=== PATIENT | male | born 1970 | race Caucasian/White ===

== ENCOUNTER 2019-12-30 09:29 | Emergency (ER) | payer BC, SELFPAY ==
[2019-12-30 09:30] VITALS: BP 184/97; PULSE 89; RESP 16; TEMP 36.3; O2SAT 96; BMI 47.3
--- NOTE | 2019-12-30 09:43 | EKG12_ITS ---
Test Reason : NIKOLAY Blood Pressure : / mmHG Vent. Rate : 076 BPM Atrial Rate : 076 BPM P-R Int : 160 ms QRS Dur : 098 ms QT Int : 388 ms P-R-T Axes : 022 031 034 degrees QTc Int : 436 ms Normal sinus rhythm Normal ECG Confirmed by DEBBIE MEDEROS, MANOJ ([id number]), development editor LUIS FERRARI ([id number]) on 01/03/2020 9:32:37 AM Referred By: DIZZY/WEAK Confirmed By:MATTHEW LEWIS MD
--- NOTE | 2019-12-30 09:43 | CT_ITS ---
STUDY: CT BRAIN WITHOUT CONTRAST REASON FOR EXAM: Male, 49 years old. DIZZINESS, DRIVING AND GOT LIGHT-HEADED, PT STATES THAT HE FEELS LIKE HE IS ON A ROLLER COASTER, WORSE WHEN MOVING HIS HEAD, HX-SLEEP APNEA RADIATION DOSAGE (If Supplied By Facility): CTDIvol = ( 44.99 ) mGy, DLP = ( 779.24 ) mGycm TECHNIQUE: Transaxial CT imaging of the brain was performed without administration of intravenous contrast material. Individualized dose optimization techniques were used for this CT. COMPARISON: No relevant priors. FINDINGS: Normal soft tissue structures. Normal calvarium. Normal size ventricles and extra-axial spaces for the patient''s age. Normal white matter tracts of the cerebral hemispheres. Normal basal ganglia and thalami. Normal brainstem. Normal cerebellum. There is no intracranial hemorrhage. There are no findings of an acute ischemic infarction. Normal visualized paranasal sinuses. CT/Brain/Head without Contrast IMPRESSION: Normal unenhanced CT scan of the brain. Electronically Signed: Misael Juan, at 10:52 EDT , Service support ,
--- NOTE | 2019-12-30 09:44 | ED.DCSUM_ITS ---
History of Present Illness Chief Complaint: Dizziness Informant: Patient Onset: Today Context: Sudden Onset Timing: Intermittent Current Severity: Mild Maximum Severity: Severe Narrative: The patient is a 49-year-old male who is otherwise healthy on no daily medications that presents to the emergency department after near syncopal episode. Patient states he was driving. He states he began to get lightheaded. He describes tunnel vision. He states he felt like he was going to pass out. He states with turning his head, it seemed to make the symptoms worse, but he does not describe a sensation of motion. He states that the sensation has passed and he still feels just mildly lightheaded. He states he is never had anything like this before. He denies any fevers or chills. He denies any vision change or trouble speaking. He has had no chest pain, weight loss, or night sweats. Prior similar symptoms: No Recent Illness/Hospitalization: No Past Medical History - Allergies and Home Meds Allergies/Adverse Reactions: Allergies No Known Allergies Allergy (Verified 12/30/19 09:32) Primary Care Physician: Wendie Dawn DO [Primary Care Provider] - Prior records reviewed: Yes Past Medical History: None Surgical History: no surgical history Smoking Status: Current some day smoker Review of Systems General: Denies: Chills, Fever, Sweats Eyes: Denies: Visual changes - bilaterally, Diplopia ENT: Denies: Rhinorrhea, Sore throat Cardiovascular: Denies: Chest pain, Palpitations Respiratory: Denies: Dyspnea, Cough, Dyspnea on exertion Gastrointestinal: Denies: Abdominal pain, Nausea, Vomiting, Diarrhea, Melena, Hematochezia Genitourinary: Denies: Dysuria, Hematuria, Frequency Musculoskeletal: Denies: Back pain, Extremity Pain Skin: Denies: Rash, Wounds Neurological: Denies: Headache, Weakness, Numbness Physical Exam Vital Signs/Narrative: Vital Signs Temp Pulse Resp BP Pulse Ox 12/30/19 09:30 97.4 F L 89 16 184/97 H 96 Inital Vital Signs reviewed: Yes General: Well nourished, Well developed, No Acute Distress Head: Normocephalic, Atraumatic Eyes: Perrl, EOMI ENT: Moist mucous membranes, No rhinorrhea Neck: Supple, Nontender Cardiovascular: Regular rate, Regular rhythm, No murmurs Respiratory: No distress, CTA bilaterally, Chest nontender Abdomen: Soft, Nontender, Nondistended, Normal bowel sounds Back: Nontender, Normal Inspection Extremities: Nontender, No edema Skin: Normal color, No rash Neurological: Alert, Oriented x3, Cranial nerves II-XII grossly intact, Normal Strength, Normal Sensation Psychological: Normal affect, Normal Mood Diagnostic/Tx/Re-eval Clinical Impression(s) from Imaging Studies Brain CT 12/30/19 09:43 IMPRESSION: Normal unenhanced CT scan of the brain. Electronically Signed: Misael Juan, at 10:52 EDT , Service support , Laboratory Last Values WBC 8.2 K/mm3 (4.4-11.0) 12/30/19 10:15 RBC 5.72 M/mm3 (4.6-6.2) 12/30/19 10:15 Hgb 16.1 g/dL (13.0-16.5) 12/30/19 10:15 Hct 51.3 % (40-54) 12/30/19 10:15 MCV 89.7 fL (80-94) 12/30/19 10:15 MCH 28.1 pg (27.0-32.0) 12/30/19 10:15 MCHC 31.4 g/dL (32-36) L 12/30/19 10:15 RDW Std Deviation 43.5 fl (35.1-43.9) 12/30/19 10:15 RDW Coeff of Meena 13.3 % (11.6-14.6) 12/30/19 10:15 Plt Count 235 K/mm3 (150-450) 12/30/19 10:15 MPV 10.9 fl (6.2-12.0) 12/30/19 10:15 Immature Gran % (Auto) 1.000 % (0.0-0.9) H 12/30/19 10:15 Neut % (Auto) 61.6 % (47-70) 12/30/19 10:15 Lymph % (Auto) 25.3 % (19-41) 12/30/19 10:15 [place] % (Auto) 8.4 % (0-10) 12/30/19 10:15 Eos % (Auto) 2.8 % (0-5) 12/30/19 10:15 Baso % (Auto) 0.9 % (0-1) 12/30/19 10:15 Absolute Neuts (auto) 5.1 X10^3/uL (2.0-7.7) 12/30/19 10:15 Absolute Lymphs (auto) 2.08 X10^3/uL (0.83-4.51) 12/30/19 10:15 Nucleated RBC % 0 % (0-5) 12/30/19 10:15 Sodium 138 mmol/L (136-145) 12/30/19 10:15 Potassium 4.6 mmol/L (3.5-5.1) 12/30/19 10:15 Chloride 105 mmol/L (98-107) 12/30/19 10:15 Carbon Dioxide 28.0 mmol/L (21.0-32.0) 12/30/19 10:15 Anion Gap 5 (5-15) 12/30/19 10:15 BUN 14 mg/dL (7-18) 12/30/19 10:15 Creatinine 1.17 mg/dL (0.70-1.30) 12/30/19 10:15 Estim Creat Clear Calc 77.12 ml/min 12/30/19 10:15 Est GFR (MDRD) Af Amer 84 mL/min (>60) 12/30/19 10:15 Est GFR (MDRD) Non-Af 70 mL/min (>60) 12/30/19 10:15 BUN/Creatinine Ratio 12.0 RATIO (10-20) 12/30/19 10:15 Glucose 88 mg/dL (74-106) 12/30/19 10:15 Calcium 9.3 mg/dL (8.5-10.1) 12/30/19 10:15 Total Bilirubin 0.70 mg/dL (0.20-1.00) 12/30/19 10:15 AST 40 U/L (15-37) H 12/30/19 10:15 ALT 58 U/L (16-61) 12/30/19 10:15 Alkaline Phosphatase 119 U/L (45-117) H 12/30/19 10:15 Total Protein 8.8 g/dL (6.4-8.2) H 12/30/19 10:15 Albumin 4.1 g/dL (3.2-5.0) 12/30/19 10:15 Globulin 4.7 g/dL (2.2-4.2) H 12/30/19 10:15 Albumin/Globulin Ratio 0.9 RATIO (0.9-2.4) 12/30/19 10:15 - Rhythm Strip Rhythm Strip: Sinus Rhythm Rate: 80 Ectopy: None - EKG Initial EKG Interpretation: Sinus Rhythm, No Acute Injury Pattern Prior: No Prior - Medical Decision Making The patient presents after near syncopal episode. He states he was driving, moved his head, and began to have tunnel vision. He states that it was fleeting. He states now, he feels back to himself. He has a nonfocal neurologic examination. There are some components that seem more like a vertiginous issue but some that seem more vagal. I cannot re-create his symptoms with rapid alternating head movements. I did obtain metabolic work-up, EKG, and head CT. These are unremarkable. Without intervention, the patient's repeat blood pressure was 135/86. At this point, I do feel that he safe outpa tient follow-up. I am going to have him follow-up with his primary care to for blood pressure recheck. He was counseled on concerning symptoms and reasons to return. He will be discharged home. Impression 1. Near syncope ED Disposition - Plan for ED Patient: Instructions: ED Near Syncope Vasovagal Referrals: Wendie Dawn DO [Primary Care Provider] -
[2019-12-30] MEDS: 0.9% Normal Saline 1,000 ML 1000 ML IV (10:17)
[2019-12-30 10:56] LABS: Absolute Lymphocyte Count 2.08 X10^3/uL (0.83-4.51); Absolute Neutrophil Count 5.1 X10^3/uL (2.0-7.7); Basophil# 0.07 X10^3/uL; Basophil% 0.9 % (0-1); Eosinophil# 0.23 X10^3/uL; Eosinophils% 2.8 % (0-5); Hematocrit 51.3 % (40-54); Hemoglobin 16.1 g/dL (13.0-16.5); Lymphocyte # 2.08 X10^3/ul (4.0); Lymphocyte % 25.3 % (19-41); Mean Corp Hgb Conc 31.4 g/dL (32-36); Mean Corpuscular Hgb 28.1 pg (27.0-32.0); Mean Corpuscular Volume 89.7 fL (80-94); Mean Platelet Vol. 10.9 fl (6.2-12.0); Monocyte# 0.69 X10^3/uL; Monocyte% 8.4 % (0-10); NRBC Flagged by Analyzer 0 % (0-5); Neutrophil # 5.08 X10^3/uL (2.7-7.7); Neutrophil % 61.6 % (47-70); Platelet Count 235 K/mm3 (150-450); RBC Distribution Width CV 13.3 % (11.6-14.6); RBC Distribution Width SD 43.5 fl (35.1-43.9); Red Blood Count 5.72 M/mm3 (4.6-6.2); White Blood Count 8.2 K/mm3 (4.4-11.0)
[2019-12-30 11:00] LABS: ALB/GLOB Ratio 0.9 RATIO (0.9-2.4); AST(SGOT) 40 U/L (15-37); Alanine Aminotransfer ALT/SGPT 58 U/L (16-61); Albumin, Serum 4.1 g/dL (3.2-5.0); Alkaline Phosphatase 119 U/L (45-117); Anion Gap 5 (5-15); BUN 14 mg/dL (7-18); Calcium,Total 9.3 mg/dL (8.5-10.1); Chloride 105 mmol/L (98-107); Creatinine, Serum 1.17 mg/dL (0.70-1.30); EST Glomerular Filtration Rate 70 mL/min (>60); Est Glom Filt Rate - Afr Amer 84 mL/min (>60); Estimated Creatinine Clearance 77.12 ml/min; Globulin 4.7 g/dL (2.2-4.2); Glucose 88 mg/dL (74-106); Potassium 4.6 mmol/L (3.5-5.1); Protein, Total 8.8 g/dL (6.4-8.2); Sodium Level 138 mmol/L (136-145)
[2019-12-30 11:07] VITALS: BP 147/85; BP 148/88; BP 169/89; PULSE 79; PULSE 80; PULSE 87
== END 2019-12-30 12:08 | disposition home or self-care (01) ==
LOC: ED 10:57
PROVIDERS: Emergency Provider Emergency Medicine; PCP Internal Medicine
DX: R55 Syncope and collapse (principal)
CPT/HCPCS: 70450; 80053; 85025; 93005; 96360; 96361; 99285; J7030

== ENCOUNTER → 2022-12-27 | Outpatient (CLI) | payer OTHER, SELFPAY ==
--- NOTE | 2022-12-27 14:43 | CT_ITS ---
HISTORY: Lower abdominal pain, distension, diarrhea, change in bowel habits. TECHNIQUE: Helically acquired images were obtained of the abdomen and pelvis after the intravenous administration of 100 mL Isovue-370. Oral contrast also administered. A radiation dose optimization technique was used for this scan. 512 images. COMPARISON: None. FINDINGS: LOWER CHEST: Lung bases clear. BOWEL: Bowel including appendix nondilated. Colonic diverticulosis without focal inflammatory change observed. PERITONEUM: No significant ascites. LIVER: Fatty infiltration. GALLBLADDER/BILIARY TREE: Gallbladder present. SPLEEN/PANCREAS/ADRENAL GLANDS: Homogeneous and nonenlarged. KIDNEYS: Renal sinus cysts bilaterally. VESSELS: No abdominal aortic aneurysm. PELVIC ORGANS: Unremarkable. ABDOMINAL WALL: Small fat-containing left periumbilical and inguinal hernias. BONES: Mild degenerative change CT/Abdomen/Pelvis WITH Contrast IMPRESSION: Colonic diverticulosis without acute diverticulitis. Hepatic steatosis. Bilateral renal sinus cysts. Electronically Signed: Samantha Rojas MD at 14:35 EDT ,
== END | disposition home or self-care (01) ==
LOC: CT 14:42
PROVIDERS: PCP Internal Medicine; Referring Provider Internal Medicine; Visit Provider Internal Medicine
DX: R10.84 Generalized abdominal pain (principal)
CPT/HCPCS: 74177; Q9967

== ENCOUNTER → 2025-03-17 | Outpatient (CLI) | payer BC, SELFPAY ==
[2025-03-17 13:38] LABS: Cholesterol 206 mg/dL (<=200); Glucose 92 mg/dL (70-99); Low Density Lipoprotein Calc. 128 mg/dL; Triglycerides 173 mg/dL; Very Low Density Lipoprotein 35 mg/dL (5-40); cholesterol:hdl ratio screen 4.34
--- OUTSIDE RECORDS SUMMARY | 2025-03-17 14:18 | XMS RPT_ITS | CCD ---
Author Organization [facility] Care Team Providers Care Iron Caster Name Role Phone López, Wendie Unavailable Jay Adams Unavailable Unavailable Laxmi Craig E Unavailable Unavailable Unavailable Herb, Edie Unavailable Unavailable Mancatherine, Sandy Unavailable Unavailable Heather Mock Unavailable Unavailable López DO, Wendie Unavailable [place] FLASH WELDING MACHINE OPERATOR, Radha Unavailable Unavailable Unavailable Unavailable Sabra Norman MD Unavailable [phone] López DO, Wendie Unavailable [phone] [place] CENTRIFUGE OPERATOR, Jamila Unavailable Unavailable Sabra Norman MD Unavailable Alyce Garcias CNP Unavailable [phone] [place] FLASH WELDING MACHINE OPERATOR, Kayela Unavailable Unavailable Herb CENTRIFUGE OPERATOR, Edie Unavailable Unavailable López DO, Wendie Attending Unavailable López DO, Wendie Referring Unavailable López DO, Wendie Consulting Unavailable Alice Pitts MA Unavailable Unavailable Robotham, Mallory Unavailable [place] CENTRIFUGE OPERATOR, Jorge L Unavailable Unavailable López, Wendie Primary Care Unavailable López, Wendie Referring Unavailable Leonardo Braswell Attending Unavailable Jayro Harrison Attending Unavailable López, Wendie Primary Care Unavailable Alice Hester Attending Unavailable López, Wendie Primary Care Unavailable López, Wendie Referring Unavailable Medications Completed/Discontinued Medications Medication Drug Class(es) Dates Sig (Normalized) Sig (Original) amoxicillin 875 mg / clavulanate 125 mg oral tablet (20 sources) Penicillin-class Antibacterial Start: 09-13-2019 End: 09-23-2019 take 1 tablet by mouth twice daily Amoxicillin-Pot Clavulanate 875-125 MG Oral Tablet 1 (one) Tablet bid for 10 days Quantity: 20 {Tablet} Refills: 0 Ordered: 13-Sep-2019 López KOROMA Wendie López KOROMA Wendie Start : 13-Sep-2019 End : 23-Sep-2019 Inactive Start: 07-25-2016 End: 08-04-2016 take 1 tablet by mouth twice daily Augmentin 875-125 MG Oral Tablet 1 (one) Tablet BID for 10 days Quantity: 20 {Tablet} Refills: 0 Ordered: 25-Jul-2016 Paula Diaz Start : 25-Jul-2016 End : 04-Aug-2016 Inactive Comments: Take with foodMay substitue generic Comment on above: Take with foodMay jackson bstitue generic aspirin 325 mg oral tablet (11 sources) Platelet Aggregation Inhibitor, Nonsteroidal Anti-inflammatory Drug Start: 06-19-19 End: 01-01-20 take 1 tablet by mouth in the morning Aspirin 325 MG Oral Tablet 1 (one) Tablet in am for 0 days Quantity: 30 {Tablet} Refills: 0 Ordered: 31-Dec-2021 Jamila Costa LPN Start : 19-Jun-2021 End : 31-Dec-2021 Inactive [facility] Blood Pressure Monitor Miscellaneous (5 sources) Start: 01-01-20 [facility] Blood Pressure Monitor Miscellaneous as directed for 0 days Quantity: 1 Kit Refills: 0 Ordered: 31-Dec-2021 Sarah Mays CMA Start : 31-Dec-2021 Active Comments: check BP at home twice per day and f/u in a week Start: 12-31-2021 [facility] Blood Pres sure Monitor Miscellaneous as directed for 0 days Quantity: 1 Kit Refills: 0 Ordered: 31-Dec-2021 Alyce Garcias CNP Start : 31-Dec-2021 Active Comments: check BP at home twice per day and f/u in a week Comment on above: check BP at home twi ce per day and f/u in a week 24 hr etodolac 400 mg extended release oral tablet (20 sources) Nonsteroidal Anti-inflammatory Drug Start: 5 End: 5 take 2 tablets by mouth once daily at mealtime ETODOLAC ER, 400MG (Oral Tablet Extended Release 24 Hour) 2 (two) Tablet ER 24HR qd with food for 0 days Quantity: 20 {Tablet} Refills: 0 Ordered: 16-Mar-2015 Paula Hernandez RN Start : 23-Feb-2015 End : 16-Mar-2015 Inactive Comments: start after the prednisone is completed adn take with food Comment on above: start after the pred nisone is completed adn take with food famotidine 40 mg oral tablet (11 sources) Histamine-2 Receptor Antagonist Start: 2 End: 2 take 1 tablet by mouth twice daily Pepcid 40 MG Oral Tablet 1 (one) Tablet bid for 0 days Quantity: 20 {Tablet} Refills: 0 Ordered: 31-Dec-2021 Jamila Costa LPN Start : 19-Jun-2021 End : 31-Dec-2021 Inactive predniSONE 20 mg oral tablet (20 sources) Start: 5 End: 5 PREDNISONE, 20MG (Oral Tablet) 1 (one) Tablet bid for one day then qd for 2 days for 0 days Quantity: 4 {Tablet} Refills: 0 Ordered: 16-Mar-2015 Paula Hernandez RN Start : 23-Feb-2015 End : 16-Mar-2015 Inactive Comments: take with food Comment on above: take with food NEGATED: Highlighted row has not occurred!drug or medication (13 sources) No Known Histori marcellus Medications NEGATED: Highlighted row has not occurred!No Known Historical Medications (6 sources) No Known Histori marcellus Medications Problems Active Problems Problem Classification Problem Date Documented Date Episodic/Chronic Abdominal pain (5 sources) Generalized abdominal pain; Translations: [Abdominal pain, generalized] 12-16-2022 Episodic Administrative/social admission (1 source) Administrative reason for encounter; Translations: [Encounter for other administrative examinations] 09-02-2022 Episodic Anxiety disorders (20 sources) Acute stress disorder; Translations: [Stress response] 12-31-2021 Chronic Comment on above: declines prn or sche duled meds. we are working on getting in better health in general, declines counseling but is aware to call if changes mindbetter since last visit a few weeks ago. Trying to take better care of self, dealing with nephew suicide. Cardiac dysrhythmias (20 sources) Tachycardia; Translations: [Tachycardia] 04-06-2019 Episodic Comment on above: this resolved to rat e of 80 andon ekg 91 Disorders of lipid metabolism (12 sources) Hyperlipidemia; Translations: [Hyperlipidemia] 01-08-2022 Chronic Comment on above: -he would really lik e to work hard on diet and exercise, wt loss. He lost about 100# about 6 yrs ago but when moved back to this area gained it all back. Advised should do 30min x5 days per week minimum. Cut back on breads as eats a lot of that. Also watch sugar intake, he does feel very poorly for 1-3 days after high sugar diet and has been working on cutting back.repeat lipids in 3 months and if he is still not well controlled, I strongly recommend atorvastatin 40mghe is appropriate for pharmacological managment but declines for now Fever of unknown origin (20 sources) Fever with chills; Translations: [Fever and chills] Resolved : 01-06-20 21 05-25-2020 Episodic Fluid and electrolyte disorders (20 sources) Hyperosmolality and hypernatremia; Translations: [Hypernatremia] Resolved : 01-01-2004-07-2019 Episodic Headache; including migraine (6 sources) Headache; Translations: [Headache] 07-12-2022 Episodic Comment on above: likely 2/2 allergy/s inus symptoms. ibuprofen and tylenol together if no contraindications. Immunizations and screening for infectious disease (20 sources) Contact with and (suspected) exposure to other viral communicable diseases; Translations: [Contact with or exposure to other viral diseases] 05-25-2020 Episodic Nausea and vomiting (20 sources) Nausea; Translations: [Nausea and vomiting] Resolved : 01-01-20 22 04-06-2019 Episodic Other circulatory disease (20 sources) Elevated blood-pressure reading without diagnosis of hypertension; Translations: [Elevated blood-pressure reading without diagnosis of hypertension] Resolved : 03-16-20 15 04-06-2019 Episodic Comment on above: -start checking BP a t home and record, f/u in a week and bring BP machine and list of readings.-If remains elevated, would start antihypertensivehigh stress with of nephew. Risk factors include stress and obesity. home readings are go od so will have him keep a log of one a.m. and one p.m. reading and go from there because he is really not wanting to start meds. I did extensively explain the risks of untreated hypertension and complications potentially, he does have multiple risk factors and a 10yr cardiovascular risk of 10.8%. We reviewed this and I gave him a handout as well. 131/78, 136/79, 147/89, 129/76, 128/73, 132/75 123/72, 129/76possible white coat syndrome.high stress with of nephew. Risk factors include stress and obesity.-start checking BP at home and record, f/u in a week and bring BP machine and list of readings.-If remains elevated, would start antihypertensive-took various bp's while here and all remain significantly elevated Other disorders of stomach and duodenum (6 sources) Upset stomach; Translations: [Stomach upset] 07-12-2022 Episodic Comment on above: on occasion Other gastrointestinal disorders (20 sources) Diarrhea; Translations: [Diarrhea] Resolved : 01-01-20 22 03-13-2020 Episodic Other gastrointestinal disorders (4 sources) Abdominal bloating; Translations: [Bloated abdomen] 12-16-2022 Episodic Other gastrointestinal disorders (4 sources) Change in stool caliber; Translations: [Change in stool caliber] 12-16-2022 Episodic Other lower respiratory disease (20 sources) Cough; Translations: [Cough] Resolved : 01-06-20 21 04-06-2019 Episodic Other nutritional; endocrine; and metabolic disorders (20 sources) Body mass index 40+ - severely obese; Translations: [BMI 50.0-59.9, adult] 04-06-2019 Chronic Other screening for suspected conditions (not mental disorders or infectious disease) (14 sources) Patient encounter status; Translations: [Encounter for lipid screening for cardiovascular disease] 01-02-2022 Episodic Other upper respiratory disease (16 sources) Seasonal allergy; Translations: [Seasonal allergies] 12-31-2021 Chronic Comment on above: start coricidin hbp for decongestant and cetirizine daily for the next week. push fluids (water). Other upper respiratory disease (6 sources) Allergic rhinitis; Translations: [Allergic rhinitis] 07-12-2022 Chronic Comment on above: mild, use PRN saline nasal spray or Flonase-take 10mg cetirizine daily-coricidin HBP, discussed how decongestants can raise BP-supportive care Other upper respiratory infections (20 sources) Bacterial sinusitis; Translations: [Sinusitis, bacterial] Resolved : 01-06-2004-06-2019 Chronic Residual codes; unclassified (20 sources) Chill; Translations: [Chills (without fever)] 04-06-2019 Episodic Residual codes; unclassified (20 sources) Non-smoker; Translations: [Non-smoker] 01-05-2021 Episodic Residual codes; unclassified (20 sources) At increased risk of cardiovascular disease; Translations: [At increased risk for cardiovascular disease] 01-02-2022 Episodic Comment on above: CV risk score 10.8% Spondylosis; intervertebral disc disorders; other back problems (20 sources) Low back pain; Translations: [Low back pain] Resolved : 03-16-2004-06-2019 Episodic Viral infection (17 sources) Disease caused by 2018-nCoV; Translations: [COVID] 06-19-2021 Episodic Past or Other Problems Problem Classification Problem Date Documented Da te Episodic/Chronic Headache; including migraine (20 sources) Headache; including migraine Unclassified (20 sources) Unspecified Diagnosis 04-06-2019 Unclassified (19 sources) Elevated Blood Pressure without diagnosis of Hypertension (796.2) Unclassified (20 sources) Unclassified (20 sources) Non-smoker; Translations: [Non-smoker] 04-06-2019 Unclassified (20 sources) Sinusitis, bacterial Unclassified (20 sources) BMI 50.0-59.9, adult Unclassified (13 sources) Serum sodium elevated Unclassified (15 sources) Exposure to COVID-19 virus Unclassified (3 sources) Elevated BP without diagnosis of hypertension Unclassified (2 sources) Stress response Unclassified (2 sources) Encounter for lipid screening for cardiovascular disease Unclassified (2 sources) At increased risk for cardiovascular disease Viral infection (5 sources) Disease caused by 2019-nCoV Results Test Name Value Interpretation Reference Range Facility Urgent Care Visit Reporton 0 08-24-2024 Urgent Care Visit Report [facility] [address], [address] [place] [address] OFFICE VISIT Date of Service: 08/24/24 MR#: [id number] Acct: [id number] Name: LB CUEVA Rep #: [id number] : 1970 Provider: INDERJIT Alexandra Age/Sex: 54/M Location: [facility] Status: Signed Intake Vital Signs 01/07/23 13:44 Height 5 ft 10 in Intake Visit 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 Mallory Capps MD) Abdominal pain History of change in bowel patterns Surgical History (Updated 01/07/23 @ 13:41 by Korin Tamayo) History of open reduction and internal fixation (ORIF) procedure Family History (Updated 01/07/23 @ 13:43 by Korin Tamayo) Grandmother Breast cancer Mother Cancer Lung Cancer CVA (cerebral vascular accident) Father Cancer Hypertension Brother Cancer Hypertension Social History (Updated 01/07/23 @ 13:44 by Korin Tamayo) Smoking Status: Never smoker alcohol intake: current alcohol intake frequency: a few times a week Alcohol type: hard liquor substance use type: does not use HPI HPI Details: LB CUEVA, is a 54 M who presents to the office today for Office Procedures Physical Exam Coding PE Coding DOT PE: Yes Coding Level of Care Code No Charge Diagnoses Encounter for examination required by Department of Transportation (DOT) Z02.89 Assessment and Plan Assessment and Plan (1) Encounter for examination required by Department of Transportation (DOT): Status: Acute 08/24/24 1314 Date Leonardo Samueligngil Signature: Date (if applicable) CC: Normal [facility] Knee 4 or More Viewson 04-06 Knee 4 or More Views [facility] [address] [place] [address] Knee 4 or More Views MR#: [id number] Acct: [id number] Name: LB CUEVA Rep #: [id number] : 1970 M 54 From: Dulce Maria Benitez MD PCP: Dr. Wendie Dawn, Status: DEP AMB Study: Knee 4 or More Views Date of Exam: 04/06/24 Exam# [id number] Ordering Dr: Alyce Garcias [id number] INDICATION: INCREASED PAIN -- KNEE PAIN RIGHT ANTERIOR EXAMINATION/TECHNIQUE: X-RAY - RIGHT XR Knee Complete 4 Views or More 4 VIEWS COMPARISON: Left knee dated September 19, 2005 FINDINGS: SOFT TISSUES: No soft tissue swelling or gas. No radiopaque foreign body. BONES/JOINTS: No acute fracture or subluxation.. There is lateral patellar tilt. There are mild degenerative changes of the medial compartment and the patellofemoral articulation. No sclerotic or destructive changes observed. RAD/Knee 4 or More Views IMPRESSION: Degenerative changes. Lateral patellar tilt. Electronically Signed: Dulce Maria Benitez MD at 8:58 EST , CC: TATYANA Garcias; Dr. Wendie Dawn DO Design Studio Consultant: Signed Normal [facility] C-REACTIVE PROTEIN ([id number])Or dered By: Director Medical Science on 12-17-2022 CRP [Mass/Vol] 12 mg/L Abnormal 0-10 Comprehens nini [facility]; [facility] Work Phone: Comment on above: PATIENT NOT FASTINGP ERFORMED BY: LabcoCarrier ClinicGyornd9396 [facility] [id number] CBC W/AUTO DIFF WBC ([id number])O rdered By: Director Medical Science on 12-17-2022 Basophils (Bld) [#/Vol] 0.1 10*3/uL Normal 0.0-0.2 [facility]; [facility] Work Phone: Comment on above: PATIENT NOT FASTINGP ERFORMED BY: BILLIE [facility] [id number] [facility] [id number] Basophils/100 WBC (Bld) 1 % Normal [facility]; [facility] Work Phone: Comment on above: PATIENT NOT FASTINGP ERFORMED BY: [facility] Offxwj3921 [facility] [id number] Eosinophils (Bld) [#/Vol] 0.3 10*3/uL Normal 0.0-0.4 [facility]; [facility] Work Phone: Comment on above: PATIENT NOT FASTINGP ERFORMED BY: [facility] Gxzydo7127 [facility] [id number] Eosinophils/100 WBC (Bld) 3 % Normal [facility]; [facility] Work Phone: Comment on above: PATIENT NOT FASTINGP ERFORMED BY: Gonzaloco Qaqdyo2560 [facility] [id number] Erythrocyte distribution width (RBC) [Ratio] 13.1 % Normal 11.6-15.4 [facility]; [facility] Work Phone: Comment on above: PATIENT NOT FASTINGP ERFORMED BY: [facility] Tiygph5594 [facility] [id number] Hematocrit (Bld) [Volume fraction] 45.8 % Normal 37.5-51.0 [facility]; [facility] Work Phone: Comment on above: PATIENT NOT FASTINGP ERFORMED BY: BILLIE [facility] Rphlju8693 [facility] [id number] Hemoglobin (Bld) [Mass/Vol] 15.2 g/dL Normal 13.0-17.7 [facility]; [facility] Work Phone: Comment on above: PATIENT NOT FASTINGP ERFORMED BY: BILLIE [facility] SchafferQwtxkm2318 [address]Dublin [place] [id number] Immature granulocytes (Bld) [#/Vol] 0.1 10*3/uL Normal 0.0-0.1 [facility]; [facility] Work Phone: Comment on above: PATIENT NOT FASTINGP ERFORMED BY: CB [facility] Ncxvsp8255 [address]Dublin [place] [id number] Immature granulocytes/100 WBC (Bld) 1 % Normal [facility]; [facility] Work Phone: Comment on above: PATIENT NOT FASTINGP ERFORMED BY: BILLIE [facility] Brgaht2265 [address]blin [place] [id number] Lymphocytes (Bld) [#/Vol] 2.3 10*3/uL Normal 0.7-3.1 [facility]; [facility] Work Phone: Comment on above: PATIENT NOT FASTINGP ERFORMED BY: [facility] Nvnrvb9435 [address]Dublin [place] [id number] Lymphocytes/100 WBC (Bld) 25 % Normal [facility]; [facility] Work Phone: Comment on above: PATIENT NOT FASTINGP ERFORMED BY: BILLIE Labarn[facility]fo Duaifl[address] [facility] [place] [id number] MCH (RBC) [Entitic mass] 28.9 pg Normal 26.6-33.0 [facility]; [facility] Work Phone: Comment on above: PATIENT NOT FASTINGP ERFORMED BY: CB [facility] Kljddj1915 [address]Dublin [place] [id number] MCHC (RBC) [Mass/Vol] 33.2 g/dL Normal 31.5-35.7 [facility]; [facility] Work Phone: Comment on above: PATIENT NOT FASTINGP ERFORMED BY: CB [facility] Mhsbgb5544 [address]Dublin [place] [id number] MCV (RBC) [Entitic vol] 87 fL Normal 79-97 [facility]; [facility] Work Phone: Comment on above: PATIENT NOT FASTINGP ERFORMED BY: CB [facility] Xwgkaw2126 [address]Dublin [place] [id number] Monocytes (Bld) [#/Vol] 0.9 10*3/uL Normal 0.1-0.9 [facility]; [facility] Work Phone: Comment on above: PATIENT NOT FASTINGP ERFORMED BY: CB [facility] Znlzod3920 [address]Dublin [place] [id number] Monocytes/100 WBC (Bld) 10 % Normal [facility]; [facility] Work Phone: Comment on above: PATIENT NOT FASTINGP ERFORMED BY: CB [facility] Hdeeez6296 [address]Dublin [place] [id number] Neutrophils (Bld) [#/Vol] 5.6 10*3/uL Normal 1.4-7.0 [facility]; [facility] Work Phone: Comment on above: PATIENT NOT FASTINGP ERFORMED BY: CB [facility] Jncrli2790 [address]Dublin [place] [id number] Neutrophils/100 WBC (Bld) 60 % Normal [facility]; [facility] Work Phone: Comment on above: PATIENT NOT FASTINGP ERFORMED BY: CB [facility] Wyqxjw9438 [address]Dublin [place] [id number] Platelets (Bld) [#/Vol] 239 10*3/uL Normal 150-450 [facility]; [facility] Work Phone: Comment on above: PATIENT NOT FASTINGP ERFORMED BY: CB [facility] Vvgonk8286 [address]Dublin [place] [id number] RBC (Bld) [#/Vol] 5.26 10*6/uL Normal 4.14-5.80 [facility]; [facility] Work Phone: Comment on above: PATIENT NOT FASTINGP ERFORMED BY: CB [facility] Icxidg0484 [address] [place] [id number] WBC (Bld) [#/Vol] 9.3 10*3/uL Normal 3.4-10.8 [facility]; [facility] Work Phone: Comment on above: PATIENT NOT FASTINGP ERFORMED BY: BILLIE [facility] Wyoxux6095 [address]Dublin [place] [id number] METABOLIC PANEL, COMPREHENSI VE ([id number])Ordered By: Director Medical Science on 12-17-2022 Albumin [Mass/Vol] 4.3 g/dL Normal 3.8-4.9 [facility]; [facility] Work Phone: Comment on above: PATIENT NOT FASTINGP ERFORMED BY: BILLIE [facility] Wxjiyv4998 [address]Dublin [place] [id number] Albumin/Globulin [Mass ratio] 1.4 {ratio} Normal 1.2-2.2 [facility]; [facility] Work Phone: Comment on above: PATIENT NOT FASTINGP ERFORMED BY: BILLIE [facility] Unxeuj9665 [address] RoadAtrium Health Unionin [place] [id number] ALP [Catalytic activity/Vol] 120 U/L Normal 44-121 [facility]; [facility] Work Phone: Comment on above: PATIENT NOT FASTINGP ERFORMED BY: BILLIE [facility] Myhhcb8587 [address]Dublin [place] [id number] ALT [Catalytic activity/Vol] 31 U/L Normal 0-44 [facility]; [facility] Work Phone: Comment on above: PATIENT NOT FASTINGP ERFORMED BY: BILLIE [facility] Tmsdmb5600 [address]Dublin [place] [id number] AST [Catalytic activity/Vol] 30 U/L Normal 0-40 [facility]; [facility] Work Phone: Comment on above: PATIENT NOT FASTINGP ERFORMED BY: BILLIE [facility] Ansspp3014 [address]Dublin [place] [id number] Bilirubin [Mass/Vol] 0.7 mg/dL Normal 0.0-1.2 Comp [facility] Internal [facility]; [facility] Work Phone: Comment on above: PATIENT NOT FASTINGP ERFORMED BY: CB [facility] Uksvmd5675 [address]Dublin [place] [id number] Calcium [Mass/Vol] 9.5 mg/dL Normal 8.7-10.2 [facility]; [facility] Work Phone: Comment on above: PATIENT NOT FASTINGP ERFORMED BY: CB [facility] Xvktrx6639 [address]Dublin [place] [id number] Chloride [Moles/Vol] 102 mmol/L Normal 96-106 Comp rehensive [facility]; [facility] Work Phone: Comment on above: PATIENT NOT FASTINGP ERFORMED BY: CB [facility] Uyyrid5951 [address]Dublin [place] [id number] CO2 [Moles/Vol] 23 mmol/L Normal 20-29 Com[facility]hen [facility]; [facility] Work Phone: Comment on above: PATIENT NOT FASTINGP ERFORMED BY: CB [facility] [id number] [address]Dublin [place] [id number] Creatinine [Mass/Vol] 1.03 mg/dL Normal 0.76-1.27 [facility]; [facility] Work Phone: Comment on above: PATIENT NOT FASTINGP ERFORMED BY: CB [facility] Tatbcy3496 [address]Dublin [place] [id number] GFR/1.73 sq M.predicted among non-blacks MDRD (S/P/Bld) [Vol rate/Area] 86 mL/min/{1.73_m2} Normal Comprehensiv e Internal Medicine; [facility] Work Phone: Comment on above: PATIENT NOT FASTINGP ERFORMED BY: CB [facility] Lzocfc6652 [address]Dublin [place] [id number] Globulin (S) [Mass/Vol] 3.0 g/dL Normal 1.5-4.5 [facility]; [facility] Work Phone: Comment on above: PATIENT NOT FASTINGP ERFORMED BY: CB [facility] Pqrgui9117 [address]Dublin [place] [id number] Glucose [Mass/Vol] 90 mg/dL Normal 70-99 [facility]; [facility] Work Phone: Comment on above: PATIENT NOT FASTINGP ERFORMED BY: BILLIE [facility] Mwrzzr3838 [address]Dublin [place] [id number] Potassium [Moles/Vol] 4.8 mmol/L Normal 3.5-5.2 [facility]; [facility] Work Phone: Comment on above: PATIENT NOT FASTINGP ERFORMED BY: CB [facility] Zeshic2899 [address]Dublin [place] [id number] Protein [Mass/Vol] 7.3 g/dL Normal 6.0-8.5 [facility] Internal Medicine; [facility] Work Phone: Comment on above: PATIENT NOT FASTINGP ERFORMED BY: CB [facility] Iibqdh05[address]Dublin [place] [id number] Sodium [Moles/Vol] 141 mmol/L Normal 134-144 [facility] Internal [facility]; [facility] Work Phone: Comment on above: PATIENT NOT FASTINGP ERFORMED BY: CB [facility] Femwgc8014 [address] RoadDublin [place] [id number] Urea nitrogen [Mass/Vol] 15 mg/dL Normal 6-24 [facility]; [facility] Work Phone: Comment on above: PATIENT NOT FASTINGP ERFORMED BY: CB [facility] Werwuv1947 [address]Dublin [place] [id number] Urea nitrogen/Creatinine [Mass ratio] 15 mg/mg Normal 9-20 [facility]; [facility] Work Phone: Comment on above: PATIENT NOT FASTINGP ERFORMED BY: CB [facility] Yypxen0059 [address] RoadDublin [place] [id number] MICROALBUMINOrdered By: Syst em Overhead Distribution Engineer on 12-17-2022 Albumin DL <= 20 mg/L (U) [Mass/Vol] 7.6 ug/mL Normal Comprehensiv e Internal Medicine; [facility] Work Phone: Comment on above: PATIENT NOT FASTINGP ERFORMED BY: CB [facility] Kljapc5710 [address]Dublin [place] [id number] Albumin/Creatinine (U) [Mass ratio] 5 {mg/g_creat} Normal 0-29 [facility]; [facility] Work Phone: Comment on above: Normal: 0 - 29 Moder ately increased: 30 - 300 Severely increased: >300 PATIENT NOT FASTINGP ERFORMED BY: BILLIE [facility] Vpkwse0259 [address] RoadDublin [place] [id number] Creatinine (U) [Mass/Vol] 156.3 mg/dL Normal [facility]; [facility] Work Phone: Comment on above: PATIENT NOT FASTINGP ERFORMED BY: BILLIE [facility] Tbtczn5409 [address]Dublin [place] [id number] Sed Rate Erythrocyte (87108) Ordered By: Director Medical Science on 12-17-2022 ESR (Bld) [Velocity] 27 mm/h Normal 0-30 Comp rehensive Internal Medicine; [facility] Work Phone: Comment on above: PATIENT NOT FASTINGP ERFORMED BY: BILLIE [facility] Esqjch9085 [address]Dublin [place] [id number] TSH ([id number])Ordered By: Flasma m Overhead Distribution Engineer on 12-17-2022 TSH Qn 1.580 {uIU/mL} Normal 0.450-4.50 0 [facility]; [facility] Work Phone: Comment on above: PATIENT NOT FASTINGP ERFORMED BY: BILLIE [facility] Qjkuzu[address] [facility] [place] [id number] URINALYSIS, W/ MICRO ([id number]) Ordered By: Director Medical Science on 12-17-2022 Appearance (U) Clear Normal Comprehens nini Internal Medicine; [facility] Work Phone: Comment on above: PATIENT NOT FASTINGP ERFORMED BY: CB [facility] Crthrx1063 [address]Dublin [place] [id number] Bilirubin Ql (U) Negative Normal Comprehe nsive Internal Medicine; [facility] Work Phone: Comment on above: PATIENT NOT FASTINGP ERFORMED BY: CB [facility] Xlzfjz3006 [address]Dublin [place] [id number] Color (U) Yellow Normal [facility]; [facility] Work Phone: Comment on above: PATIENT NOT FASTINGP ERFORMED BY: BILLIE [facility]Mad[facility] [id number] Glucose Ql (U) Negative Normal Comprehens nini Internal Medicine; [facility] Work Phone: Comment on above: PATIENT NOT FASTINGP ERFORMED BY: BILLIE Jacobo Lidusp5720 [facility] [id number] Hemoglobin Ql (U) Negative Normal Compreh ensive Internal Medicine; [facility] Work Phone: Comment on above: PATIENT NOT FASTINGP ERFORMED BY: BILLIE Sashaines SchafferQsdcqn4047 [facility] [id number] Ketones Ql (U) Negative Normal Comprehens nini Internal Medicine; [facility] Work Phone: Comment on above: PATIENT NOT FASTINGP ERFORMED BY: BILLIE Gonzalotheresa SchafferVpmisc4986 [facility] [id number] Leukocyte esterase Test strip Ql (U) Negative Normal [facility]; [facility] Work Phone: Comment on above: PATIENT NOT FASTINGP ERFORMED BY: BILLIE Gonzalotheresa SchafferVpebdz4540 [facility] [id number] Microscopic observation LM Nom (Urine sed) MICRON Normal [facility]; [facility] Work Phone: Comment on above: Microscopic follows if indicated. PATIENT NOT FASTINGP ERFORMED BY: BILLIE Jacobo Schafferlin6370 [facility] [id number] Microscopic observation LM Nom (Urine sed) See below: Normal [facility]; [facility] Work Phone: Comment on above: Microscopic was delores cated and was performed. PATIENT NOT FASTINGP ERFORMED BY: BILLIE Jacobo Yqsheh6637 [facility] [id number] Nitrite Ql (U) Negative Normal Comprehens nini Internal Medicine; [facility] Work Phone: Comment on above: PATIENT NOT FASTINGP ERFORMED BY: CB [facility] Eejiod[address] [facility] [place] [id number] pH (U) 7.5 [pH] Normal 5.0-7.5 [facility]; [facility] Work Phone: Comment on above: PATIENT NOT FASTINGP ERFORMED BY: [facility] Cpkpsa[address] [facility] [id number] Protein Ql (U) Negative Normal Comprehens nini Internal Medicine; [facility] Work Phone: Comment on above: PATIENT NOT FASTINGP ERFORMED BY: [facility] Ujztpg6914 [facility] [id number] Specific gravity (U) [Rel density] 1.022 1 Normal 1.005-1.03 0 [facility]; [facility] Work Phone: Comment on above: PATIENT NOT FASTINGP ERFORMED BY: [facility] Kjhmsv4[address] [facility] [id number] Urobilinogen (U) [Mass/Vol] 0.2 mg/dL Normal 0.2-1.0 [facility]; [facility] Work Phone: Comment on above: PATIENT NOT FASTINGP ERFORMED BY: [facility] Lpsbuf7135 [facility] [id number] INHOUSE COVID 19 (ONLY) RAPI D ([id number])Ordered By: Alice Pitts on 07-12-2022 SARS-CoV-2 (COVID-19) RNA KRISTY+probe Ql (Unsp spec) Negative Normal [facility]; [facility] Work Phone: Inhouse FLU A+B DIRECT AG, ( RAPID) ([id number])Ordered By: Alice Pitts on 07-12-2022 FLUAV+FLUBV Ag Ql (Unsp spec) Negative Normal [facility]; [facility] Work Phone: CBC, PLATELETS & MANUAL DIFF ([id number])Ordered By: Director Medical Science on 01-01-2022 Basophils (Bld) [#/Vol] 0.1 10*3/uL Normal 0.0-0.2 [facility]; [facility] Work Phone: Comment on above: PATIENT NOT FASTINGP ERFORMED BY: CB [facility] Isuubw2741 [address]Dublin [place] [id number] Basophils/100 WBC (Bld) 1 % Normal [facility]; [facility] Work Phone: Comment on above: PATIENT NOT FASTINGP ERFORMED BY: CB [facility] Tvgoqp3592 [address]Dublin [place] [id number] Eosinophils (Bld) [#/Vol] 0.2 10*3/uL Normal 0.0-0.4 [facility]; [facility] Work Phone: Comment on above: PATIENT NOT FASTINGP ERFORMED BY: CB [facility] Pqqoxg3755 [address] RoadDublin [place] [id number] Eosinophils/100 WBC (Bld) 3 % Normal [facility]; [facility] Work Phone: Comment on above: PATIENT NOT FASTINGP ERFORMED BY: CB [facility] Qmjcdi1733 [address] RoadAtrium Health Unionin [place] [id number] Erythrocyte distribution width (RBC) [Ratio] 13.1 % Normal 11.6-15.4 [facility]; [facility] Work Phone: Comment on above: PATIENT NOT FASTINGP ERFORMED BY: CB [facility] Pgyqdi1298 [address] RoadDublin [place] [id number] Hematocrit (Bld) [Volume fraction] 47.8 % Normal 37.5-51.0 [facility]; [facility] Work Phone: Comment on above: PATIENT NOT FASTINGP ERFORMED BY: CB [facility] Uoecbm9128 [address]Dublin [place] [id number] Hemoglobin (Bld) [Mass/Vol] 15.8 g/dL Normal 13.0-17.7 [facility]; [facility] Work Phone: Comment on above: PATIENT NOT FASTINGP ERFORMED BY: CB [facility] Tgabxm4195 [address] RoadDublin [place] [id number] Immature granulocytes (Bld) [#/Vol] 0.1 10*3/uL Normal 0.0-0.1 [facility]; [facility] Work Phone: Comment on above: PATIENT NOT FASTINGP ERFORMED BY: BILLIE Labtheresa White6370 [address]Dublin [place] [id number] Immature granulocytes/100 WBC (Bld) 1 % Normal [facility]; [facility] Work Phone: Comment on above: PATIENT NOT FASTINGP ERFORMED BY: CB [facility] Qdgbud3436 [address] RoadDublin [place] [id number] Lymphocytes (Bld) [#/Vol] 2.7 10*3/uL Normal 0.7-3.1 [facility]; [facility] Work Phone: Comment on above: PATIENT NOT FASTINGP ERFORMED BY: BILLIE Labtheresa White6370 [address]Dublin [place] [id number] Lymphocytes/100 WBC (Bld) 29 % Normal [facility]; [facility] Work Phone: Comment on above: PATIENT NOT FASTINGP ERFORMED BY: BILLIE [facility] Udgckn3560 [address] RoadAtrium Health Unionin [place] [id number] MCH (RBC) [Entitic mass] 28.8 pg Normal 26.6-33.0 [facility]; [facility] Work Phone: Comment on above: PATIENT NOT FASTINGP ERFORMED BY: BILLIE [facility] Jtcqpv[address] [facility] CenterD[facility] [place] [id number] MCHC (RBC) [Mass/Vol] 33.1 g/dL Normal 31.5-35.7 [facility]; [facility] Work Phone: Comment on above: PATIENT NOT FASTINGP ERFORMED BY: CB [facility] Arklwq6942 [address] RoadDublin [place] [id number] MCV (RBC) [Entitic vol] 87 fL Normal 79-97 [facility]; [facility] Work Phone: Comment on above: PATIENT NOT FASTINGP ERFORMED BY: CB [facility] Fohiei0902 [address]Dublin [place] [id number] Monocytes (Bld) [#/Vol] 1.0 10*3/uL Abnormal 0.1-0.9 [facility]; [facility] Work Phone: Comment on above: PATIENT NOT FASTINGP ERFORMED BY: CB [facility] Jysjhe7750 [address] RoadDublin [place] [id number] Monocytes/100 WBC (Bld) 10 % Normal [facility]; [facility] Work Phone: Comment on above: PATIENT NOT FASTINGP ERFORMED BY: CB [facility] Tqcruf1961 [address]Dublin [place] [id number] Neutrophils (Bld) [#/Vol] 5.2 10*3/uL Normal 1.4-7.0 [facility]; [facility] Work Phone: Comment on above: PATIENT NOT FASTINGP ERFORMED BY: CB [facility] Wvefhc2626 [address]Dublin [place] [id number] Neutrophils/100 WBC (Bld) 56 % Normal [facility]; [facility] Work Phone: Comment on above: PATIENT NOT FASTINGP ERFORMED BY: CB [facility] Xbzfyu9489 [address] RoadDublin [place] [id number] Platelets (Bld) [#/Vol] 220 10*3/uL Normal 150-450 [facility]; [facility] Work Phone: Comment on above: PATIENT NOT FASTINGP ERFORMED BY: CB [facility] Onyybc4866 [address] RoadDublin [place] [id number] RBC (Bld) [#/Vol] 5.49 10*6/uL Normal 4.14-5.80 Compr ehensive Internal Medicine; [facility] Work Phone: Comment on above: PATIENT NOT FASTINGP ERFORMED BY: CB [facility] Davfts8109 [address]Dublin [place] [id number] WBC (Bld) [#/Vol] 9.2 10*3/uL Normal 3.4-10.8 Compre hensive Internal Medicine; [facility] Work Phone: Comment on above: PATIENT NOT FASTINGP ERFORMED BY: CB [facility] Zjhszq5520 [address] RoadDublin [place] [id number] LIPID PANEL ([id number])Ordered B y: Director Medical Science on 01-01-2022 Cholesterol [Mass/Vol] 230 mg/dL Abnormal 100-199 [facility]; [facility] Work Phone: Comment on above: PATIENT NOT FASTINGP ERFORMED BY: BILLIE Labtheresa SchafferPqbkjy7214 [address] RoadDublin [place] [id number] Cholesterol in HDL [Mass/Vol] 45 mg/dL Normal [facility]; [facility] Work Phone: Comment on above: PATIENT NOT FASTINGP ERFORMED BY: BILLEI [facility] Ahbhxw2069 [address] RoadDublin [place] [id number] Triglyceride [Mass/Vol] 182 mg/dL Abnormal 0-149 [facility]; [facility] Work Phone: Comment on above: PATIENT NOT FASTINGP ERFORMED BY: BILLIE Schafferlin6370 [address] RoadDublin [place] [id number] LIPID PANEL (58605) 33 mg/dL Normal 5-40 Compr ensive Internal Medicine; [facility] Work Phone: Comment on above: PATIENT NOT FASTINGP ERFORMED BY: BILLIE Labtheresa SchafferItryqu3087 [address] RoadDublin [place] [id number] LIPID PANEL (27943) 152 mg/dL Abnormal 0-99 Compr ensive Internal Medicine; [facility] Work Phone: Comment on above: PATIENT NOT FASTINGP ERFORMED BY: BILILE [facility] Beylgw7997 [address]Dublin [place] [id number] LIPID PANEL (71259) 3.4 {ratio} Normal 0.0-3.6 Comp [facility]; [facility] Work Phone: Comment on above: LDL/HDL Ratio Men Wo men 1/2 Avg.Risk 1.0 1.5 Avg.Risk 3.6 3.2 2X Avg.Risk 6.2 5.0 3X Avg.Risk 8.0 6.1 PATIENT NOT FASTINGP ERFORMED BY: BILLIE [facility] Aqjytu5774 [address] RoadDublin [place] [id number] METABOLIC PANEL, COMPREHENSI VE ([id number])Ordered By: Director Medical Science on 01-01-2022 Albumin [Mass/Vol] 4.6 g/dL Normal 3.8-4.9 [facility] Internal Medicine; [facility] Work Phone: Comment on above: PATIENT NOT FASTINGP ERFORMED BY: CB [facility] Roqiir9846 [address] RoadDublin [place] [id number] Albumin/Globulin [Mass ratio] 1.6 {ratio} Normal 1.2-2.2 [facility]; [facility] Work Phone: Comment on above: PATIENT NOT FASTINGP ERFORMED BY: CB [facility] Iilurc2403 [address]Dublin [place] [id number] ALP [Catalytic activity/Vol] 114 U/L Normal 44-121 [facility]; [facility] Work Phone: Comment on above: PATIENT NOT FASTINGP ERFORMED BY: CB [facility] Fcyvpy8300 [address] RoadDublin [place] [id number] ALT [Catalytic activity/Vol] 37 U/L Normal 0-44 [facility]; [facility] Work Phone: Comment on above: PATIENT NOT FASTINGP ERFORMED BY: CB [facility] Iwbllm1920 [address]Dublin [place] [id number] AST [Catalytic activity/Vol] 36 U/L Normal 0-40 [facility]; [facility] Work Phone: Comment on above: PATIENT NOT FASTINGP ERFORMED BY: CB [facility] Vjewot5523 [address] RoadDublin [place] [id number] Bilirubin [Mass/Vol] 0.9 mg/dL Normal 0.0-1.2 [facility]; [facility] Work Phone: Comment on above: PATIENT NOT FASTINGP ERFORMED BY: CB [facility] Ilkxzq0417 [address] RoadDublin [place] [id number] Calcium [Mass/Vol] 10.0 mg/dL Normal 8.7-10.2 [facility]; [facility] Work Phone: Comment on above: PATIENT NOT FASTINGP ERFORMED BY: CB [facility] Ctrcji3003 [address] RoadDublin [place] [id number] Chloride [Moles/Vol] 99 mmol/L Normal 96-106 Comp rehensive Internal Medicine; [facility] Work Phone: Comment on above: PATIENT NOT FASTINGP ERFORMED BY: CB [facility] Rniawt4556 [address] RoadDublin [place] [id number] CO2 [Moles/Vol] 23 mmol/L Normal 20-29 Comprehen sive Internal Medicine; [facility] Work Phone: Comment on above: PATIENT NOT FASTINGP ERFORMED BY: CB [facility] Tmolit3968 [address] RoadDublin [place] [id number] Creatinine [Mass/Vol] 1.07 mg/dL Normal 0.76-1.27 [facility]; [facility] Work Phone: Comment on above: PATIENT NOT FASTINGP ERFORMED BY: [facility] Lqkvyn7613 [address] RoadDublin [place] [id number] GFR/1.73 sq M.predicted among non-blacks MDRD (S/P/Bld) [Vol rate/Area] 83 mL/min/{1.73_m2} Normal Comprehensiv e Internal Medicine; [facility] Work Phone: Comment on above: PATIENT NOT FASTINGP ERFORMED BY: [facility] Bksskp6657 [address] RoadDublin [place] [id number] Globulin (S) [Mass/Vol] 2.9 g/dL Normal 1.5-4.5 [facility]; [facility] Work Phone: Comment on above: PATIENT NOT FASTINGP ERFORMED BY: CB [facility] Zvktwi3299 [address] RoadDublin [place] [id number] Glucose [Mass/Vol] 86 mg/dL Normal 65-99 Compre [facility] Internal Medicine; [facility] Work Phone: Comment on above: PATIENT NOT FASTINGP ERFORMED BY: CB [facility] Dtuvns7599 [address]Dublin [place] [id number] Potassium [Moles/Vol] 5.1 mmol/L Normal 3.5-5.2 [facility]; [facility] Work Phone: Comment on above: PATIENT NOT FASTINGP ERFORMED BY: BILLIE White[address] [facility] [place] [id number] Protein [Mass/Vol] 7.5 g/dL Normal 6.0-8.5 [facility]; [facility] Work Phone: Comment on above: PATIENT NOT FASTINGP ERFORMED BY: BILLIE Labtheresa White[address] [facility] [place] [id number] Sodium [Moles/Vol] 138 mmol/L Normal 134-144 [facility]; [facility] Work Phone: Comment on above: PATIENT NOT FASTINGP ERFORMED BY: BILLIE White[address] [facility] [place] [id number] Urea nitrogen [Mass/Vol] 13 mg/dL Normal 6-24 [facility]; [facility] Work Phone: Comment on above: PATIENT NOT FASTINGP ERFORMED BY: BILLIE Labarnulfo Bhuxvc[address] [facility] [place] [id number] Urea nitrogen/Creatinine [Mass ratio] 12 mg/mg Normal 9-20 [facility]; [facility] Work Phone: Comment on above: PATIENT NOT FASTINGP ERFORMED BY: BILLIE Labarnulfo Mpprpv[address] [facility] [place] [id number] TSH (THYROID STIMULATING HOR REGLA) ([id number])Ordered By: Director Medical Science on 01-01-2022 TSH Qn 2.230 {uIU/mL} Normal 0.450-4.50 0 [facility]; [facility] Work Phone: Comment on above: PATIENT NOT FASTINGP ERFORMED BY: BILLIE [facility] Spqfkb[address] [facility] [place] [id number] INHOUSE COVID 19 (ONLY) RAPI D ([id number])on 06-19-2021 SARS-CoV-2 (COVID-19) RNA KRISTY+probe Ql (Unsp spec) Positive Normal [facility]; [facility] Work Phone: 2018 Novel Coronavirus (COVI D-19), KRISTY ([id number])Ordered By: Director Medical Science on 05-25-20202018 Novel Coronavirus (COVID-19), KRISTY ([id number]) Not Detected Normal [facility]; [facility] Work Phone: Comment on above: This nucleic acid am plification test was developed and its performancecharacteristics determined by [facility]. Nucleic acidamplification tests include PCR and TMA. This test has not been FDAcleared or approved. This test has been authorized by FDA under anEmergency Use Authorization (EUA). This test is only authorized forthe duration of time the declaration that circumstances existjustifying the authorization of the emergency use of in vitrodiagnostic tests for detection of SARS-CoV-2 virus and/or diagnosisof COVID-19 infection under section 564(b)(1) of the Act, 21 U.S.C.360bbb-3(b) (1), unless the authorization is terminated or revokedsooner.When diagnostic testing is negative, the possibility of a falsenegative result should be considered in the context of a patient'srecent exposures and the presence of clinical signs and symptomsconsistent with COVID-19. An individual without symptoms of COVID-19and who is not shedding SARS-CoV-2 virus would expect to have anegative (not detected) result in this assay. PATIENT NOT FASTINGP ERFORMED BY: BILLIE [facility]6370 [facility] [id number] 2018 Novel Coronavirus (COVID-19), KRISTY ([id number]) Not detected Normal [facility]; [facility] Work Phone: Comment on above: This nucleic acid am plification test was developed and its performancecharacteristics determined by [facility]. Nucleic acidamplification tests include PCR and TMA. This test has not been FDAcleared or approved. This test has been authorized by FDA under anEmergency Use Authorization (EUA). This test is only authorized forthe duration of time the declaration that circumstances existjustifying the authorization of the emergency use of in vitrodiagnostic tests for detection of SARS-CoV-2 virus and/or diagnosisof COVID-19 infection under section 564(b)(1) of the Act, 21 U.S.C.360bbb-3(b) (1), unless the authorization is terminated or revokedsooner.When diagnostic testing is negative, the possibility of a falsenegative result should be considered in the context of a patient'srecent exposures and the presence of clinical signs and symptomsconsistent with COVID-19. An individual without symptoms of COVID-19and who is not shedding SARS-CoV-2 virus would expect to have anegative (not detected) result in this assay. PATIENT NOT FASTINGP ERFORMED BY: CB [facility] Coixmw0692 [address]Dublin [place] [id number] CBC, Platelets & Auto Diff ( [id number])Ordered By: Director Medical Science on 04-06-2019 Basophils (Bld) [#/Vol] 0.1 {x10E3/uL} Normal 0.0-0.2 [facility] Work Phone: Comment on above: PATIENT NOT FASTINGP ERFORMED BY: CB [facility] Tqtgiy3523 [address]Dublin [place] [id number] Basophils (Bld) [#/Vol] 0.1 10*3/uL Normal 0.0-0.2 [facility]; [facility] Work Phone: Comment on above: PATIENT NOT FASTINGP ERFORMED BY: CB [facility] Dgratv0383 [address]Dublin [place] [id number] Basophils/100 WBC (Bld) 1 % Normal [facility] Work Phone: Comment on above: PATIENT NOT FASTINGP ERFORMED BY: CB [facility] Dtrnxw5373 [address]Dublin [place] [id number] Eosinophils (Bld) [#/Vol] 0.3 {x10E3/uL} Normal 0.0-0.4 [facility] Work Phone: Comment on above: PATIENT NOT FASTINGP ERFORMED BY: CB [facility] Cxvosl5073 [address] RoadDublin [place] [id number] Eosinophils (Bld) [#/Vol] 0.3 10*3/uL Normal 0.0-0.4 [facility]; [facility] Work Phone: Comment on above: PATIENT NOT FASTINGP ERFORMED BY: BILLIE White6370 [address]bl[address] [place] [id number] Eosinophils/100 WBC (Bld) 4 % Normal [facility] Work Phone: Comment on above: PATIENT NOT FASTINGP ERFORMED BY: BILLIE SánchezCoines WhiteOrickg7484 [address] [facility] [place] [id number] Erythrocyte distribution width (RBC) [Ratio] 14.8 % Normal 12.3-15.4 [facility] Work Phone: Comment on above: PATIENT NOT FASTINGP ERFORMED BY: BILLIE [facility] WhiteHeoexs8724 [address] [facility] [id number] Hematocrit (Bld) [Volume fraction] 48.7 % Normal 37.5-51.0 [facility] Work Phone: Comment on above: PATIENT NOT FASTINGP ERFORMED BY: BILLIE White[address] [facility] [place] [id number] Hemoglobin (Bld) [Mass/Vol] 16.1 g/dL Normal 13.0-17.7 [facility] Work Phone: Comment on above: PATIENT NOT FASTINGP ERFORMED BY: BILLIE SánchezCo Kinyqu3321 [address] RoadAtrium Health Unionin [place] [id number] Immature granulocytes (Bld) [#/Vol] 0.1 {x10E3/uL} Normal 0.0-0.1 [facility] Work Phone: Comment on above: PATIENT NOT FASTINGP ERFORMED BY: BILLIE [facility] Bhuiiz1347 [address]Dublin [place] [id number] Immature granulocytes (Bld) [#/Vol] 0.1 10*3/uL Normal 0.0-0.1 [facility]; [facility] Work Phone: Comment on above: PATIENT NOT FASTINGP ERFORMED BY: BILLIE [facility] Iwvrrj3576 [address]Dublin [place] [id number] Immature granulocytes/100 WBC (Bld) 1 % Normal [facility] Work Phone: Comment on above: PATIENT NOT FASTINGP ERFORMED BY: CB [facility] [id number] [address]Dublin [place] [id number] Lymphocytes (Bld) [#/Vol] 2.3 {x10E3/uL} Normal 0.7-3.1 [facility] Work Phone: Comment on above: PATIENT NOT FASTINGP ERFORMED BY: CB [facility] [id number] [address]Dublin [place] [id number] Lymphocytes (Bld) [#/Vol] 2.3 10*3/uL Normal 0.7-3.1 [facility]; [facility] Work Phone: Comment on above: PATIENT NOT FASTINGP ERFORMED BY: [facility] [id number] [address]Dublin [place] [id number] Lymphocytes/100 WBC (Bld) 30 % Normal [facility] Work Phone: Comment on above: PATIENT NOT FASTINGP ERFORMED BY: [facility] [id number] [address]Dublin [place] [id number] MCH (RBC) [Entitic mass] 28.4 pg Normal 26.6-33.0 [facility] Work Phone: Comment on above: PATIENT NOT FASTINGP ERFORMED BY: [facility] Ucytgt1343 [address]Dublin [place] [id number] MCHC (RBC) [Mass/Vol] 33.1 g/dL Normal 31.5-35.7 [facility] Work Phone: Comment on above: PATIENT NOT FASTINGP ERFORMED BY: CB [facility] [id number] [address]Dublin [place] [id number] MCV (RBC) [Entitic vol] 86 fL Normal 79-97 [facility] Work Phone: Comment on above: PATIENT NOT FASTINGP ERFORMED BY: CB [facility] [id number] [address]Dublin [place] [id number] Monocytes (Bld) [#/Vol] 0.5 {x10E3/uL} Normal 0.1-0.9 [facility] Work Phone: Comment on above: PATIENT NOT FASTINGP ERFORMED BY: CB [facility] [id number] [address]Dublin [place] [id number] Monocytes (Bld) [#/Vol] 0.5 10*3/uL Normal 0.1-0.9 [facility]; [facility] Work Phone: Comment on above: PATIENT NOT FASTINGP ERFORMED BY: CB [facility] Siufms2046 [address]Dublin [place] [id number] Monocytes/100 WBC (Bld) 7 % Normal [facility] Work Phone: Comment on above: PATIENT NOT FASTINGP ERFORMED BY: CB [facility] Mypgqc0838 [address]Dublin [place] [id number] Neutrophils (Bld) [#/Vol] 4.4 {x10E3/uL} Normal 1.4-7.0 [facility] Work Phone: Comment on above: PATIENT NOT FASTINGP ERFORMED BY: CB [facility] [id number] [address]Dublin [place] [id number] Neutrophils (Bld) [#/Vol] 4.4 10*3/uL Normal 1.4-7.0 [facility]; [facility] Work Phone: Comment on above: PATIENT NOT FASTINGP ERFORMED BY: CB [facility] Yrwrts1138 [address]Dublin [place] [id number] Neutrophils/100 WBC (Bld) 57 % Normal [facility] Work Phone: Comment on above: PATIENT NOT FASTINGP ERFORMED BY: CB [facility] Pwrcoj9603 [address]Dublin [place] [id number] Platelets (Bld) [#/Vol] 252 {x10E3/uL} Normal 150-450 [facility] Work Phone: Comment on above: PATIENT NOT FASTINGP ERFORMED BY: CB [facility] Jujkeh6124 [address]Dublin [place] [id number] Platelets (Bld) [#/Vol] 252 10*3/uL Normal 150-450 [facility]; [facility] Work Phone: Comment on above: PATIENT NOT FASTINGP ERFORMED BY: BILLIE [facility] [id number] [facility] [id number] RBC (Bld) [#/Vol] 5.67 {x10E6/uL} Normal 4.14-5.80 [facility] Work Phone: Comment on above: PATIENT NOT FASTINGP ERFORMED BY: CB [facility] Gqxhak[address] [facility] [id number] RBC (Bld) [#/Vol] 5.67 10*6/uL Normal 4.14-5.80 [facility] Medicine; [facility] Work Phone: Comment on above: PATIENT NOT FASTINGP ERFORMED BY: [facility] [id number] [facility] [id number] WBC (Bld) [#/Vol] 7.5 {x10E3/uL} Normal 3.4-10.8 [facility] Internal Medicine Work Phone: Comment on above: PATIENT NOT FASTINGP ERFORMED BY: [facility] [id number] [facility] [id number] WBC (Bld) [#/Vol] 7.5 10*3/uL Normal 3.4-10.8 [facility]; [facility] Work Phone: Comment on above: PATIENT NOT FASTINGP ERFORMED BY: [facility] Helahe0960 [facility] [id number] Influenza A&B Viral Culture ([id number])Ordered By: Director Medical Science on 04-06-2019 FLUV identified Org specific cx Nom (Unsp spec) FLUABN Normal [facility] Work Phone: Comment on above: Negative:No Influenz a A or B detected. PATIENT NOT FASTINGP ERFORMED BY: BILLIE [facility] [id number] [facility] [id number] Information: SRC:NL Metabolic Panel, Comprehensi ve ([id number])Ordered By: Director Medical Science on 04-06-2019 Albumin [Mass/Vol] 4.3 g/dL Normal 3.5-5.5 [facility] Work Phone: Comment on above: PATIENT NOT FASTINGP ERFORMED BY: CB [facility] Pqnddq6027 [address]Dublin [place] [id number] Albumin/Globulin [Mass ratio] 1.2 {ratio} Normal 1.2-2.2 [facility] Work Phone: Comment on above: PATIENT NOT FASTINGP ERFORMED BY: CB [facility] [id number] [address]Dublin [place] [id number] ALP [Catalytic activity/Vol] 118 [iU]/L Abnormal 39-117 [facility] Work Phone: Comment on above: PATIENT NOT FASTINGP ERFORMED BY: CB [facility] [id number] [address]Dublin [place] [id number] ALP [Catalytic activity/Vol] 118 U/L Abnormal 39-117 [facility]; [facility] Work Phone: Comment on above: PATIENT NOT FASTINGP ERFORMED BY: CB [facility] Kfbkpf2803 [address]Dublin [place] [id number] ALT [Catalytic activity/Vol] 48 [iU]/L Abnormal 0-44 [facility] Work Phone: Comment on above: PATIENT NOT FASTINGP ERFORMED BY: CB [facility] [id number] [address]Dublin [place] [id number] ALT [Catalytic activity/Vol] 48 U/L Abnormal 0-44 [facility]; [facility] Work Phone: Comment on above: PATIENT NOT FASTINGP ERFORMED BY: CB [facility] Blrlrm9770 [address]Dublin [place] [id number] AST [Catalytic activity/Vol] 34 [iU]/L Normal 0-40 [facility] Work Phone: Comment on above: PATIENT NOT FASTINGP ERFORMED BY: CB [facility] Iqbdvi1878 [address]Dublin [place] [id number] AST [Catalytic activity/Vol] 34 U/L Normal 0-40 [facility]; [facility] Work Phone: Comment on above: PATIENT NOT FASTINGP ERFORMED BY: CB [facility] Miupqc8077 [address]Dublin [place] [id number] Bilirubin [Mass/Vol] 0.3 mg/dL Normal 0.0-1.2 Comp rehensive [facility] Work Phone: Comment on above: PATIENT NOT FASTINGP ERFORMED BY: CB [facility] Svjcds8530 [address]Dublin [place] [id number] Calcium [Mass/Vol] 9.4 mg/dL Normal 8.7-10.2 [facility] Medicine Work Phone: Comment on above: PATIENT NOT FASTINGP ERFORMED BY: CB [facility] Gyazuy7177 [address]Dublin [place] [id number] Chloride [Moles/Vol] 107 mmol/L Abnormal 96-106 [facility] Work Phone: Comment on above: PATIENT NOT FASTINGP ERFORMED BY: CB [facility] Yzumvx5671 [address]Dublin [place] [id number] CO2 [Moles/Vol] 22 mmol/L Normal 20-29 Comprehen [facility] Work Phone: Comment on above: PATIENT NOT FASTINGP ERFORMED BY: CB [facility] Fhyezg1845 [address]Dublin [place] [id number] Creatinine [Mass/Vol] 1.10 mg/dL Normal 0.76-1.27 [facility] Work Phone: Comment on above: PATIENT NOT FASTINGP ERFORMED BY: CB [facility] Dwwxrk9427 [address]Dublin [place] [id number] GFR/1.73 sq M predicted among blacks CKD-EPI (S/P/Bld) [Vol rate/Area] 89 mL/min/1.73 Normal [facility] Work Phone: Comment on above: PATIENT NOT FASTINGP ERFORMED BY: CB [facility] Jlpuxp0654 [address] [place] [id number] GFR/1.73 sq M predicted among non-blacks CKD-EPI (S/P/Bld) [Vol rate/Area] 77 mL/min/1.73 Normal [facility] Work Phone: Comment on above: PATIENT NOT FASTINGP ERFORMED BY: BILLIE [facility] [id number] [address]Dublin [place] [id number] Globulin (S) [Mass/Vol] 3.5 g/dL Normal 1.5-4.5 [facility] Work Phone: Comment on above: PATIENT NOT FASTINGP ERFORMED BY: CB [facility] Hdhgba5542 [address]Dublin [place] [id number] Glucose [Mass/Vol] 90 mg/dL Normal 65-99 [facility] Internal Medicine Work Phone: Comment on above: PATIENT NOT FASTINGP ERFORMED BY: CB [facility] Mznrne2923 [address]Dublin [place] [id number] Potassium [Moles/Vol] 5.1 mmol/L Normal 3.5-5.2 [facility] Work Phone: Comment on above: PATIENT NOT FASTINGP ERFORMED BY: CB [facility] Lmpjof7372 [address]Dublin [place] [id number] Protein [Mass/Vol] 7.8 g/dL Normal 6.0-8.5 [facility] Work Phone: Comment on above: PATIENT NOT FASTINGP ERFORMED BY: CB [facility] Ybowpj4567 [address]Dublin [place] [id number] Sodium [Moles/Vol] 146 mmol/L Abnormal 134-144 [facility] Work Phone: Comment on above: PATIENT NOT FASTINGP ERFORMED BY: CB [facility] Yhmhwe9593 [address]Dublin [place] [id number] Urea nitrogen [Mass/Vol] 11 mg/dL Normal 6-24 [facility] Work Phone: Comment on above: PATIENT NOT FASTINGP ERFORMED BY: CB [facility] Jlsyvn8744 [address] [place] [id number] Urea nitrogen/Creatinine [Mass ratio] 10 mg/mg Normal 9-20 [facility] Work Phone: Comment on above: PATIENT NOT FASTINGP ERFORMED BY: [facility] [id number] [facility] [id number] Rapid Flu (87021 x 2)on 03-26 FLUAV Ag IA Ql (Throat) Negative Normal [facility] Work Phone: FLUAV Ag IA Ql (Throat) Negative Normal [facility]; [facility] Work Phone: Urinalysis, Office ([id number])on 02-23-2015 Bilirubin Ql (U) Negative Normal Comprehe nsive [facility] Medicine Work Phone: Bilirubin Ql (U) Negative Normal Comprehe nsive [facility]; [facility] Work Phone: Glucose Test strip (U) [Mass/Vol] Negative Normal [facility] Work Phone: Glucose Test strip (U) [Mass/Vol] Negative Normal [facility]; [facility] Work Phone: Hemoglobin Ql (U) Negative Normal Compreh ensive [facility] Work Phone: Hemoglobin Ql (U) Negative Normal Compreh ensive [facility]; [facility] Work Phone: Ketones Ql (U) Negative Normal Comprehens nini [facility] Work Phone: Ketones Ql (U) Negative Normal Comprehens nini [facility]; [facility] Work Phone: Leukocyte esterase Test strip Ql (U) Negative Normal [facility] Work Phone: Leukocyte esterase Test strip Ql (U) Negative Normal [facility]; [facility] Work Phone: Nitrite Ql (U) Negative Normal Comprehens nini [facility] Work Phone: Nitrite Ql (U) Negative Normal Comprehens n[facility]; [facility] Work Phone: pH (U) 6 [pH] Abnormal [facility] Work Phone: Protein Ql (U) Negative Normal Comprehens nini [facility] Work Phone: Protein Ql (U) Negative Normal Comprehens n[facility]; [facility] Work Phone: Specific gravity (U) [Rel density] 1.020 1 Normal [facility] Work Phone: Urobilinogen (24H U) [Mass/Time] Normal Normal [facility] Work Phone: Vital Signs Date Time Vital Sign Value Performing Clinician Facility 12-16-2022 15:42-0400 Body height 177.8 cm Jamila Costa CENTRIFUGE OPERATOR [facility]; [facility] Work Phone: 12-16-2022 15:42-0400 Body mass index (BMI) [Ratio] 49.81 kg/m2 Jamila Slarb CENTRIFUGE OPERATOR [facility]; [facility] Work Phone: 12-16-2022 15:42-0400 Body surface area Derived from formula 2.64 m2 Jamila Slarb CENTRIFUGE OPERATOR [facility]; [facility] Work Phone: 12-16-2022 15:42-0400 Body temperature 97.9 [degF] Jamila Slarb CENTRIFUGE OPERATOR [facility]; [facility] Work Phone: Comment on above: Method: Temporal 12-16-2022 15:42-0400 Body weight 157.46 kg Jamila Slarb CENTRIFUGE OPERATOR [facility]; [facility] Work Phone: 12-16-2022 15:42-0400 Diastolic blood pressure 82 mm[Hg] Jamila Slarb CENTRIFUGE OPERATOR [facility]; [facility] Work Phone: Comment on above: Patient Position: Sitting; Cuff Location : Left Arm; Cuff Size: Standard 12-16-2022 15:42-0400 Heart rate 118 /min Jamila Slarb CENTRIFUGE OPERATOR [facility]; [facility] Work Phone: Comment on above: Pattern: Regular 12-16-2022 15:42-0400 Respiratory rate 16 /min Jamila Slarb CENTRIFUGE OPERATOR [facility]; [facility] Work Phone: Comment on above: Pattern: Unlabored 12-16-2022 15:42-0400 SaO2% (BldA) [Mass fraction] 99 % Jamila Costa SORAIDA [facility]; [facility] Work Phone: Comment on above: Room air 12-16-2022 15:42-0400 Systolic blood pressure 142 mm[Hg] Jamila Costa SORAIDA [facility]; [facility] Work Phone: Comment on above: Patient Position: Sitting; Cuff Location : Left Arm; Cuff Size: Standard 07-12-2022 07:16-0500 Body height 177.8 cm Alice Pitts MA [facility]; [facility] Work Phone: 07-12-2022 07:16-0500 Body mass index (BMI) [Ratio] 49.81 kg/m2 Alice Pitts MA [facility]; [facility] Work Phone: 07-12-2022 07:16-0500 Body surface area Derived from formula 2.64 m2 Alice Pitts MA [facility]; [facility] Work Phone: 07-12-2022 07:16-0500 Body weight 157.46 kg Alice Pitts MA [facility]; [facility] Work Phone: 03-14-2022 10:46-0400 Body height 177.8 cm Edie Herb QUIGLEY [facility]; [facility] Work Phone: Comment on above: virtual, none reported 03-14-2022 10:46-0400 Body mass index (BMI) [Ratio] 49.81 kg/m2 Edie Herb QUIGLEY [facility]; [facility] Work Phone: Comment on above: virtual, none reported 03-14-2022 10:46-0400 Body surface area Derived from formula 2.64 m2 Ediethomas Estevez SORAIDA [facility]; [facility] Work Phone: Comment on above: virtual, none reported 03-14-2022 10:46-0400 Body weight 157.46 kg Ediethomas Estevez SORAIDA [facility]; [facility] Work Phone: Comment on above: virtual, none reported 01-08-2022 15:23-0400 Diastolic blood pressure 100 mm[Hg] Alyce Garcias MANAGER CRITICAL CARE Work Phone: [facility]; [facility] Work Phone: Comment on above: Patient Position: Sitting; Cuff Location : Left Arm; Cuff Size: Large manually taken, then took w/ patient's machine (arm cuff L) and was 166/110 so seems to be accurate 01-08-2022 15:23-0400 Systolic blood pressure 166 mm[Hg] Alyce Garcias MANAGER CRITICAL CARE Work Phone: [facility]; [facility] Work Phone: Comment on above: Patient Position: Sitting; Cuff Location : Left Arm; Cuff Size: Large manually taken, then took w/ patient's machine (arm cuff L) and was 166/110 so seems to be accurate 01-08-2022 14:34-0400 Body height 177.8 cm [facility]; [facility] Work Phone: 01-08-2022 14:34-0400 Body mass index (BMI) [Ratio] 49.81 kg/m2 [facility]; [facility] Work Phone: 01-08-2022 14:34-0400 Body surface area Derived from formula 2.64 m2 [facility]; [facility] Work Phone: 01-08-2022 14:34-0400 Body temperature 96.9 [degF] [facility] Comprehensiv e Internal Medicine; [facility] Work Phone: 01-08-2022 14:34-0400 Body weight 157.46 kg [facility]; [facility] Work Phone: 01-08-2022 14:34-0400 Heart rate 75 /min [facility]; [facility] Work Phone: Comment on above: Pattern: Regular 01-08-2022 14:34-0400 Respiratory rate 18 /min [facility] Comprehensiv e [facility]; [facility] Work Phone: Comment on above: Pattern: Unlabored 01-08-2022 14:34-0400 SaO2% (BldA) [Mass fraction] 97 % Sarah Mays CMA [facility]; [facility] Work Phone: Comment on above: Room air 12-31-2021 14:33-0400 Body height 177.8 cm Jamila Slarb CENTRIFUGE OPERATOR [facility]; [facility] Work Phone: 12-31-2021 14:33-0400 Body mass index (BMI) [Ratio] 50.08 kg/m2 Jamila Slarb CENTRIFUGE OPERATOR [facility]; [facility] Work Phone: 12-31-2021 14:33-0400 Body surface area Derived from formula 2.64 m2 Jamila Slarb CENTRIFUGE OPERATOR [facility]; [facility] Work Phone: 12-31-2021 14:33-0400 Body temperature 97.2 [degF] Jamila Slarb CENTRIFUGE OPERATOR [facility]; [facility] Work Phone: 12-31-2021 14:33-0400 Body weight 158.31 kg Jamila Slarb CENTRIFUGE OPERATOR [facility]; [facility] Work Phone: 12-31-2021 14:33-0400 Diastolic blood pressure 98 mm[Hg] Jamila Slarb CENTRIFUGE OPERATOR [facility]; [facility] Work Phone: Comment on above: Patient Position: Sitting; Cuff Location : Left Arm; Cuff Size: Standard 12-31-2021 14:33-0400 Heart rate 98 /min Jamila Slarb CENTRIFUGE OPERATOR [facility]; [facility] Work Phone: Comment on above: Pattern: Regular 12-31-2021 14:33-0400 Respiratory rate 17 /min Jamila Slarb CENTRIFUGE OPERATOR [facility]; [facility] Work Phone: Comment on above: Pattern: Unlabored 12-31-2021 14:33-0400 SaO2% (BldA) [Mass fraction] 99 % Jamila Slarb CENTRIFUGE OPERATOR [facility]; [facility] Work Phone: Comment on above: Room air 12-31-2021 14:33-0400 Systolic blood pressure 178 mm[Hg] Jamila Costa LPN [facility]; [facility] Work Phone: Comment on above: Patient Position: Sitting; Cuff Location : Left Arm; Cuff Size: Standard 06-19-2021 09:31-0500 Body height 177.8 cm Sabra Norman MD Work Phone: [facility]; [facility] Work Phone: 06-19-2021 09:31-0500 Body mass index (BMI) [Ratio] 46.63 kg/m2 Sabra Norman MD Work Phone: [facility]; [facility] Work Phone: 06-19-2021 09:31-0500 Body surface area Derived from formula 2.57 m2 Sabra Norman MD Work Phone: [facility]; [facility] Work Phone: 06-19-2021 09:31-0500 Body weight 147.42 kg Sabra Norman MD Work Phone: [facility]; [facility] Work Phone: 01-05-2021 08:32-0400 Body height 177.8 cm Radha Gravius [facility]; [facility] Work Phone: Comment on above: no vs taken as this is phone encounter d ue to covid 01-05-2021 08:32-0400 Body mass index (BMI) [Ratio] 50.94 kg/m2 Radha Gravius [facility]; [facility] Work Phone: Comment on above: no vs taken as this is phone encounter d ue to covid 01-05-2021 08:32-0400 Body surface area Derived from formula 2.66 m2 Radha Gravius [facility]; [facility] Work Phone: Comment on above: no vs taken as this is phone encounter d ue to covid 01-05-2021 08:32-0400 Body weight 161.05 kg Radha Mejia [facility]; [facility] Work Phone: Comment on above: no vs taken as this is phone encounter d ue to covid 05-25-2020 09:31-0500 BMI (Body Mass Index) 50.94 kg/m2 [facility]; [facility] Work Phone: 05-25-2020 09:31-0500 Body Temperature 98.1 [degF] [facility]; [facility] Work Phone: Comment on above: Method: Thermal Scan 05-25-2020 09:31-0500 Body weight 161.05 kg [facility]; [facility] Work Phone: 05-25-2020 09:31-0500 BSA (Body Surface Area) 2.66 m2 [facility]; [facility] Work Phone: 05-25-2020 09:31-0500 Height 177.8 cm [facility]; [facility] Work Phone: 03-13-2020 10:35-0400 BMI (Body Mass Index) 50.94 kg/m2 [facility] Work Phone: 03-13-2020 10:35-0400 Body weight 161.05 kg Sandy [facility] Work Phone: 03-13-2020 10:35-0400 BSA (Body Surface Area) 2.66 m2 Sandy [facility] Work Phone: 03-13-2020 10:35-0400 Height 177.8 cm Sandy [facility] Work Phone: 09-13-2019 13:09-0400 BMI (Body Mass Index) 50.94 kg/m2 Paula Hernandez RN [facility] Work Phone: Comment on above: Vital signs not obtained d/t call or vir tual visit 09-13-2019 13:09-0400 Body weight 161.05 kg Paula Hernandez RN [facility] Work Phone: Comment on above: Vital signs not obtained d/t call or vir tual visit 09-13-2019 13:09-0400 BSA (Body Surface Area) 2.66 m2 Paula Hernandez RN [facility] Work Phone: Comment on above: Vital signs not obtained d/t call or vir tual visit 09-13-2019 13:09-0400 Height 177.8 cm Paula Hernandez RN [facility] Work Phone: Comment on above: Vital signs not obtained d/t call or vir tual visit 04-06-2019 08:56-0500 BMI (Body Mass Index) 50.94 kg/m2 Jay Reed LPN [facility] Work Phone: Comment on above: standing 144/84 04-06-2019 08:56-0500 Body Temperature 97.8 [degF] Jay Reed CENTRIFUGE OPERATOR [facility] Internal Medicine Work Phone: Comment on above: Method: Temporal standing 144/84 04-06-2019 08:56-0500 Body weight 161.05 kg Jay Reed LPN [facility] Internal Medicine Work Phone: Comment on above: standing 144/84 04-06-2019 08:56-0500 BP Diastolic 82 mm[Hg] Jay Reed LPN [facility] Internal Medicine Work Phone: Comment on above: Patient Position: Sitting; Cuff Location : Left Arm; Cuff Size: Standard standing 144/84 04-06-2019 08:56-0500 BP Systolic 142 mm[Hg] Jay Reed LPN [facility] Internal Medicine Work Phone: Comment on above: Patient Position: Sitting; Cuff Location : Left Arm; Cuff Size: Standard standing 144/84 04-06-2019 08:56-0500 BSA (Body Surface Area) 2.66 m2 Jay Reed LPN [facility] Internal Medicine Work Phone: Comment on above: standing 144/84 04-06-2019 08:56-0500 Height 177.8 cm Jay Reed [facility] Internal Medicine Work Phone: Comment on above: standing 144/84 04-06-2019 08:56-0500 Pulse (Heart Rate) 122 /min Jay Reed LPN Comprehensiv e Internal Medicine Work Phone: Comment on above: Pattern: Regular standing 144/84 04-06-2019 08:56-0500 Pulse Oximetry 97 % Wendie Dawn [facility] Work Phone: Comment on above: Room air standing 144/84 04-06-2019 08:56-0500 Respiratory Rate 16 /min Jay Reed LPN [facility] Work Phone: Comment on above: Pattern: Unlabored standing 144/84 04-06-2019 08:56-0500 SaO2% (BldA) [Mass fraction] 97 % Jay Reed LPN [facility]; [facility] Work Phone: Comment on above: Room air standing 144/84 07-25-2016 07:25-0500 BMI (Body Mass Index) 50.51 kg/m2 Paula Hernandez RN [facility] Work Phone: 07-25-2016 07:25-0500 Body weight 159.67 kg Paula Hernandez RN [facility] Work Phone: 07-25-2016 07:25-0500 BP Diastolic 82 mm[Hg] Paula Hernandez RN [facility] Work Phone: Comment on above: Patient Position: Sitting; Cuff Location : Left Arm; Cuff Size: Large 07-25-2016 07:25-0500 BP Systolic 138 mm[Hg] Paula Hernandez RN [facility] Work Phone: Comment on above: Patient Position: Sitting; Cuff Location : Left Arm; Cuff Size: Large 07-25-2016 07:25-0500 BSA (Body Surface Area) 2.65 m2 Paula Hernandez RN [facility] Work Phone: 07-25-2016 07:25-0500 Height 177.8 cm Paula Hernandez RN [facility] Work Phone: 07-25-2016 07:25-0500 Pulse (Heart Rate) 83 /min Paula Hernandez RN [facility] Work Phone: Comment on above: Pattern: Regular 07-25-2016 07:25-0500 Pulse Oximetry 96 % Wendie Dawn [facility] Work Phone: Comment on above: Room air 07-25-2016 07:25-0500 Respiratory Rate 18 /min Paula Hernandez RN [facility] Work Phone: Comment on above: Pattern: Unlabored 07-25-2016 07:25-0500 SaO2% (BldA) [Mass fraction] 96 % Paula Hernandez RN [facility]; [facility] Work Phone: Comment on above: Room air 03-16-2015 09:43-0400 BMI (Body Mass Index) 46.13 kg/m2 Paula Hernandez RN [facility] Work Phone: 03-16-2015 09:43-0400 Body weight 145.83 kg Paula Hernandez RN [facility] Work Phone: 03-16-2015 09:43-0400 BP Diastolic 82 mm[Hg] Paula Hernandez RN [facility] Work Phone: Comment on above: Patient Position: Sitting; Cuff Location : Left Arm; Cuff Size: Large 03-16-2015 09:43-0400 BP Systolic 122 mm[Hg] Paula Hernandez RN [facility] Work Phone: Comment on above: Patient Position: Sitting; Cuff Location : Left Arm; Cuff Size: Large 03-16-2015 09:43-0400 BSA (Body Surface Area) 2.55 m2 Paula Hernandez RN [facility] Work Phone: 03-16-2015 09:43-0400 Height 177.8 cm Paula Hernandez RN [facility] Work Phone: 03-16-2015 09:43-0400 Pulse (Heart Rate) 79 /min Paula Hernandez RN [facility] Work Phone: Comment on above: Pattern: Regular 03-16-2015 09:43-0400 Pulse Oximetry 98 % Wendie Dawn [facility] Work Phone: Comment on above: Room air 03-16-2015 09:43-0400 Respiratory Rate 18 /min Paula Hernandez RN [facility] Work Phone: Comment on above: Pattern: Unlabored 03-16-2015 09:43-0400 SaO2% (BldA) [Mass fraction] 98 % Paula Hernandez RN [facility]; [facility] Work Phone: Comment on above: Room air 02-23-2015 07:35-0400 Body Temperature 97.6 [degF] Wendie Dawn [facility] Work Phone: Comment on above: Method: Temporal 02-23-2015 07:35-0400 Body weight 144.7 kg Wendie Dawn [facility] Work Phone: 02-23-2015 07:35-0400 BP Diastolic 78 mm[Hg] Wendie Dawn [facility] Work Phone: Comment on above: Patient Position: Sitting; Cuff Location : Left Arm; Cuff Size: Standard 02-23-2015 07:35-0400 BP Systolic 142 mm[Hg] Wendie Dawn [facility] Work Phone: Comment on above: Patient Position: Sitting; Cuff Location : Left Arm; Cuff Size: Standard 02-23-2015 07:35-0400 Pulse (Heart Rate) 80 /min Wendie Dawn [facility] Work Phone: Comment on above: Pattern: Regular 02-23-2015 07:35-0400 Pulse Oximetry 98 % Wendie Dawn [facility] Work Phone: Comment on above: Room air 02-23-2015 07:35-0400 Respiratory Rate 16 /min Wendie Dawn [facility] Work Phone: Comment on above: Pattern: Unlabored 02-23-2015 07:35-0400 SaO2% (BldA) [Mass fraction] 98 % Wendie Dawn DO Work Phone: [facility]; [facility] Work Phone: Comment on above: Room air Encounters Encounter Date Encounter Type Care Provider Facility Start: 04-06-2025 ambulatory [place]: 08-24-2024 End: 08-24-2024 ambulatory Wendie López Facility:[facility] Start: 04-06-2024 End: 04-06-2024 ambulatory Jayro Harrison Facility:[facility] Start: 12-27-2022 End: 12-27-2022 ambulatory [facility] Work Phone: Start: 12-27-2022 End: 12-27-2022 Patient encounter procedure [facility]-Cat Scan, [facility] Work Phone: Start: 12-17-2022 End: 12-17-2022 Phone Encounter Wendie López DO Work Phone: [facility] Start: 12-16-2022 End: 12-16-2022 Office outpatient visit 15 minutes Wendie López DO Work Phone: [facility] Start: 07-12-2022 End: 07-12-2022 Office outpatient visit 15 minutes Wendie López DO Work Phone: [facility] Start: 07-11-2022 ambulatory Wendie López DO [facility] Start: 03-14-2022 End: 03-14-2022 Office outpatient visit 10 minutes Wendie López DO Work Phone: [facility] Start: 01-08-2022 End: 01-08-2022 Office outpatient visit 15 minutes Wendie López DO Work Phone: [facility] Start: 12-31-2021 End: 01-02-2022 Office outpatient visit 25 minutes Wendie López DO Work Phone: [facility] Start: 12-31-2021 Review Wendie Fearo n DO Work Phone: [facility] Start: 06-19-2021 End: 06-19-2021 Office outpatient visit 40 minutes Wendie López DO Work Phone: [facility] Start: 01-05-2021 End: 01-05-2021 Office outpatient visit 15 minutes Wendie López DO Work Phone: [facility] Start: 05-29-2020 End: 05-29-2020 Annotation/Addendum Wendie López [facility] Start: 05-25-2020 End: 05-25-2020 Office outpatient visit 15 minutes Wendie Dawn [facility] Start: 03-13-2020 End: 03-13-2020 Office outpatient visit 15 minutes Wendie Dawn [facility] Start: 09-13-2019 End: 09-13-2019 Office outpatient visit 15 minutes Wendie Dawn [facility] Start: 04-07-2019 End: 04-07-2019 Lab Order Wendie Dawn [facility] Start: 04-07-2019 Review Wendie Dawn [facility] Start: 04-06-2019 End: 04-06-2019 Office outpatient visit 15 minutes Wendiekarla Dawn [facility] Start: 07-25-2016 End: 07-25-2016 Office outpatient visit 15 minutes Wendie Dawn [facility] Start: 03-16-2015 End: 03-16-2015 Office outpatient visit 15 minutes Wendiekarla Dawn [facility] Start: 02-23-2015 End: 02-23-2015 Office outpatient new 30 minutes Wendiekarla Dawn [facility] Internal Medicine Procedures Date Procedure Procedure Detail Performing Clinician Start: 12-27-2022 Computed tomography of abdomen and pelvis with contrast Start: 09-02-2022 End: 09-02-2022 Urgent Care Visit Report Procedure Note: See Note; NOTES: [facility] [address] [place] [address] OFFICE VISIT Date of Service: 09/02/22 MR#: [id number] Acct: [id number] Name: LB CUEVA Rep #: [id number] : 1970 Provider: INDERJIT Leroy Age/Sex: 52/M Location[place] [facility] Status: Signed Intake Vital Signs 12/30/19 09:30 Height 5 ft 10 in Intake Visit Reasons: PE DOT 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 Please see corresponding scanned documents with today's date. Office Procedures [facility] Billing Sheet Testing DOT Physical Exam: Yes Drug Screen Collection Only: Yes Coding Level of Care Code No Charge Diagnoses Encounter for examination required by Department of Transportation (DOT) Z02.89 CPT Codes Testing - DOT Physical Exam: Yes (DOTPE) Testing - Drug Screen Collection Only: Yes (DSCOL) Assessment and Plan Assessment and Plan (1) Encounter for examination required by Department of Transportation (DOT): Status: Acute 09/02/22 1415 <Electronically signed by Sidney JANSEN> Date Sidney JANSEN Cosigner Signature: Date (if applicable) CC: Wendie Dawn DO Work Phone: Start: 12-30-2019 End: 12-30-2019 Emergency Department Summary Comments: See Note; NOTES: [facility] Medical Records Department [address] [place] [id number] Emergency Department Summary 12/30/19 MR#: [id number] Acct: [id number] Name: LB CUEVA Rep #: [id number] : 1970 49 From: López Thomas MD PCP: Dr. Wendie Dawn DO Status:REG ER History of Present Illness Chief Complaint: Dizziness Informant: Patient Onset: Today Context: Sudden Onset Timing: Intermittent Current Severity: Mild Maximum Severity: Severe Narrative: The patient is a 49-year-old male who is otherwise healthy on no daily medications that presents to the emergency department after near syncopal episode. Patient states he was driving. He states he began to get lightheaded. He describes tunnel vision. He states he felt like he was going to pass out. He states with turning his head, it seemed to make the symptoms worse, but he does not describe a sensation of motion. He states that the sensation has passed and he still feels just mildly lightheaded. He states he is never had anything like this before. He denies any fevers or chills. He denies any vision change or trouble speaking. He has had no chest pain, weight loss, or night sweats. Prior similar symptoms: No Recent Illness/Hospitalization: No Past Medical History - Allergies and Home Meds Allergies/Adverse Reactions: Allergies No Known Allergies Allergy (Verified 12/30/19 09:32) Primary Care Physician: Wendie Dawn DO [Primary Care Provider] - Prior records reviewed: Yes Past Medical History: None Surgical History: no surgical history Smoking Status: Current some day smoker Review of Systems General: Denies: Chills, Fever, Sweats Eyes: Denies: Visual changes - bilaterally, Diplopia ENT: Denies: Rhinorrhea, Sore throat Cardiovascular: Denies: Chest pain, Palpitations Respiratory: Denies: Dyspnea, Cough, Dyspnea on exertion Gastrointestinal: Denies: Abdominal pain, Nausea, Vomiting, Diarrhea, Melena, Hematochezia Genitourinary: Denies: Dysuria, Hematuria, Frequency Musculoskeletal: Denies: Back pain, Extremity Pain Skin: Denies: Rash, Wounds Neurological: Denies: Headache, Weakness, Numbness Physical Exam Vital Signs/Narrative: Vital Signs Temp Pulse Resp BP Pulse Ox 12/30/19 09:30 97.4 F L 89 16 184/97 H 96 Inital Vital Signs reviewed: Yes General: Well nourished, Well developed, No Acute Distress Head: Normocephalic, Atraumatic Eyes: Perrl, EOMI ENT: Moist mucous membranes, No rhinorrhea Neck: Supple, Nontender Cardiovascular: Regular rate, Regular rhythm, No murmurs Respiratory: No distress, CTA bilaterally, Chest nontender Abdomen: Soft, Nontender, Nondistended, Normal bowel sounds Back: Nontender, Normal Inspection Extremities: Nontender, No edema Skin: Normal color, No rash Neurological: Alert, Oriented x3, Cranial nerves II-XII grossly intact, Normal Strength, Normal Sensation Psychological: Normal affect, Normal Mood Diagnostic/Tx/Re-eval Clinical Impression(s) from Imaging Studies Brain CT 12/30/19 09:43 IMPRESSION: Normal unenhanced CT scan of the brain. Electronically Signed: Misael Juan, at 10:52 EDT , Service support , Laboratory Last Values WBC 8.2 K/mm3 (4.4-11.0) 12/30/19 10:15 RBC 5.72 M/mm3 (4.6-6.2) 12/30/19 10:15 Hgb 16.1 g/dL (13.0-16.5) 12/30/19 10:15 Hct 51.3 % (40-54) 12/30/19 10:15 MCV 89.7 fL (80-94) 12/30/19 10:15 MCH 28.1 pg (27.0-32.0) 12/30/19 10:15 MCHC 31.4 g/dL (32-36) L 12/30/19 10:15 RDW Std Deviation 43.5 fl (35.1-43.9) 12/30/19 10:15 RDW Coeff of Meena 13.3 % (11.6-14.6) 12/30/19 10:15 Plt Count 235 K/mm3 (150-450) 12/30/19 10:15 MPV 10.9 fl (6.2-12.0) 12/30/19 10:15 Immature Gran % (Auto) 1.000 % (0.0-0.9) H 12/30/19 10:15 Neut % (Auto) 61.6 % (47-70) 12/30/19 10:15 Lymph % (Auto) 25.3 % (19-41) 12/30/19 10:15 Owsley % (Auto) 8.4 % (0-10) 12/30/19 10:15 Eos % (Auto) 2.8 % (0-5) 12/30/19 10:15 Baso % (Auto) 0.9 % (0-1) 12/30/19 10:15 Absolute Neuts (auto) 5.1 X10 3/uL (2.0-7.7) 12/30/19 10:15 Absolute Lymphs (auto) 2.08 X10 3/uL (0.83-4.51) 12/30/19 10:15 Nucleated RBC % 0 % (0-5) 12/30/19 10:15 Sodium 138 mmol/L (136-145) 12/30/19 10:15 Potassium 4.6 mmol/L (3.5-5.1) 12/30/19 10:15 Chloride 105 mmol/L (98-107) 12/30/19 10:15 Carbon Dioxide 28.0 mmol/L (21.0-32.0) 12/30/19 10:15 Anion Gap 5 (5-15) 12/30/19 10:15 BUN 14 mg/dL (7-18) 12/30/19 10:15 Creatinine 1.17 mg/dL (0.70-1.30) 12/30/19 10:15 Estim Creat Clear Calc 77.12 ml/min 12/30/19 10:15 Est GFR (MDRD) Af Amer 84 mL/min (>60) 12/30/19 10:15 Est GFR (MDRD) Non-Af 70 mL/min (>60) 12/30/19 10:15 BUN/Creatinine Ratio 12.0 RATIO (10-20) 12/30/19 10:15 Glucose 88 mg/dL (74-106) 12/30/19 10:15 Calcium 9.3 mg/dL (8.5-10.1) 12/30/19 10:15 Total Bilirubin 0.70 mg/dL (0.20-1.00) 12/30/19 10:15 AST 40 U/L (15-37) H 12/30/19 10:15 ALT 58 U/L (16-61) 12/30/19 10:15 Alkaline Phosphatase 119 U/L (45-117) H 12/30/19 10:15 Total Protein 8.8 g/dL (6.4-8.2) H 12/30/19 10:15 Albumin 4.1 g/dL (3.2-5.0) 12/30/19 10:15 Globulin 4.7 g/dL (2.2-4.2) H 12/30/19 10:15 Albumin/Globulin Ratio 0.9 RATIO (0.9-2.4) 12/30/19 10:15 - Rhythm Strip Rhythm Strip: Sinus Rhythm Rate: 80 Ectopy: None - EKG Initial EKG Interpretation: Sinus Rhythm, No Acute Injury Pattern Prior: No Prior - Medical Decision Making The patient presents after near syncopal episode. He states he was driving, moved his head, and began to have tunnel vision. He states that it was fleeting. He states now, he feels back to himself. He has a nonfocal neurologic examination. There are some components that seem more like a vertiginous issue but some that seem more vagal. I cannot re-create his symptoms with rapid alternating head movements. I did obtain metabolic work-up, EKG, and head CT. These are unremarkable. Without intervention, the patient's repeat blood pressure was 135/86. At this point, I do feel that he safe outpatient follow-up. I am going to have him follow-up with his primary care to for blood pressure recheck. He was counseled on concerning symptoms and reasons to return. He will be discharged home. Impression 1. Near syncope ED Disposition - Plan for ED Patient: Instructions: ED Near Syncope Vasovagal Referrals: Wendie Dawn DO [Primary Care Provider] - What to do if you have Problems For any increased pain, shortness of breath, bleeding, nausea or vomiting, chest pain, or any unexpected problems, contact your Primary Care Provider. Call [facility] ([phone]) or report to the closest Emergency Room. Call 911 if necessary. 12/30/19 1141 <Electronically signed by López Thomas MD> Date López Thomas MD Cosigner Signature (If Indicated): Date CC: DO Wendie Brewer Start: 12-30-2019 End: 01-03-2020 12 Lead EKG Comments: See Note; NOTES: [facility] Cardiovascular Services [address] [place] [address] 12 Lead EKG 12/30/19 0957 MR#: [id number] Acct: [id number] Name: LB CUEVA Rep #: [id number] : 1970 49 From: Polina Alva MD Attending Dr: Status: DEP ER Ordering Dr: López Thomas MD Date: 12/30/19 Location: ED Sex: M C Admitted: Test Reason : NIKOLAY Blood Pressure : / mmHG Vent. Rate : 076 BPM Atrial Rate : 076 BPM P-R Int : 160 ms QRS Dur : 098 ms QT Int : 388 ms P-R-T Axes : 022 031 034 degrees QTc Int : 436 ms Normal sinus rhythm Normal ECG Confirmed by DEBBIE MEDEROS, MANOJ ([id number]), web editor LUIS FERRARI ([id number]) on 01/03/2020 9:32:37 AM Referred By: DIZZY/WEAK Confirmed By:MATTHEW ALVA MD 01/03/20 0932 Date Polina Alva MD CC: Dr. Wendie Dawn DO; Dr. López Thomas MD Signed Wendie Dawn Start: 12-30-2019 End: 12-30-2019 Brain/Head without Contrast Comments: See Note; NOTES: [facility] Imaging Services [address] [place] [address] Brain/Head without Contrast MR#: [id number] Acct: [id number] Name: LB CUEVA Rep #: [id number] : 1970 M 49 From: Misael ham MD PCP: Dr. Wendie Dawn DO Status: PRE ER Study: Brain/Head without Contrast Date of Exam: 11/12 Exam# [id number] Ordering Dr: López Thomas MD STUDY: CT BRAIN WITHOUT CONTRAST REASON FOR EXAM: Male, 49 years old. DIZZINESS, DRIVING AND GOT LIGHT-HEADED, PT STATES THAT HE FEELS LIKE HE IS ON A ROLLER COASTER, WORSE WHEN MOVING HIS HEAD, HX-SLEEP APNEA RADIATION DOSAGE (If Supplied By Facility): CTDIvol = ( 44.99 ) mGy, DLP = ( 779.24 ) mGycm TECHNIQUE: Transaxial CT imaging of the brain was performed without administration of intravenous contrast material. Individualized dose optimization techniques were used for this CT. COMPARISON: No relevant priors. FINDINGS: Normal soft tissue structures. Normal calvarium. Normal size ventricles and extra-axial spaces for the patient''s age. Normal white matter tracts of the cerebral hemispheres. Normal basal ganglia and thalami. Normal brainstem. Normal cerebellum. There is no intracranial hemorrhage. There are no findings of an acute ischemic infarction. Normal visualized paranasal sinuses. CT/Brain/Head without Contrast IMPRESSION: Normal unenhanced CT scan of the brain. Electronically Signed: Misael Drake, at 10:52 EDT , Service support , CC: Dr. Wendie Dawn DO; Dr. López Thomas MD Design Studio Consultant: Signed Wendie Dawn Start: 04-19-2015 End: 04-19-2015 PT D/C of Non Returning Pt. Comments: See Note; NOTES: [facility] [address] [place] [address]. [address] [place] [address] Fax REHABILITATION SERVICES DISCHARGE SUMMARY MR#: [id number] Acct: [id number] Name: LB CUEVA Rep #: [id number] : 1970 45 From: Noe Garcias Referring : Wendie Dawn DO Status: PRE RCR Eval Date: Discharge Date: HP - Discharge Summary - Patient Information LB CUEVA was seen in my office for initial evaluation on 02/28/15. The following Plan of Care was established for this patient: Initial Duration: 4 Weeks - Anticipated Interventions Patient/Client Instruction: Educate patient on: Condition, Plan of Care Comments: posture and back care For the Purpose of:: To increase tolerance to activity/condition/positio n Therapeutic Exercise to Include: Strength training, Active ROM, Dynamic Lumbar Stabilization For the Purpose of:: To increase tolerance to activity/condition/positio n IF ES: Yes Cryotherapy (ice pack, ice massage): Yes For the Purpose of:: To decrease pain This patient was last seen in our office 02/28/15. Pertinent comments regarding their Physical therapy will appear below: Pt seen for eval on 02/28 and POC was established. Pt no showed for every subsequent visit and therefore, I will discontinue him from PT. At this point I will be discontinuing this patient from physical therapy. I would be happy to see this patient again in the future if found appropriate by the physician. Thank you! Noe Garcias <Electronically signed by Noe Garcias > 04/19/15 0744 CC: Wendie Dawn DO EBG Signed Wendie Dawn Start: 03-01-2015 End: 03-01-2015 Inital Evaluation - PT Comments: See Note; NOTES: [facility] [facility] [place] [address] Fax REHABILITATION SERVICES INITIAL EVALUATION MR#: [id number] Acct: [id number] Name: LB CUEVA Rep #: [id number] : 1970 44 From: Noe Garcias Referring Dr.: Wendie Dawn DO Status: REG RCR Insurance: [facility] Date: Patient's Visit Information LB CUEVA is a 44 year old M, referred to Physical Therapy by Wendie Dawn,, with a diagnosis of LBP. Date of Evaluation: 02/28/15 Physical Therapist: Noe Garcias - Visit Plan Frequency: 2-3x /Week Duration: 4 Weeks - Subjective LBP intermittently but today is best day in a month, goes down into buttocks. Present about 4 weeks insidiously. Denies numbness and tingly. Sitting makes him worse. Sleeping feels fine. Walking initially feels better than sitting. Sleeps well on his back without pain. 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 Enjoys poker on weekends but is very sedentary. Push mowing yard can be painful or delayed due to LBP. Stairs are OK. Reaching for pedal in car can be problematic lately. Denies problems with urination or bowel/bladder. - Objective Sits with huinched posture, walks well without antalgia, transfers I on/off table. Reflexes patella 1/3, achilles 0/3. Sensation LE to gross light touch WNL. L/S AROM: ext min limited and pressure but feels OK. Double knee to chest is painless and causes no problems. Prone lie is painfree, eil painfree. PA pressure is tolerated well with just pressure. A little pain in lower L/S. L4. SLR is + L>R. Repeated motion is inconclusive with L SB, R SB, EXT, Unweighted flexion. flexion is slow and painful. left sidebend is limited Min as is right sidebend Mod. - Goals Goal 1:: I HEP to minimize future problems Goal Time Frame: 2-4 Weeks Goal 2:: Maintain LBP at 0-1/10 at all times Goal Time Frame: 2-4 Weeks - Rehabilitation Potential Physical Therapy Diagnosis: LBP Rehabilitation Potential: Fair - Anticipated Interventions Patient/Client Instruction: Educate patient on: Condition, Plan of Care Comments: posture and back care For the Purpose of:: To increase tolerance to activity/condition/positio n Therapeutic Exercise to Include: Strength training, Active ROM, Dynamic Lumbar Stabilization Comment: ext exercises and DLS, get pt back to H AND W workout. For the Purpose of:: To increase tolerance to activity/condition/positio n IF ES: Yes Cryotherapy (ice pack, ice massage): Yes For the Purpose of:: To decrease pain Thank you for the opportunity to evaluate your patient. For Medicare and Medicare HMO plans, please review the plan of care and approve it. It will need to be FAXED BACK to us at [phone] for Medicare purposes. Please let me know if there are questions or concerns regarding this plan of care. Physician Signature: Date: <Electronically signed by Noe Garcias > 03/01/15 0754 CC: Wendie Dawn DO NIECY Signed For Medicare only, by signing this I certify the plan of care. __ Physicians Signature Date Wendie Dawn Start: 02-23-2015 End: 02-24-2015 L/S Spine Min 4 Views Comments: See Note; NOTES: [facility] Imaging Services [address] [place] [address] Radiology Report MR#: [id number] Acct: [id number] Name: LB CUEVA Rep #: [id number] : 1970 M 44 From: Kiarra Boyce MD PCP: Wendie Dawn DO Status: REG CLI Study: L/S Spine Min 4 Views Date of Exam: 02/23/15 Exam# [id number] Ordering Dr: Wendie Dawn DO STUDY: X-RAY - LUMBAR SPINE REASON FOR EXAM: Male, 44 years old. Low back pain x3 weeks, no injury. No numbness. TECHNIQUE: 5 view(s) of the lumbar spine were obtained. COMPARISON: None FINDINGS: Normal lumbar lordosis. There is no substantial scoliosis. There is a normal alignment of the vertebrae. There is mild L3-L5 endplate spondylosis of the lumbar vertebrae. Mild disc space narrowing L5-S1. Neural foramina narrowing L4-5, L5-S1 with facet sclerosis. The soft tissue structures are unremarkable. IMPRESSION: Mild degenerative changes as above. Neuro foramina L5-S1, L4-5. Electronically Signed: Kiarra Boyce MD at 7:22 EDT , Service support [phone], RAD/L/S Spine Min 4 Views IMPRESSION: Mild degenerative changes as above. Neuro foramina L5-S1, L4-5. Electronically Signed: Kiarra Boyce MD at 7:22 EDT , Service support [phone], CC: Wendie Dawn DO Design Studio Consultant: Signed Wendie Dawn Work Phone: Plan of Treatment Date Care Activity Detail Author Start: 12-16-2022 C-reactive protein C-REACTIVE PROTEIN (12893) [facility]; [facility] Work Phone: Start: 12-16-2022 Sedimentation rate r bc non-automated Sed Rate Erythrocyte (23025) [facility]; [facility] Work Phone: Start: 12-16-2022 Assay of thyroid stimulating hormone tsh TSH (06608) [facility]; [facility] Work Phone: Start: 12-16-2022 Urnls dip stick/tabl et reagent auto microscopy URINALYSIS, W/ MICRO ([id number]) [facility]; [facility] Work Phone: Start: 12-16-2022 Urine albumin quantitative MICROALBUMIN: CREATININE RATIO (36905) AND (62237) [facility]; [facility] Work Phone: Start: 12-16-2022 Comprehensive metabo lic panel METABOLIC PANEL, COMPREHENSIVE (96683) [facility]; [facility] Work Phone: Start: 12-16-2022 Blood count complete auto&auto difrntl wbc CBC W/AUTO DIFF WBC (20684) [facility]; [facility] Work Phone: Start: 12-16-2022 Procedure Education Eprescribe d prescriptions (G8553) [facility]; [facility] Work Phone: Start: 12-16-2022 Provider Instruction s for Treatment *Abd Pain Red Flags [facility]; [facility] Work Phone: Start: 07-12-2022 Procedure Education Eprescribe d prescriptions (G8553) [facility]; [facility] Work Phone: Start: 03-14-2022 Procedure Education Eprescribe d prescriptions (G8553) [facility]; [facility] Work Phone: Start: 01-08-2022 Lipid panel LIPID PANEL (54281) [facility]; [facility] Work Phone: Comment on above: in 3 months Start: 01-08-2022 Patient Education Compr [facility]; [facility] Work Phone: Start: 01-08-2022 Procedure Education Eprescribe d prescriptions (G8553) [facility]; [facility] Work Phone: Start: 01-08-2022 Provider Instruction s for Treatment [facility]; [facility] Work Phone: Start: 12-31-2021 Procedure Education Eprescribe d prescriptions (G8553) [facility]; [facility] Work Phone: Start: 12-31-2021 Provider Instruction s for Treatment Follow up in 1 week [facility]; [facility] Work Phone: Start: 06-19-2021 [place] influenza 2019 Novel Coronavirus (COVID-19), KRISTY ([id number]) [facility]; [facility] Work Phone: Start: 01-05-2021 Procedure Education Eprescribe d prescriptions (G8553) [facility]; [facility] Work Phone: Start: 05-25-2020 Procedure Education Eprescribe d prescriptions (G8553) [facility]; [facility] Work Phone: Start: 05-25-2020 [place] influenza 2019 Novel Coronavirus (COVID-19), KRISTY ([id number]) [facility]; [facility] Work Phone: Start: 03-13-2020 Procedure Education Eprescribe d prescriptions (G8553) [facility] Work Phone: Start: 09-13-2019 Procedure Education Eprescribe d prescriptions (G8553) [facility] Work Phone: Start: 04-07-2019 Comprehensive metabo lic panel METABOLIC PANEL, COMPREHENSIVE ([id number]) [facility] Work Phone: Start: 04-06-2019 Procedure Education Eprescribe d prescriptions (G8553) [facility] Work Phone: Start: 04-06-2019 Provider Instruction s for Treatment Follow up if no improvement or if symptoms worsen [facility] Work Phone: Start: 04-06-2019 Blood count complete auto&auto difrntl wbc CBC, Platelets & Auto Diff (64112) [facility] Work Phone: Start: 04-06-2019 Comprehensive metabo lic panel Metabolic Panel, Comprehensive (16884) [facility] Work Phone: Start: 04-06-2019 Virus centrifuge enh ncd id imfluor stain ea Influenza A&B Viral Culture (37654) [facility] Work Phone: Start: 07-25-2016 Provider Instruction s for Treatment Follow up if no improvement or if symptoms worsen [facility] Work Phone: Start: 03-16-2015 Patient Education Exercises fo r the Workplace: back exercises [facility] Work Phone: Start: 03-16-2015 Procedure Education Eprescribe d prescriptions (G8553) [facility] Work Phone: Start: 02-23-2015 Procedure Education Eprescribe d prescriptions (G8553) [facility] Work Phone: Start: 02-23-2015 Provider Instruction s for Treatment [facility] Work Phone: [facility] Work Phone: [facility] Work Phone: [facility] Work Phone: [facility] Work Phone: [facility] Work Phone: [facility]; [facility] Work Phone: Payers Date Payer Category Payer Self-pay [id number] 2024 Unknown [id number] 2020 Private Health Insurance [id number] 2014 Unknown [id number] 1970 Unknown [id number] Unknown Unknown [id number] Unknown [id number] Unknown [id number] Unknown [id number] Social History Date Type Detail Facility [facility]: [facility] Start: 12-30-2019 Cigars [facility] Start: 1970 Sex Assigned At Male [facility] Clinical Notes Note Date & Type Note Facility Evaluation note No assessment information availa ble [facility] Work Phone: Instructions Name Patient Instructions Indication:Non-smoker Start: 1 Instruction Type:Provider Instructions for Treatment How to Access Health Information Online using Patient Portal and [employer] Apps Indication:Non-smoker Start: Instruction Type:Patient Education How to Access Health Information Online using Patient Portal and [employer] Apps Indication:Non-smoker Start: 0 Instruction Type:Patient Education Patient Instructions Indication:Non-smoker Start: 0 Instruction Type:Provider Instructions for Treatment How to access health information online Indication:Nausea Start: 0 Instruction Type:Patient Education How to access health information online - Detail Indication:Nausea Start: 0 Instruction Type:Patient Education Patient Instructions Indication:Nausea Start: 0 Instruction Type:Provider Instructions for Treatment Patient Instructions Indication:Sinusitis, bacterial Start: 0 Instruction Type:Provider Instructions for Treatment How to access health information online Indication:BMI 50.0-59.9, adult Start: 9 Instruction Type:Patient Education How to access health information online - Detail Indication:BMI 50.0-59.9, adult Start: 9 Instruction Type:Patient Education Patient Instructions Indication:BMI 50.0-59.9, adult Start: 9 Instruction Type:Provider Instructions for Treatment How to access health information online Indication:Non-smoker Start:25-Jul-2016 Instruction Type:Patient Education How to access health information online - Detail Indication:Non-smoker Start:25-Jul-2016 Instruction Type:Patient Education Patient Instructions Indication:Non-smoker Start:25-Jul-2016 Instruction Type:Provider Instructions for Treatment Patient Instructions Indication:Low back pain Start: 5 Instruction Type:Provider Instructions for Treatment How to access health information online Indication:Low back pain Start:23-Feb-2015 Instruction Type:Patient Education How to access health information online - Detail Indication:Low back pain Start:23-Feb-2015 Instruction Type:Patient Education Patient Instructions Indication:Low back pain Start:23-Feb-2015 Instruction Type:Provider Instructions for Treatment [facility]; [facility] Work Phone: Instructions* Name Dates Details Patient Instructions Indication:COVID Start:19-Jun-2021 Instruction Type:Provider Instructions for Treatment Patient Instructions Indication:Non-smoker Start:05-Jan-2021 Instruction Type:Provider Instructions for Treatment How to Access Health Informa tion Online using Patient Portal and [employer] Apps Indication:Non-smoker Start:05-Jan-2021 Instruction Type:Patient Education How to Access Health Informa tion Online using Patient Portal and [employer] Apps Indication:Non-smoker Start:25-May-2020 Instruction Type:Patient Education Patient Instructions Indication:Non-smoker Start:25-May-2020 Instruction Type:Provider Instructions for Treatment How to access health informa tion online Indication:Nausea Start:13-Mar-2020 Instruction Type:Patient Education How to access health informa tion online - Detail Indication:Nausea Start:13-Mar-2020 Instruction Type:Patient Education Patient Instructions Indication:Nausea Start:13-Mar-2020 Instruction Type:Provider Instructions for Treatment Patient Instructions Indication:Sinusitis, bacterial Start:13-Sep-2019 Instruction Type:Provider Instructions for Treatment How to access health informa tion online Indication:BMI 50.0-59.9, adult Start:06-Apr-2019 Instruction Type:Patient Education How to access health informa tion online - Detail Indication:BMI 50.0-59.9, adult Start:06-Apr-2019 Instruction Type:Patient Education Patient Instructions Indication:BMI 50.0-59.9, adult Start:06-Apr-2019 Instruction Type:Provider Instructions for Treatment How to access health informa tion online Indication:Non-smoker Start:25-Jul-2016 Instruction Type:Patient Education How to access health informa tion online - Detail Indication:Non-smoker Start:25-Jul-2016 Instruction Type:Patient Education Patient Instructions Indication:Non-smoker Start:25-Jul-2016 Instruction Type:Provider Instructions for Treatment Patient Instructions Indication:Low back pain Start:16-Mar-2015 Instruction Type:Provider Instructions for Treatment How to access health informa tion online Indication:Low back pain Start:23-Feb-2015 Instruction Type:Patient Education How to access health informa tion online - Detail Indication:Low back pain Start:23-Feb-2015 Instruction Type:Patient Education Patient Instructions Indication:Low back pain Start:23-Feb-2015 Instruction Type:Provider Instructions for Treatment [facility]; [facility] Work Phone: Instructions* Name Dates Details Patient Instructions Indication:COVID Start:19-Jun-2021 Instruction Type:Provider Instructions for Treatment Patient Instructions Indication:Non-smoker Start:05-Jan-2021 Instruction Type:Provider Instructions for Treatment How to Access Health Informa tion Online using Patient Portal and [employer] Apps Indication:Non-smoker Start:05-Jan-2021 Instruction Type:Patient Education How to Access Health Informa tion Online using Patient Portal and [employer] Apps Indication:Non-smoker Start:25-May-2020 Instruction Type:Patient Education Patient Instructions Indication:Non-smoker Start:25-May-2020 Instruction Type:Provider Instructions for Treatment How to access health informa tion online Indication:Nausea Start:13-Mar-2020 Instruction Type:Patient Education How to access health informa tion online - Detail Indication:Nausea Start:13-Mar-2020 Instruction Type:Patient Education Patient Instructions Indication:Nausea Start:13-Mar-2020 Instruction Type:Provider Instructions for Treatment Patient Instructions Indication:Sinusitis, bacterial Start:13-Sep-2019 Instruction Type:Provider Instructions for Treatment How to access health informa tion online Indication:BMI 50.0-59.9, adult Start:06-Apr-2019 Instruction Type:Patient Education How to access health informa tion online - Detail Indication:BMI 50.0-59.9, adult Start:06-Apr-2019 Instruction Type:Patient Education Patient Instructions Indication:BMI 50.0-59.9, adult Start:06-Apr-2019 Instruction Type:Provider Instructions for Treatment How to access health informa tion online Indication:Non-smoker Start:25-Jul-2016 Instruction Type:Patient Education How to access health informa tion online - Detail Indication:Non-smoker Start:25-Jul-2016 Instruction Type:Patient Education Patient Instructions Indication:Non-smoker Start:25-Jul-2016 Instruction Type:Provider Instructions for Treatment Patient Instructions Indication:Low back pain Start:16-Mar-2015 Instruction Type:Provider Instructions for Treatment How to access health informa tion online Indication:Low back pain Start:23-Feb-2015 Instruction Type:Patient Education How to access health informa tion online - Detail Indication:Low back pain Start:23-Feb-2015 Instruction Type:Patient Education Patient Instructions Indication:Low back pain Start:23-Feb-2015 Instruction Type:Provider Instructions for Treatment [facility]; [facility] Work Phone: Instructions* Name Dates Details Patient Instructions Indication:Non-smoker Start:31-Dec-2021 Instruction Type:Provider Instructions for Treatment How to Access Health Informa tion Online using Patient Portal and [employer] Apps Indication:Non-smoker Start:31-Dec-2021 Instruction Type:Patient Education Patient Instructions Indication:COVID Start:19-Jun-2021 Instruction Type:Provider Instructions for Treatment Patient Instructions Indication:Non-smoker Start:05-Jan-2021 Instruction Type:Provider Instructions for Treatment How to Access Health Informa tion Online using Patient Portal and [employer] Apps Indication:Non-smoker Start:05-Jan-2021 Instruction Type:Patient Education How to Access Health Informa tion Online using Patient Portal and [employer] Apps Indication:Non-smoker Start:25-May-2020 Instruction Type:Patient Education Patient Instructions Indication:Non-smoker Start:25-May-2020 Instruction Type:Provider Instructions for Treatment How to access health informa tion online Indication:Nausea Start:13-Mar-2020 Instruction Type:Patient Education How to access health informa tion online - Detail Indication:Nausea Start:13-Mar-2020 Instruction Type:Patient Education Patient Instructions Indication:Nausea Start:13-Mar-2020 Instruction Type:Provider Instructions for Treatment Patient Instructions Indication:Sinusitis, bacterial Start:13-Sep-2019 Instruction Type:Provider Instructions for Treatment How to access health informa tion online Indication:BMI 50.0-59.9, adult Start:06-Apr-2019 Instruction Type:Patient Education How to access health informa tion online - Detail Indication:BMI 50.0-59.9, adult Start:06-Apr-2019 Instruction Type:Patient Education Patient Instructions Indication:BMI 50.0-59.9, adult Start:06-Apr-2019 Instruction Type:Provider Instructions for Treatment How to access health informa tion online Indication:Non-smoker Start:25-Jul-2016 Instruction Type:Patient Education How to access health informa tion online - Detail Indication:Non-smoker Start:25-Jul-2016 Instruction Type:Patient Education Patient Instructions Indication:Non-smoker Start:25-Jul-2016 Instruction Type:Provider Instructions for Treatment Patient Instructions Indication:Low back pain Start:16-Mar-2015 Instruction Type:Provider Instructions for Treatment How to access health informa tion online Indication:Low back pain Start:23-Feb-2015 Instruction Type:Patient Education How to access health informa tion online - Detail Indication:Low back pain Start:23-Feb-2015 Instruction Type:Patient Education Patient Instructions Indication:Low back pain Start:23-Feb-2015 Instruction Type:Provider Instructions for Treatment [facility]; [facility] Work Phone: Instructions* Name Dates Details Patient Instructions Indication:Non-smoker Start:31-Dec-2021 Instruction Type:Provider Instructions for Treatment How to Access Health Informa tion Online using Patient Portal and [employer] Apps Indication:Non-smoker Start:31-Dec-2021 Instruction Type:Patient Education Patient Instructions Indication:COVID Start:19-Jun-2021 Instruction Type:Provider Instructions for Treatment Patient Instructions Indication:Non-smoker Start:05-Jan-2021 Instruction Type:Provider Instructions for Treatment How to Access Health Informa tion Online using Patient Portal and [employer] Apps Indication:Non-smoker Start:05-Jan-2021 Instruction Type:Patient Education How to Access Health Informa tion Online using Patient Portal and [employer] Apps Indication:Non-smoker Start:25-May-2020 Instruction Type:Patient Education Patient Instructions Indication:Non-smoker Start:25-May-2020 Instruction Type:Provider Instructions for Treatment How to access health informa tion online Indication:Nausea Start:13-Mar-2020 Instruction Type:Patient Education How to access health informa tion online - Detail Indication:Nausea Start:13-Mar-2020 Instruction Type:Patient Education Patient Instructions Indication:Nausea Start:13-Mar-2020 Instruction Type:Provider Instructions for Treatment Patient Instructions Indication:Sinusitis, bacterial Start:13-Sep-2019 Instruction Type:Provider Instructions for Treatment How to access health informa tion online Indication:BMI 50.0-59.9, adult Start:06-Apr-2019 Instruction Type:Patient Education How to access health informa tion online - Detail Indication:BMI 50.0-59.9, adult Start:06-Apr-2019 Instruction Type:Patient Education Patient Instructions Indication:BMI 50.0-59.9, adult Start:06-Apr-2019 Instruction Type:Provider Instructions for Treatment How to access health informa tion online Indication:Non-smoker Start:25-Jul-2016 Instruction Type:Patient Education How to access health informa tion online - Detail Indication:Non-smoker Start:25-Jul-2016 Instruction Type:Patient Education Patient Instructions Indication:Non-smoker Start:25-Jul-2016 Instruction Type:Provider Instructions for Treatment Patient Instructions Indication:Low back pain Start:16-Mar-2015 Instruction Type:Provider Instructions for Treatment How to access health informa tion online Indication:Low back pain Start:23-Feb-2015 Instruction Type:Patient Education How to access health informa tion online - Detail Indication:Low back pain Start:23-Feb-2015 Instruction Type:Patient Education Patient Instructions Indication:Low back pain Start:23-Feb-2015 Instruction Type:Provider Instructions for Treatment [facility]; [facility] Work Phone: Instructions* Name Dates Details Patient Instructions Indication:Non-smoker Start:08-Jan-2022 Instruction Type:Provider Instructions for Treatment How to Access Health Informa tion Online using Patient Portal and [employer] Apps Indication:Non-smoker Start:08-Jan-2022 Instruction Type:Patient Education Patient Instructions Indication:Non-smoker Start:31-Dec-2021 Instruction Type:Provider Instructions for Treatment How to Access Health Informa tion Online using Patient Portal and [employer] Apps Indication:Non-smoker Start:31-Dec-2021 Instruction Type:Patient Education Patient Instructions Indication:COVID Start:19-Jun-2021 Instruction Type:Provider Instructions for Treatment Patient Instructions Indication:Non-smoker Start:05-Jan-2021 Instruction Type:Provider Instructions for Treatment How to Access Health Informa tion Online using Patient Portal and [employer] Apps Indication:Non-smoker Start:05-Jan-2021 Instruction Type:Patient Education How to Access Health Informa tion Online using Patient Portal and [employer] Apps Indication:Non-smoker Start:25-May-2020 Instruction Type:Patient Education Patient Instructions Indication:Non-smoker Start:25-May-2020 Instruction Type:Provider Instructions for Treatment How to access health informa tion online Indication:Nausea Start:13-Mar-2020 Instruction Type:Patient Education How to access health informa tion online - Detail Indication:Nausea Start:13-Mar-2020 Instruction Type:Patient Education Patient Instructions Indication:Nausea Start:13-Mar-2020 Instruction Type:Provider Instructions for Treatment Patient Instructions Indication:Sinusitis, bacterial Start:13-Sep-2019 Instruction Type:Provider Instructions for Treatment How to access health informa tion online Indication:BMI 50.0-59.9, adult Start:06-Apr-2019 Instruction Type:Patient Education How to access health informa tion online - Detail Indication:BMI 50.0-59.9, adult Start:06-Apr-2019 Instruction Type:Patient Education Patient Instructions Indication:BMI 50.0-59.9, adult Start:06-Apr-2019 Instruction Type:Provider Instructions for Treatment How to access health informa tion online Indication:Non-smoker Start:25-Jul-2016 Instruction Type:Patient Education How to access health informa tion online - Detail Indication:Non-smoker Start:25-Jul-2016 Instruction Type:Patient Education Patient Instructions Indication:Non-smoker Start:25-Jul-2016 Instruction Type:Provider Instructions for Treatment Patient Instructions Indication:Low back pain Start:16-Mar-2015 Instruction Type:Provider Instructions for Treatment How to access health informa tion online Indication:Low back pain Start:23-Feb-2015 Instruction Type:Patient Education How to access health informa tion online - Detail Indication:Low back pain Start:23-Feb-2015 Instruction Type:Patient Education Patient Instructions Indication:Low back pain Start:23-Feb-2015 Instruction Type:Provider Instructions for Treatment [facility]; [facility] Work Phone: Instructions* Name Dates Details Patient Instructions Indication:BMI 50.0-59.9, adult Start:14-Mar-2022 Instruction Type:Provider Instructions for Treatment How to Access Health Informa tion Online using Patient Portal and [employer] Apps Indication:BMI 50.0-59.9, adult Start:14-Mar-2022 Instruction Type:Patient Education Patient Instructions Indication:Non-smoker Start:08-Jan-2022 Instruction Type:Provider Instructions for Treatment How to Access Health Informa tion Online using Patient Portal and [employer] Apps Indication:Non-smoker Start:08-Jan-2022 Instruction Type:Patient Education Patient Instructions Indication:Non-smoker Start:31-Dec-2021 Instruction Type:Provider Instructions for Treatment How to Access Health Informa tion Online using Patient Portal and [employer] Apps Indication:Non-smoker Start:31-Dec-2021 Instruction Type:Patient Education Patient Instructions Indication:COVID Start:19-Jun-2021 Instruction Type:Provider Instructions for Treatment Patient Instructions Indication:Non-smoker Start:05-Jan-2021 Instruction Type:Provider Instructions for Treatment How to Access Health Informa tion Online using Patient Portal and [employer] Apps Indication:Non-smoker Start:05-Jan-2021 Instruction Type:Patient Education How to Access Health Informa tion Online using Patient Portal and [employer] Apps Indication:Non-smoker Start:25-May-2020 Instruction Type:Patient Education Patient Instructions Indication:Non-smoker Start:25-May-2020 Instruction Type:Provider Instructions for Treatment How to access health informa tion online Indication:Nausea Start:13-Mar-2020 Instruction Type:Patient Education How to access health informa tion online - Detail Indication:Nausea Start:13-Mar-2020 Instruction Type:Patient Education Patient Instructions Indication:Nausea Start:13-Mar-2020 Instruction Type:Provider Instructions for Treatment Patient Instructions Indication:Sinusitis, bacterial Start:13-Sep-2019 Instruction Type:Provider Instructions for Treatment How to access health informa tion online Indication:BMI 50.0-59.9, adult Start:06-Apr-2019 Instruction Type:Patient Education How to access health informa tion online - Detail Indication:BMI 50.0-59.9, adult Start:06-Apr-2019 Instruction Type:Patient Education Patient Instructions Indication:BMI 50.0-59.9, adult Start:06-Apr-2019 Instruction Type:Provider Instructions for Treatment How to access health informa tion online Indication:Non-smoker Start:25-Jul-2016 Instruction Type:Patient Education How to access health informa tion online - Detail Indication:Non-smoker Start:25-Jul-2016 Instruction Type:Patient Education Patient Instructions Indication:Non-smoker Start:25-Jul-2016 Instruction Type:Provider Instructions for Treatment Patient Instructions Indication:Low back pain Start:16-Mar-2015 Instruction Type:Provider Instructions for Treatment How to access health informa tion online Indication:Low back pain Start:23-Feb-2015 Instruction Type:Patient Education How to access health informa tion online - Detail Indication:Low back pain Start:23-Feb-2015 Instruction Type:Patient Education Patient Instructions Indication:Low back pain Start:23-Feb-2015 Instruction Type:Provider Instructions for Treatment [facility]; [facility] Work Phone: Instructions* Name Dates Details Patient Instructions Indication:Non-smoker Start:12-Jul-2022 Instruction Type:Provider Instructions for Treatment How to Access Health Informa tion Online using Patient Portal and [employer] Apps Indication:Non-smoker Start:12-Jul-2022 Instruction Type:Patient Education Patient Instructions Indication:BMI 50.0-59.9, adult Start:14-Mar-2022 Instruction Type:Provider Instructions for Treatment How to Access Health Informa tion Online using Patient Portal and [employer] Apps Indication:BMI 50.0-59.9, adult Start:14-Mar-2022 Instruction Type:Patient Education Patient Instructions Indication:Non-smoker Start:08-Jan-2022 Instruction Type:Provider Instructions for Treatment How to Access Health Informa tion Online using Patient Portal and [employer] Apps Indication:Non-smoker Start:08-Jan-2022 Instruction Type:Patient Education Patient Instructions Indication:Non-smoker Start:31-Dec-2021 Instruction Type:Provider Instructions for Treatment How to Access Health Informa tion Online using Patient Portal and [employer] Apps Indication:Non-smoker Start:31-Dec-2021 Instruction Type:Patient Education Patient Instructions Indication:COVID Start:19-Jun-2021 Instruction Type:Provider Instructions for Treatment Patient Instructions Indication:Non-smoker Start:05-Jan-2021 Instruction Type:Provider Instructions for Treatment How to Access Health Informa tion Online using Patient Portal and [employer] Apps Indication:Non-smoker Start:05-Jan-2021 Instruction Type:Patient Education How to Access Health Informa tion Online using Patient Portal and [employer] Apps Indication:Non-smoker Start:25-May-2020 Instruction Type:Patient Education Patient Instructions Indication:Non-smoker Start:25-May-2020 Instruction Type:Provider Instructions for Treatment How to access health informa tion online Indication:Nausea Start:13-Mar-2020 Instruction Type:Patient Education How to access health informa tion online - Detail Indication:Nausea Start:13-Mar-2020 Instruction Type:Patient Education Patient Instructions Indication:Nausea Start:13-Mar-2020 Instruction Type:Provider Instructions for Treatment Patient Instructions Indication:Sinusitis, bacterial Start:13-Sep-2019 Instruction Type:Provider Instructions for Treatment How to access health informa tion online Indication:BMI 50.0-59.9, adult Start:06-Apr-2019 Instruction Type:Patient Education How to access health informa tion online - Detail Indication:BMI 50.0-59.9, adult Start:06-Apr-2019 Instruction Type:Patient Education Patient Instructions Indication:BMI 50.0-59.9, adult Start:06-Apr-2019 Instruction Type:Provider Instructions for Treatment How to access health informa tion online Indication:Non-smoker Start:25-Jul-2016 Instruction Type:Patient Education How to access health informa tion online - Detail Indication:Non-smoker Start:25-Jul-2016 Instruction Type:Patient Education Patient Instructions Indication:Non-smoker Start:25-Jul-2016 Instruction Type:Provider Instructions for Treatment Patient Instructions Indication:Low back pain Start:16-Mar-2015 Instruction Type:Provider Instructions for Treatment How to access health informa tion online Indication:Low back pain Start:23-Feb-2015 Instruction Type:Patient Education How to access health informa tion online - Detail Indication:Low back pain Start:23-Feb-2015 Instruction Type:Patient Education Patient Instructions Indication:Low back pain Start:23-Feb-2015 Instruction Type:Provider Instructions for Treatment [facility]; [facility] Work Phone: Instructions* Name Dates Details Patient Instructions Indication:BMI 50.0-59.9, adult Start:16-Dec-2022 Instruction Type:Provider Instructions for Treatment How to Access Health Informa tion Online using Patient Portal and [employer] Apps Indication:BMI 50.0-59.9, adult Start:16-Dec-2022 Instruction Type:Patient Education Patient Instructions Indication:Non-smoker Start:12-Jul-2022 Instruction Type:Provider Instructions for Treatment How to Access Health Informa tion Online using Patient Portal and [employer] Apps Indication:Non-smoker Start:12-Jul-2022 Instruction Type:Patient Education Patient Instructions Indication:BMI 50.0-59.9, adult Start:14-Mar-2022 Instruction Type:Provider Instructions for Treatment How to Access Health Informa tion Online using Patient Portal and [employer] Apps Indication:BMI 50.0-59.9, adult Start:14-Mar-2022 Instruction Type:Patient Education Patient Instructions Indication:Non-smoker Start:08-Jan-2022 Instruction Type:Provider Instructions for Treatment How to Access Health Informa tion Online using Patient Portal and [employer] Apps Indication:Non-smoker Start:08-Jan-2022 Instruction Type:Patient Education Patient Instructions Indication:Non-smoker Start:31-Dec-2021 Instruction Type:Provider Instructions for Treatment How to Access Health Informa tion Online using Patient Portal and [employer] Apps Indication:Non-smoker Start:31-Dec-2021 Instruction Type:Patient Education Patient Instructions Indication:COVID Start:19-Jun-2021 Instruction Type:Provider Instructions for Treatment Patient Instructions Indication:Non-smoker Start:05-Jan-2021 Instruction Type:Provider Instructions for Treatment How to Access Health Informa tion Online using Patient Portal and [employer] Apps Indication:Non-smoker Start:05-Jan-2021 Instruction Type:Patient Education How to Access Health Informa tion Online using Patient Portal and [employer] Apps Indication:Non-smoker Start:25-May-2020 Instruction Type:Patient Education Patient Instructions Indication:Non-smoker Start:25-May-2020 Instruction Type:Provider Instructions for Treatment How to access health informa tion online Indication:Nausea Start:13-Mar-2020 Instruction Type:Patient Education How to access health informa tion online - Detail Indication:Nausea Start:13-Mar-2020 Instruction Type:Patient Education Patient Instructions Indication:Nausea Start:13-Mar-2020 Instruction Type:Provider Instructions for Treatment Patient Instructions Indication:Sinusitis, bacterial Start:13-Sep-2019 Instruction Type:Provider Instructions for Treatment How to access health informa tion online Indication:BMI 50.0-59.9, adult Start:06-Apr-2019 Instruction Type:Patient Education How to access health informa tion online - Detail Indication:BMI 50.0-59.9, adult Start:06-Apr-2019 Instruction Type:Patient Education Patient Instructions Indication:BMI 50.0-59.9, adult Start:06-Apr-2019 Instruction Type:Provider Instructions for Treatment How to access health informa tion online Indication:Non-smoker Start:25-Jul-2016 Instruction Type:Patient Education How to access health informa tion online - Detail Indication:Non-smoker Start:25-Jul-2016 Instruction Type:Patient Education Patient Instructions Indication:Non-smoker Start:25-Jul-2016 Instruction Type:Provider Instructions for Treatment Patient Instructions Indication:Low back pain Start:16-Mar-2015 Instruction Type:Provider Instructions for Treatment How to access health informa tion online Indication:Low back pain Start:23-Feb-2015 Instruction Type:Patient Education How to access health informa tion online - Detail Indication:Low back pain Start:23-Feb-2015 Instruction Type:Patient Education Patient Instructions Indication:Low back pain Start:23-Feb-2015 Instruction Type:Provider Instructions for Treatment [facility]; [facility] Work Phone: Instructions* Name Dates Details Patient Instructions Indication:BMI 50.0-59.9, adult Start:16-Dec-2022 Instruction Type:Provider Instructions for Treatment How to Access Health Informa tion Online using Patient Portal and [employer] Apps Indication:BMI 50.0-59.9, adult Start:16-Dec-2022 Instruction Type:Patient Education Patient Instructions Indication:Non-smoker Start:12-Jul-2022 Instruction Type:Provider Instructions for Treatment How to Access Health Informa tion Online using Patient Portal and [employer] Apps Indication:Non-smoker Start:12-Jul-2022 Instruction Type:Patient Education Patient Instructions Indication:BMI 50.0-59.9, adult Start:14-Mar-2022 Instruction Type:Provider Instructions for Treatment How to Access Health Informa tion Online using Patient Portal and [employer] Apps Indication:BMI 50.0-59.9, adult Start:14-Mar-2022 Instruction Type:Patient Education Patient Instructions Indication:Non-smoker Start:08-Jan-2022 Instruction Type:Provider Instructions for Treatment How to Access Health Informa tion Online using Patient Portal and [employer] Apps Indication:Non-smoker Start:08-Jan-2022 Instruction Type:Patient Education Patient Instructions Indication:Non-smoker Start:31-Dec-2021 Instruction Type:Provider Instructions for Treatment How to Access Health Informa tion Online using Patient Portal and [employer] Apps Indication:Non-smoker Start:31-Dec-2021 Instruction Type:Patient Education Patient Instructions Indication:COVID Start:19-Jun-2021 Instruction Type:Provider Instructions for Treatment Patient Instructions Indication:Non-smoker Start:05-Jan-2021 Instruction Type:Provider Instructions for Treatment How to Access Health Informa tion Online using Patient Portal and [employer] Apps Indication:Non-smoker Start:05-Jan-2021 Instruction Type:Patient Education How to Access Health Informa tion Online using Patient Portal and [employer] Apps Indication:Non-smoker Start:25-May-2020 Instruction Type:Patient Education Patient Instructions Indication:Non-smoker Start:25-May-2020 Instruction Type:Provider Instructions for Treatment How to access health informa tion online Indication:Nausea Start:13-Mar-2020 Instruction Type:Patient Education How to access health informa tion online - Detail Indication:Nausea Start:13-Mar-2020 Instruction Type:Patient Education Patient Instructions Indication:Nausea Start:13-Mar-2020 Instruction Type:Provider Instructions for Treatment Patient Instructions Indication:Sinusitis, bacterial Start:13-Sep-2019 Instruction Type:Provider Instructions for Treatment How to access health informa tion online Indication:BMI 50.0-59.9, adult Start:06-Apr-2019 Instruction Type:Patient Education How to access health informa tion online - Detail Indication:BMI 50.0-59.9, adult Start:06-Apr-2019 Instruction Type:Patient Education Patient Instructions Indication:BMI 50.0-59.9, adult Start:06-Apr-2019 Instruction Type:Provider Instructions for Treatment How to access health informa tion online Indication:Non-smoker Start:25-Jul-2016 Instruction Type:Patient Education How to access health informa tion online - Detail Indication:Non-smoker Start:25-Jul-2016 Instruction Type:Patient Education Patient Instructions Indication:Non-smoker Start:25-Jul-2016 Instruction Type:Provider Instructions for Treatment Patient Instructions Indication:Low back pain Start:16-Mar-2015 Instruction Type:Provider Instructions for Treatment How to access health informa tion online Indication:Low back pain Start:23-Feb-2015 Instruction Type:Patient Education How to access health informa tion online - Detail Indication:Low back pain Start:23-Feb-2015 Instruction Type:Patient Education Patient Instructions Indication:Low back pain Start:23-Feb-2015 Instruction Type:Provider Instructions for Treatment [facility]; [facility] Work Phone: Family History No Family History Records FoundUnknown Family Member Name Dates Details Brother 1 Comments:htn, kidney ca Status:Active Father Comments:adrenal ca, htn Status:Active Mother Comments:lung ca Status:Active Paternal Grandfather Comments:stroke Status:Active Paternal Grandmother Comments:cancer Status:Active Unknown Family Member Name Dates Details Brother 1 Comments:htn, kidney ca Status:Active Father Comments:adrenal ca, htn Status:Active Mother Comments:lung ca Status:Active Paternal Grandfather Comments:stroke Status:Active Paternal Grandmother Comments:cancer Status:Active Unknown Family Member Name Dates Details Brother 1 Comments:htn, kidney ca Status:Active Father Comments:adrenal ca, htn Status:Active Mother Comments:lung ca Status:Active Paternal Grandfather Comments:stroke Status:Active Paternal Grandmother Comments:cancer Status:Active Unknown Family Member Name Dates Details Brother 1 Comments:htn, kidney ca Status:Active Father Comments:adrenal ca, htn Status:Active Mother Comments:lung ca Status:Active Paternal Grandfather Comments:stroke Status:Active Paternal Grandmother Comments:cancer Status:Active Unknown Family Member Name Dates Details Brother 1 Comments:htn, kidney ca Status:Active Father Comments:adrenal ca, htn Status:Active Mother Comments:lung ca Status:Active Paternal Grandfather Comments:stroke Status:Active Paternal Grandmother Comments:cancer Status:Active Unknown Family Member Name Dates Details Brother 1 Comments:htn, kidney ca Status:Active Father Comments:adrenal ca, htn Status:Active Mother Comments:lung ca Status:Active Paternal Grandfather Comments:stroke Status:Active Paternal Grandmother Comments:cancer Status:Active Unknown Family Member Name Dates Details Brother 1 Comments:htn, kidney ca Status:Active Father Comments:adrenal ca, htn Status:Active Mother Comments:lung ca Status:Active Paternal Grandfather Comments:stroke Status:Active Paternal Grandmother Comments:cancer Status:Active Unknown Family Member Name Dates Details Brother 1 Comments:htn, kidney ca Status:Active Father Comments:adrenal ca, htn Status:Active Mother Comments:lung ca Status:Active Paternal Grandfather Comments:stroke Status:Active Paternal Grandmother Comments:cancer Status:Active Unknown Family Member Name Dates Details Brother 1 Comments:htn, kidney ca Status:Active Father Comments:adrenal ca, htn Status:Active Mother Comments:lung ca Status:Active Paternal Grandfather Comments:stroke Status:Active Paternal Grandmother Comments:cancer Status:Active Unknown Family Member Name Dates Details Brother 1 Comments:htn, kidney ca Status:Active Father Comments:adrenal ca, htn Status:Active Mother Comments:lung ca Status:Active Paternal Grandfather Comments:stroke Status:Active Paternal Grandmother Comments:cancer Status:Active Unknown Family Member Name Dates Details Brother 1 Comments:htn, kidney ca Status:Active Father Comments:adrenal ca, htn Status:Active Mother Comments:lung ca Status:Active Paternal Grandfather Comments:stroke Status:Active Paternal Grandmother Comments:cancer Status:Active Unknown Family Member Name Dates Details Brother 1 Comments:htn, kidney ca Status:Active Father Comments:adrenal ca, htn Status:Active Mother Comments:lung ca Status:Active Paternal Grandfather Comments:stroke Status:Active Paternal Grandmother Comments:cancer Status:Active Unknown Family Member Name Dates Details Brother 1 Comments:htn, kidney ca Status:Active Father Comments:adrenal ca, htn Status:Active Mother Comments:lung ca Status:Active Paternal Grandfather Comments:stroke Status:Active Paternal Grandmother Comments:cancer Status:Active Unknown Family Member Name Dates Details Brother 1 Comments:htn, kidney ca Status:Active Father Comments:adrenal ca, htn Status:Active Mother Comments:lung ca Status:Active Paternal Grandfather Comments:stroke Status:Active Paternal Grandmother Comments:cancer Status:Active Unknown Family Member Name Dates Details Brother 1 Comments:htn, kidney ca Status:Active Father Comments:adrenal ca, htn Status:Active Mother Comments:lung ca Status:Active Paternal Grandfather Comments:stroke Status:Active Paternal Grandmother Comments:cancer Status:Active Unknown Family Member Name Dates Details Brother 1 Comments:htn, kidney ca Status:Active Father Comments:adrenal ca, htn Status:Active Mother Comments:lung ca Status:Active Paternal Grandfather Comments:stroke Status:Active Paternal Grandmother Comments:cancer Status:Active Instructions Name Dates Details How to access health informa tion online Indication:BMI 50.0-59.9, adult Start:06-Apr-2019 Instruction Type:Patient Education How to access health informa tion online - Detail Indication:BMI 50.0-59.9, adult Start:06-Apr-2019 Instruction Type:Patient Education Patient Instructions Indication:BMI 50.0-59.9, adult Start:06-Apr-2019 Instruction Type:Provider Instructions for Treatment How to access health informa tion online Indication:Non-smoker Start:25-Jul-2016 Instruction Type:Patient Education How to access health informa tion online - Detail Indication:Non-smoker Start:25-Jul-2016 Instruction Type:Patient Education Patient Instructions Indication:Non-smoker Start:25-Jul-2016 Instruction Type:Provider Instructions for Treatment Patient Instructions Indication:Low back pain Start:16-Mar-2015 Instruction Type:Provider Instructions for Treatment How to access health informa tion online Indication:Low back pain Start:23-Feb-2015 Instruction Type:Patient Education How to access health informa tion online - Detail Indication:Low back pain Start:23-Feb-2015 Instruction Type:Patient Education Patient Instructions Indication:Low back pain Start:23-Feb-2015 Instruction Type:Provider Instructions for Treatment Name Dates Details How to access health informa tion online Indication:BMI 50.0-59.9, adult Start:06-Apr-2019 Instruction Type:Patient Education How to access health informa tion online - Detail Indication:BMI 50.0-59.9, adult Start:06-Apr-2019 Instruction Type:Patient Education Patient Instructions Indication:BMI 50.0-59.9, adult Start:06-Apr-2019 Instruction Type:Provider Instructions for Treatment How to access health informa tion online Indication:Non-smoker Start:25-Jul-2016 Instruction Type:Patient Education How to access health informa tion online - Detail Indication:Non-smoker Start:25-Jul-2016 Instruction Type:Patient Education Patient Instructions Indication:Non-smoker Start:25-Jul-2016 Instruction Type:Provider Instructions for Treatment Patient Instructions Indication:Low back pain Start:16-Mar-2015 Instruction Type:Provider Instructions for Treatment How to access health informa tion online Indication:Low back pain Start:23-Feb-2015 Instruction Type:Patient Education How to access health informa tion online - Detail Indication:Low back pain Start:23-Feb-2015 Instruction Type:Patient Education Patient Instructions Indication:Low back pain Start:23-Feb-2015 Instruction Type:Provider Instructions for Treatment Name Dates Details How to access health informa tion online Indication:BMI 50.0-59.9, adult Start:06-Apr-2019 Instruction Type:Patient Education How to access health informa tion online - Detail Indication:BMI 50.0-59.9, adult Start:06-Apr-2019 Instruction Type:Patient Education Patient Instructions Indication:BMI 50.0-59.9, adult Start:06-Apr-2019 Instruction Type:Provider Instructions for Treatment How to access health informa tion online Indication:Non-smoker Start:25-Jul-2016 Instruction Type:Patient Education How to access health informa tion online - Detail Indication:Non-smoker Start:25-Jul-2016 Instruction Type:Patient Education Patient Instructions Indication:Non-smoker Start:25-Jul-2016 Instruction Type:Provider Instructions for Treatment Patient Instructions Indication:Low back pain Start:16-Mar-2015 Instruction Type:Provider Instructions for Treatment How to access health informa tion online Indication:Low back pain Start:23-Feb-2015 Instruction Type:Patient Education How to access health informa tion online - Detail Indication:Low back pain Start:23-Feb-2015 Instruction Type:Patient Education Patient Instructions Indication:Low back pain Start:23-Feb-2015 Instruction Type:Provider Instructions for Treatment Name Dates Details How to access health informa tion online Indication:Nausea Start:13-Mar-2020 Instruction Type:Patient Education How to access health informa tion online - Detail Indication:Nausea Start:13-Mar-2020 Instruction Type:Patient Education Patient Instructions Indication:Nausea Start:13-Mar-2020 Instruction Type:Provider Instructions for Treatment Patient Instructions Indication:Sinusitis, bacterial Start:13-Sep-2019 Instruction Type:Provider Instructions for Treatment How to access health informa tion online Indication:BMI 50.0-59.9, adult Start:06-Apr-2019 Instruction Type:Patient Education How to access health informa tion online - Detail Indication:BMI 50.0-59.9, adult Start:06-Apr-2019 Instruction Type:Patient Education Patient Instructions Indication:BMI 50.0-59.9, adult Start:06-Apr-2019 Instruction Type:Provider Instructions for Treatment How to access health informa tion online Indication:Non-smoker Start:25-Jul-2016 Instruction Type:Patient Education How to access health informa tion online - Detail Indication:Non-smoker Start:25-Jul-2016 Instruction Type:Patient Education Patient Instructions Indication:Non-smoker Start:25-Jul-2016 Instruction Type:Provider Instructions for Treatment Patient Instructions Indication:Low back pain Start:16-Mar-2015 Instruction Type:Provider Instructions for Treatment How to access health informa tion online Indication:Low back pain Start:23-Feb-2015 Instruction Type:Patient Education How to access health informa tion online - Detail Indication:Low back pain Start:23-Feb-2015 Instruction Type:Patient Education Patient Instructions Indication:Low back pain Start:23-Feb-2015 Instruction Type:Provider Instructions for Treatment Name Dates Details How to Access Health Informa tion Online using Patient Portal and [employer] Apps Indication:Non-smoker Start:25-May-2020 Instruction Type:Patient Education Patient Instructions Indication:Non-smoker Start:25-May-2020 Instruction Type:Provider Instructions for Treatment How to access health informa tion online Indication:Nausea Start:13-Mar-2020 Instruction Type:Patient Education How to access health informa tion online - Detail Indication:Nausea Start:13-Mar-2020 Instruction Type:Patient Education Patient Instructions Indication:Nausea Start:13-Mar-2020 Instruction Type:Provider Instructions for Treatment Patient Instructions Indication:Sinusitis, bacterial Start:13-Sep-2019 Instruction Type:Provider Instructions for Treatment How to access health informa tion online Indication:BMI 50.0-59.9, adult Start:06-Apr-2019 Instruction Type:Patient Education How to access health informa tion online - Detail Indication:BMI 50.0-59.9, adult Start:06-Apr-2019 Instruction Type:Patient Education Patient Instructions Indication:BMI 50.0-59.9, adult Start:06-Apr-2019 Instruction Type:Provider Instructions for Treatment How to access health informa tion online Indication:Non-smoker Start:25-Jul-2016 Instruction Type:Patient Education How to access health informa tion online - Detail Indication:Non-smoker Start:25-Jul-2016 Instruction Type:Patient Education Patient Instructions Indication:Non-smoker Start:25-Jul-2016 Instruction Type:Provider Instructions for Treatment Patient Instructions Indication:Low back pain Start:16-Mar-2015 Instruction Type:Provider Instructions for Treatment How to access health informa tion online Indication:Low back pain Start:23-Feb-2015 Instruction Type:Patient Education How to access health informa tion online - Detail Indication:Low back pain Start:23-Feb-2015 Instruction Type:Patient Education Patient Instructions Indication:Low back pain Start:23-Feb-2015 Instruction Type:Provider Instructions for Treatment Name Dates Details How to Access Health Informa tion Online using Patient Portal and [employer] Apps Indication:Non-smoker Start:25-May-2020 Instruction Type:Patient Education Patient Instructions Indication:Non-smoker Start:25-May-2020 Instruction Type:Provider Instructions for Treatment How to access health informa tion online Indication:Nausea Start:13-Mar-2020 Instruction Type:Patient Education How to access health informa tion online - Detail Indication:Nausea Start:13-Mar-2020 Instruction Type:Patient Education Patient Instructions Indication:Nausea Start:13-Mar-2020 Instruction Type:Provider Instructions for Treatment Patient Instructions Indication:Sinusitis, bacterial Start:13-Sep-2019 Instruction Type:Provider Instructions for Treatment How to access health informa tion online Indication:BMI 50.0-59.9, adult Start:06-Apr-2019 Instruction Type:Patient Education How to access health informa tion online - Detail Indication:BMI 50.0-59.9, adult Start:06-Apr-2019 Instruction Type:Patient Education Patient Instructions Indication:BMI 50.0-59.9, adult Start:06-Apr-2019 Instruction Type:Provider Instructions for Treatment How to access health informa tion online Indication:Non-smoker Start:25-Jul-2016 Instruction Type:Patient Education How to access health informa tion online - Detail Indication:Non-smoker Start:25-Jul-2016 Instruction Type:Patient Education Patient Instructions Indication:Non-smoker Start:25-Jul-2016 Instruction Type:Provider Instructions for Treatment Patient Instructions Indication:Low back pain Start:16-Mar-2015 Instruction Type:Provider Instructions for Treatment How to access health informa tion online Indication:Low back pain Start:23-Feb-2015 Instruction Type:Patient Education How to access health informa tion online - Detail Indication:Low back pain Start:23-Feb-2015 Instruction Type:Patient Education Patient Instructions Indication:Low back pain Start:23-Feb-2015 Instruction Type:Provider Instructions for Treatment Summary Purpose Advance Directives No Advanced Directives Records Found Advance Directive Response Recorded Date/ Time Living Will No September 02, 2022 1:14pm Power of Nursing Staffing Coordinator No September 02 1:14pm Chief Complaint and Reason for Visit Chief Complaint ABD PAIN Additional Source Comments (unrecognized sect ion and content) No Status Records FoundNo Status Records Found INFORMATION SOURCE (unrecogn ized section and content) DATE CREATED AUTHOR 07/12/2022 [facility] DATE CREATED AUTHOR AUTHOR'S ORGANIZ ATION 03/11/2025 [facility] Care Teams (unrecognized sec tion and content) Team Status: Active Member Role Status Dates Dr. Wendie Dawn DO Family Provider Active Dr. Wendie Dawn DO Primary Care Provider Active Team Status: Inactive Member Role Status Dates Dr. Wendie Dawn DO Primary Care Pr ovider, Attending Provider, Referring Provider Active Goals (unrecognized section and content) Goals may be documented in a n alternate section FOR RECORDS PERTAINING TO PATIENTS WHO ARE OR HAVE BEEN ENROLLED IN A CHEMICAL DEPENDENCY/SUBSTANCEABUSE PROGRAM, SOME INFORMATION MAY BE OMITTED. This clinical summary was aggregated from multiple sources. Caution should be exercised in using it in the provision of clinical care. This summary normalizes information from multiple sources, and as a consequence, information in this document may materially change the coding, format and clinical context of patient data. In addition, data may be omitted in some cases. CLINICAL DECISIONS SHOULD BE BASED ON THE PRIMARY CLINICAL RECORDS. [employer] provides no warranty or guarantee of the accuracy or completeness of information in this document.
[2025-03-18 18:08] LABS: PSA, Total 0.8 ng/mL (0.0-4.0)
== END | disposition home or self-care (01) ==
LOC: LAB 12:37
PROVIDERS: PCP Internal Medicine; Referring Provider Internal Medicine; Visit Provider Internal Medicine
DX: Z00.00 Encounter for general adult medical examination without abnormal findings (principal); Z12.5 Encounter for screening for malignant neoplasm of prostate
CPT/HCPCS: 36415; 80061; 82947; 84153

== ENCOUNTER → 2025-04-28 | Outpatient (CLI) | payer BC, SELFPAY ==
--- OUTSIDE RECORDS SUMMARY | 2025-04-29 07:41 | XMS RPT_ITS | CCD ---
Author Organization [facility] Care Team Providers Care Solution Design And Analysis Manager Name Role Phone López, Wendie Unavailable Jay Adams Unavailable Unavailable Laxmi Craig E Unavailable Unavailable Unavailable Herb, Edie Unavailable Unavailable Jason Sandy Unavailable Unavailable Heather Mock Unavailable Unavailable López DO, Wendie Unavailable Jackie SNELLER HAND, Radha Unavailable Unavailable Unavailable Unavailable Sabra Norman MD Unavailable [phone] López DO, Wendie Unavailable Slarb CHEMISTRY PHYSICS TEACHER, Jamila Unavailable Unavailable Sabra Norman MD Unavailable Alyce Garcias CNP Unavailable [phone] [place] SNELLER HAND, Kayela Unavailable Unavailable Herb CHEMISTRY PHYSICS TEACHER, Edie Unavailable Unavailable López DO, Wendie Attending Unavailable López DO, Wendie Referring Unavailable López DO, Wendie Consulting Unavailable Alice Pitts MA Unavailable Unavailable Robotham, Mallory Unavailable [place] CHEMISTRY PHYSICS TEACHER, Jorge L Unavailable Unavailable López, Wendie Referring Unavailable Alice Hester Attending Unavailable López, Wendie Primary Care Unavailable López, Wendie Referring Unavailable López, Wendie Primary Care Unavailable Robotham, Mallory Attending Unavailable López, Wendie Attending Unavailable López, Wendie Referring Unavailable López, Wendie Primary Care Unavailable López, Wendie Primary Care Unavailable Robotham, Mallory Attending Unavailable López, Wendie Referring Unavailable Leonardo Braswell Attending Unavailable López, Wendie Primary Care Unavailable Medications Completed/Discontinued Medications Medication Drug Class(es) Dates Sig (Normalized) Sig (Original) amoxicillin 875 mg / clavulanate 125 mg oral tablet (20 sources) Penicillin-class Antibacterial Start: 09-13-2019 End: 09-23-2019 take 1 tablet by mouth twice daily Amoxicillin-Pot Clavulanate 875-125 MG Oral Tablet 1 (one) Tablet bid for 10 days Quantity: 20 {Tablet} Refills: 0 Ordered: 13-Sep-2019 Wendie Dawn DO, DO, Kathleen Start : 13-Sep-2019 End : 23-Sep-2019 Inactive [...] Hyperosmolality and hypernatremia; Translations: [Hypernatremia] Resolved : 01-01-20 22 04-07-2019 Episodic Headache; including migraine (6 sources) Headache; [...] Bacterial sinusitis; Translations: [Sinusitis, bacterial] Resolved : 01-06-20 21 04-06-2019 Chronic Residual codes; unclassified (20 sources) Chill; [...] pain; Translations: [Low back pain] Resolved : 03-16-20 15 04-06-2019 Episodic Viral infection (17 sources) Disease caused [...] Test Name Value Interpretation Reference Range Facility Pulmonary Visit Reporton Pulmonary Visit Report [facility] [address] [place] [address] OFFICE VISIT Date of Service: 04/06/25 MR#: [id number] Acct: [id number] Name: LB CUEVA Rep #: [id number] : 1970 Provider: Alice Hester NP Age/Sex: 55/M Location: [facility] [place] [facility] Status: Signed Assessment and Plan Assessment and Plan (1) Obstructive sleep apnea: Status: Acute Plan: Patient carries a history of severe obstructive sleep apnea. He was last titrated in 2002. He has a device that is outdated and needs replaced. He has had weight gain in the recent past. He may require bilevel therapy versus CPAP therapy. I have recommended a titration at this time due to weight gain and the need to order a new device. Patient is unable to sleep without therapy. It is essential that he has device available to treat sleep apnea. He will follow-up in 10 weeks after he has completed the PAP titration and has received a new device. A compliance download should be available for the follow-up. (2) High blood pressure: Status: Chronic Qualifiers: Hypertension type: unspecified Qualified Code(s): I10 - Essential (primary) hypertension Plan: Patient was found to have high blood pressure on exam today. He does have a head ache as well. Denies chest pain, pressure, tightness. He reports a history of elevated pressures for which he is following with PCP. I have called PCP today and spoke with her nurse. He is unable to be evaluated at her office today so I have recommended ER. The patient declines this recommendation at this time. The rationale for ER evaluation was discussed with patient today. I have discussed the correlation between high blood pressure and sleep apnea with the patient today. Orders: Orders Polysomnography with PAP Today G47.33 - Obstructive sleep apnea (adult) (pediatric) Plan Details Additional Comments: This note was generated with Etacts dictation software. It may contain incorrect words, spelling, and punctuation that were not noted in checking the note before signing. Follow Up: 10 Weeks (LMR) HPI HPI Comments Details: Patient is a 55-year-old male who presents today to establish for sleep apnea. He is ambulatory and currently on room air. The patient underwent baseline PSG in 1994 and was diagnosed with DEYVI. This report is no longer available. There is a PAP titration report from 2002 which recommends CPAP of 10 cm. Comorbid conditions include hypertension, anxiety, obesity. 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 There is no family history of sleep apnea. He is a lifelong non-smoker. He has no history of pneumonia or chronic bronchitis. In the past he did follow with Dr. Zhou for management of sleep. He reports he is using his PAP device. He does feel rested upon awakening. He is not napping through the day. Nocturia does occur x 1. He is experiencing dry mouth. He does not snore. He will snore without using the machine. His mask does not leak. He is using a nose pillow. He does have concerns today about the functioning of his PAP device. His device is from the 90s. He is getting hose and mask online. He can tell its high because he has a headache. He does not use medication for his blood pressure. Intake Vital Signs 01/07/23 13:44 03/23/25 09:03 04/06/25 08:16 04/06/25 14:24 Height 5 ft 10 in 5 ft 10 in 5 ft 10 in Weight: 266 lb BMI 38.1 BP 181/104 H 177/111 H Blood Pressure Location Rt radial Rt brachial Position Sitting Sitting Respiration 20 H Pulse 97 Pulse Source Monitor Temp 97.6 F L Temperature Source Temporal Artery Pulse Oximetry (%) 96 Oxygen Delivery Method room air Intake Visit Reasons: Sleep apnea [facility] Manager Required: No DME Vendor: cpap-personal old one Accompanied by: Self Is patient in pain?: No Allergies No Known Allergies Allergy (Verified 04/06/25 13:38) Medications ???Medication ???Instructions ???Recorded ???Confirmed ???Type NK 01/07/23 04/06/25 History PFSH Medical History Abdominal pain History of change in bowel patterns Surgical History History of open reduction and internal fixation (ORIF) procedure Family History Grandmother Breast cancer Mother Cancer Lung Cancer CVA (cerebral vascular accident) Father Cancer Hypertension Brother Cancer Hypertension Social History Smoking Status: Never smoker alcohol intake: current alcohol intake frequency: a few times a week Alcohol type: hard liquor substance use type: does not use Questionnaire Campbell Sleepiness Scale Campbell Sleepiness Scale S (more content not included)... Normal [facility] Surgery Visit Reporton 03-23 Surgery Visit Report [facility] [address] [place] [address] OFFICE VISIT Date of Service: 03/23/25 MR#: [id number] Acct: [id number] Name: LB CUEVA Rep #: [id number] : 1970 Provider: Dr. Mallory desir MD Age/Sex: 55/M Location: [facility] Status: Signed Intake Vital Signs 01/07/23 13:44 03/23/25 09:03 Height 5 ft 10 in 5 ft 10 in Weight: 370 lb 8 oz BMI 53.1 BP 165/108 H Blood Pressure Location Rt brachial Position Sitting Respiration 17 Pulse 91 Pulse Source Monitor Pulse Oximetry (%) 97 Oxygen Delivery Method room air Intake Visit Reasons: ABDOMINAL PAIN, DIARRHEA/CONSTIPATION Chief Complaint: abdominal pain, diarrhea/constipation Is patient in pain?: No Allergies No Known Allergies Allergy (Verified 03/23/25 09:04) Medications ???Medication ???Instructions ???Recorded ???Confirmed ???Type NK 01/07/23 03/23/25 History PFSH Medical History (Updated 03/24/25 @ 12:[address] Mallory Capps MD) Abdominal pain History of change in bowel patterns Surgical History History of open reduction and internal fixation (ORIF) procedure Family History Grandmother Breast cancer Mother Cancer Lung Cancer CVA (cerebral vascular accident) Father Cancer Hypertension Brother Cancer Hypertension Social History Smoking Status: Never smoker alcohol intake: current alcohol intake frequency: a few times a week Alcohol type: hard liquor substance use type: does not use HPI HPI HPI: 55-year-old male presents due to constipation as well as screening colonoscopy. Patient states that he does have a cycle of constipation and loose stools or watery stools. Patient states he does go mostly every day denies any blood. Patient denies any family history of colon cancer. Patient denies any nausea or vomiting. Patient only gets reflux on occasion depending on the food he eats maybe once every month or so. Patient's never had previous colonoscopy. ROS General General: Yes fatigue; No weight change, appetite, colon cancer or breast cancer HEENT HEENT: No difficulty swallowing, eye injury, eye surgery, swollen glands or hoarseness Endo Endocrine: No thyroid disease, diabetes mellitus, thyroid cancer, Hair loss, heat intolerance or cold intolerance Skin Skin: No rash or changing moles Musc Musculoskeletal: Yes arthritis; No back problems, rheumatoid arthritis, gout or joint pain Cardio Cardiovascular: No murmur, pacemaker, heart disease, atrial fibrillation, high blood pressure, heart attack, heart stent, palpitations, shortness of breath with exertion or chest pain Psych Psychiatric: No depression, anxiety or hearing voices Resp Respiratory: No shortness of breath, Yes sleep apnea, No cough, No COPD, No asthma, No emphysema and No wheezing Gastro Gastrointestinal: Yes abdominal pain, No nausea or vomiting, Yes diarrhea, Yes constipation, No blood in stool, Yes acid reflux, No hemorrhoids, No ulcers, No gallbladder problem and No black,tarry stools Henri Hematologic: No blood thinners, No blood disorders, No bleeding, No anemia and No blood clots Neuro Neurologic: No numbness and No tingling Exam Const General: cooperative, healthy appearing, comfortable and no acute distress [facility] Head: normocephalic and atraumatic Neck Neck: supple Resp Effort Inspection: normal respiratory effort Cardio Rate: regular rate GI Inspection: non-distended Palpation: soft, hernia (Umbilical reducible) and nontender Skin General: no rashes or lesions noted Neuro General: CN's II-XI intact bilaterally Extrem General: normal to inspection Psych Mental Status: mental status grossly normal Attitude: cooperative Assessment and Plan Assessment and Plan (1) Change in bowel habits: Status: Acute (2) Encounter for screening for malignant neoplasm of colon: Status: Acute (3) Umbilical hernia: Status: Acute Qualifiers: Obstruction and gangrene presence: without obstruction or gangrene Qualified Code(s): K42.9 - Umbilical hernia without obstruction or gangrene Orders: Orders Colonoscopy 05/09/25 Plan Did review with patient importance of proper amount of fiber in his diet recommend 30 g daily. But to get there slowly. Did give patient as sheet going over this. Also discussed patient that if he does have pain in his umbilical site would recommend getting repair at that time. Currently it is reducible. I have discussed the above with the patient. I have offered the patient colonoscopy for evaluation. I have explained the risks/benefits of the procedure and described the procedure (more content not included)... Normal [facility] PSA Total (Rflx Free)on 02-24 COMMENT Comment Normal . [facility] Comment on above: Result Comment: The percent free PSA is performed on a reflex basis only when the total PSA is between 4.0 and 10.0 ng/mL. Performed at: [facility] [address] [id number] Mate Relief: Shelton Kumar PhD, Phone: [phone] Performed By: #### L 3110.0100, L501.0100, L500.4100 #### [facility] [address] [place], [place], [id number] PSA, TOTAL 0.8 ng/mL Normal 0.0-4.0 [facility] Comment on above: Result Comment: Sam black ECLIA methodology. According to the [place] [employer], Serum PSA should decrease and remain at undetectable levels after radical prostatectomy. The AUA defines biochemical recurrence as an initial PSA value 0.2 ng/mL or greater followed by a subsequent confirmatory PSA value 0.2 ng/mL or greater. Values obtained with different assay methods or kits cannot be used interchangeably. Results cannot be interpreted as absolute evidence of the presence or absence of malignant disease. Performed By: #### L 3110.0100, L501.0100, L500.4100 #### [facility] [address] [place], [place], [address] Glucoseon 03-17-2025 Glucose [Mass/Vol] 92 mg/dL Normal 70-99 [facility] Comment on above: Performed By: #### L 3110.0100, L501.0100, L500.4100 #### [facility] [address] [place], [address] Lipid Profileon 03-17-2025 CHOL:HDL 4.34 Normal [facility] Comment on above: Performed By: #### L 3110.0100, L501.0100, L500.4100 #### [facility] [address] [place], [address] Cholesterol [Mass/Vol] 206 mg/dL High <=200 [facility] Comment on above: Result Comment: Chol esterol level, Desirable <200 mg/dL Borderline high cholesterol 200-239 mg/dL High cholesterol >=240 mg/dL Recommendations of the NCEP Adult Treatment Panel for the following risk-cutoff thresholds for the [place] population. Performed By: #### L 3110.0100, L501.0100, L500.4100 #### [facility] [address] [place], [address] Cholesterol in HDL [Mass/Vol] 48 mg/dL Normal [facility] Comment on above: Result Comment: Karlene onal Cholesterol Education Program (NCEP) guidelines: <40 mg/dL: Low HDL-cholesterol (major risk factor for CHD) >= 60 mg/dL: High HDL-cholesterol (negative risk factor for CHD) HDL-cholesterol is affected by a number of factors, e.g. smoking, exercise, hormones, sex and age. Performed By: #### L 3110.0100, L501.0100, L500.4100 #### [facility] [address] [place], [address] Cholesterol in LDL [Mass/Vol] 128 mg/dL Normal [facility] Comment on above: Result Comment: Bord izozvl=703-916 mg/dL Higher Tzex=130 mg/dL or greater Hunter Equation 2020 for LDL-C Performed By: #### L 3110.0100, L501.0100, L500.4100 #### [facility] [address] [place], [place], [address] Cholesterol in VLDL [Mass/Vol] 35 mg/dL Normal 5-40 [facility] Comment on above: Performed By: #### L 3110.0100, L501.0100, L500.4100 #### [facility] [address] [place], [address] Triglyceride [Mass/Vol] 173 mg/dL Normal [facility] Comment on above: Result Comment: The drugs N-Acetylcysteine and Metamizole may falsely depress this assay. Normal range: <150 mg/dL Borderline High: 150-199 mg/dL High: 200-499 mg/dL Very High: >500 mg/dL Performed By: #### L 3110.0100, L501.0100, L500.4100 #### [facility] [address] [place], [place], [address] Urgent Care Visit Reporton 0 08-24-2024 Urgent Care Visit Report [facility] [address], [address] [place], [place] [address] OFFICE VISIT Date of Service: 08/24/24 MR#: [id number] Acct: [id number] Name: LB CUEVA Rep #: [id number] : 1970 Provider: INDERJIT Alexandra Age/Sex: 54/M Location: 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/ [facility] Accompanied by: Self Allergies No Known Allergies Allergy (Verified 08/24/24 12:47) Medications ???Medication ???Instructions ???Recorded ???Confirmed ???Type NK 01/07/23 08/24/24 [facility] (Updated 01/07/23 @ 14:14 by [...] (DOT): Status: Acute 08/24/24 1314 Date Leonardo Chow Signature: Date (if applicable) CC: Normal [facility] C-REACTIVE PROTEIN ([id number])Or dered By: Indigo Vat Tender Cloth on 12-17-2022 CRP [Mass/Vol] 12 mg/L Abnormal 0-10 Comprehens nini [facility]; [facility] Work Phone: Comment on above: PATIENT NOT FASTINGP ERFORMED BY: [id number] [facility] [id number] CBC W/AUTO DIFF WBC ([id number])O rdered By: Indigo Vat Tender Cloth on 12-17-2022 Basophils (Bld) [#/Vol] 0.1 10*3/uL Normal 0.0-0.2 [facility]; [facility] Work Phone: Comment on above: PATIENT NOT FASTINGP ERFORMED BY: [id number] Copyright AgentDosher [facility] [id number] Basophils/100 WBC (Bld) 1 % Normal [facility]; [facility] Work Phone: Comment on above: PATIENT NOT FASTINGP ERFORMED BY: CB [facility] [id number] RoadDublin [place] [id number] Eosinophils (Bld) [#/Vol] 0.3 10*3/uL Normal 0.0-0.4 [facility]; [facility] Work Phone: Comment on above: PATIENT NOT FASTINGP ERFORMED BY: CB [facility] Aszshk[address] RoadDublin [place] [id number] Eosinophils/100 WBC (Bld) 3 % Normal [facility]; [facility] Work Phone: Comment on above: PATIENT NOT FASTINGP ERFORMED BY: CB [facility] Wuffsk47[address] RoadDublin [place] [id number] Erythrocyte distribution width (RBC) [Ratio] 13.1 % Normal 11.6-15.4 [facility]; [facility] Work Phone: Comment on above: PATIENT NOT FASTINGP ERFORMED BY: CB [facility] Gbeffb220[address] RoadDublin [place] [id number] Hematocrit (Bld) [Volume fraction] 45.8 % Normal 37.5-51.0 [facility]; [facility] Work Phone: Comment on above: PATIENT NOT FASTINGP ERFORMED BY: CB [facility] Irkosw[address] RoadDublin [place] [id number] Hemoglobin (Bld) [Mass/Vol] 15.2 g/dL Normal 13.0-17.7 [facility]; [facility] Work Phone: Comment on above: PATIENT NOT FASTINGP ERFORMED BY: CB [facility] Hyylaj[address]Dublin [place] [id number] Immature granulocytes (Bld) [#/Vol] 0.1 10*3/uL Normal 0.0-0.1 [facility]; [facility] Work Phone: Comment on above: PATIENT NOT FASTINGP ERFORMED BY: CB [facility] [id number] RoadDublin [place] [id number] Immature granulocytes/100 WBC (Bld) 1 % Normal [facility]; [facility] Work Phone: Comment on above: PATIENT NOT FASTINGP ERFORMED BY: BILLIE White6[address]Dublin [place] [id number] Lymphocytes (Bld) [#/Vol] 2.3 10*3/uL Normal 0.7-3.1 [facility]; [facility] Work Phone: Comment on above: PATIENT NOT FASTINGP ERFORMED BY: BILLIE Labtheresa SchafferLtbbbv6[address]Dublin [place] [id number] Lymphocytes/100 WBC (Bld) 25 % Normal [facility]; [facility] Work Phone: Comment on above: PATIENT NOT FASTINGP ERFORMED BY: BILLIE Schafferlin[address] RoadFormerly Albemarle Hospitalin [place] [id number] MCH (RBC) [Entitic mass] 28.9 pg Normal 26.6-33.0 [facility]; [facility] Work Phone: Comment on above: PATIENT NOT FASTINGP ERFORMED BY: BILLIE [facility] Nyjnar[address] [facility] [place] [id number] MCHC (RBC) [Mass/Vol] 33.2 g/dL Normal 31.5-35.7 [facility]; [facility] Work Phone: Comment on above: PATIENT NOT FASTINGP ERFORMED BY: BILLIE Labarnulfo Kvtkyt[address] [facility] [place] [id number] MCV (RBC) [Entitic vol] 87 fL Normal 79-97 [facility]; [facility] Work Phone: Comment on above: PATIENT NOT FASTINGP ERFORMED BY: BILLIE [facility] Jjwkan[address]Dublin [place] [id number] Monocytes (Bld) [#/Vol] 0.9 10*3/uL Normal 0.1-0.9 [facility]; [facility] Work Phone: Comment on above: PATIENT NOT FASTINGP ERFORMED BY: CB [facility] Kiwzcg[address] RoadDublin [place] [id number] Monocytes/100 WBC (Bld) 10 % Normal [facility]; [facility] Work Phone: Comment on above: PATIENT NOT FASTINGP ERFORMED BY: CB [facility] [id number] RoadDublin [place] [id number] Neutrophils (Bld) [#/Vol] 5.6 10*3/uL Normal 1.4-7.0 [facility]; [facility] Work Phone: Comment on above: PATIENT NOT FASTINGP ERFORMED BY: CB [facility] Odropd[address]Dublin [place] [id number] Neutrophils/100 WBC (Bld) 60 % Normal [facility]; [facility] Work Phone: Comment on above: PATIENT NOT FASTINGP ERFORMED BY: CB [facility] Uwkkgr[address]Dublin [place] [id number] Platelets (Bld) [#/Vol] 239 10*3/uL Normal 150-450 [facility]; [facility] Work Phone: Comment on above: PATIENT NOT FASTINGP ERFORMED BY: CB [facility] Nevmxt[address]Dublin [place] [id number] RBC (Bld) [#/Vol] 5.26 10*6/uL Normal 4.14-5.80 Compr [facility]; [facility] Work Phone: Comment on above: PATIENT NOT FASTINGP ERFORMED BY: CB [facility] Fsgvmy[address]Dublin [place] [id number] WBC (Bld) [#/Vol] 9.3 10*3/uL Normal 3.4-10.8 [facility]; [facility] Work Phone: Comment on above: PATIENT NOT FASTINGP ERFORMED BY: CB [facility] Vrctks[address]Dublin [place] [id number] METABOLIC PANEL, COMPREHENSI VE ([id number])Ordered By: Indigo Vat Tender Cloth on 12-17-2022 Albumin [Mass/Vol] 4.3 g/dL Normal 3.8-4.9 [facility]; [facility] Work Phone: Comment on above: PATIENT NOT FASTINGP ERFORMED BY: BILLIE [facility] [id number]Dublin [place] [id number] Albumin/Globulin [Mass ratio] 1.4 {ratio} Normal 1.2-2.2 [facility]; [facility] Work Phone: Comment on above: PATIENT NOT FASTINGP ERFORMED BY: CB [facility] [id number]Dublin [place] [id number] ALP [Catalytic activity/Vol] 120 U/L Normal 44-121 [facility]; [facility] Work Phone: Comment on above: PATIENT NOT FASTINGP ERFORMED BY: CB [facility] [id number] RoadDublin [place] [id number] ALT [Catalytic activity/Vol] 31 U/L Normal 0-44 [facility]; [facility] Work Phone: Comment on above: PATIENT NOT FASTINGP ERFORMED BY: CB [facility] Epvppx9[address] RoadDublin [place] [id number] AST [Catalytic activity/Vol] 30 U/L Normal 0-40 [facility]; [facility] Work Phone: Comment on above: PATIENT NOT FASTINGP ERFORMED BY: BILLIE [facility] Jhgepz84[address] RoadDublin [place] [id number] Bilirubin [Mass/Vol] 0.7 mg/dL Normal 0.0-1.2 Comp rehensive Internal Medicine; [facility] Work Phone: Comment on above: PATIENT NOT FASTINGP ERFORMED BY: CB [facility] Abspme[address]Dublin [place] [id number] Calcium [Mass/Vol] 9.5 mg/dL Normal 8.7-10.2 [facility]; [facility] Work Phone: Comment on above: PATIENT NOT FASTINGP ERFORMED BY: CB [facility] Yrycbl[address]Dublin [place] [id number] Chloride [Moles/Vol] 102 mmol/L Normal 96-106 Comp rehensive [facility]; [facility] Work Phone: Comment on above: PATIENT NOT FASTINGP ERFORMED BY: BILLIE [facility] [id number]Dublin [place] [id number] CO2 [Moles/Vol] 23 mmol/L Normal 20-29 [facility]; [facility] Work Phone: Comment on above: PATIENT NOT FASTINGP ERFORMED BY: CB [facility] Xsxiab0008 [address] RoadDublin [place] [id number] Creatinine [Mass/Vol] 1.03 mg/dL Normal 0.76-1.27 [facility]; [facility] Work Phone: Comment on above: PATIENT NOT FASTINGP ERFORMED BY: BILLIE [facility] Vqvqet8997 [address] RoadDublin [place] [id number] GFR/1.73 sq M.predicted among non-blacks MDRD (S/P/Bld) [Vol rate/Area] 86 mL/min/{1.73_m2} Normal Comprehensiv e Internal Medicine; [facility] Work Phone: Comment on above: PATIENT NOT FASTINGP ERFORMED BY: BILLIE [facility] Wnmiuf4976 [address] RoadDublin [place] [id number] Globulin (S) [Mass/Vol] 3.0 g/dL Normal 1.5-4.5 [facility]; [facility] Work Phone: Comment on above: PATIENT NOT FASTINGP ERFORMED BY: CB [facility] Cffoyj0534 [address] RoadDublin [place] [id number] Glucose [Mass/Vol] 90 mg/dL Normal 70-99 [facility] Internal Medicine; [facility] Work Phone: Comment on above: PATIENT NOT FASTINGP ERFORMED BY: CB [facility] Fxrlzw4503 [address] RoadDublin [place] [id number] Potassium [Moles/Vol] 4.8 mmol/L Normal 3.5-5.2 [facility]; [facility] Work Phone: Comment on above: PATIENT NOT FASTINGP ERFORMED BY: CB [facility] Pxxixm4032 [address] RoadDublin [place] [id number] Protein [Mass/Vol] 7.3 g/dL Normal 6.0-8.5 [facility] Internal Medicine; [facility] Work Phone: Comment on above: PATIENT NOT FASTINGP ERFORMED BY: BILLIE [facility] SchafferPkzvhu7351 [address] RoadDublin [place] [id number] Sodium [Moles/Vol] 141 mmol/L Normal 134-144 [facility] Internal Medicine; [facility] Work Phone: Comment on above: PATIENT NOT FASTINGP ERFORMED BY: BILLIE [facility] SchafferSwvijv3666 [address] RoadDublin [place] [id number] Urea nitrogen [Mass/Vol] 15 mg/dL Normal 6-24 [facility]; [facility] Work Phone: Comment on above: PATIENT NOT FASTINGP ERFORMED BY: BILLIE [facility] Dgnyny1919 [address] RoadDublin [place] [id number] Urea nitrogen/Creatinine [Mass ratio] 15 mg/mg Normal 9-20 [facility]; [facility] Work Phone: Comment on above: PATIENT NOT FASTINGP ERFORMED BY: BILLIE [facility] SchafferDsjngj7220 [address] RoadDublin [place] [id number] MICROALBUMINOrdered By: Syst em Clinical Sales Consultant on 12-17-2022 Albumin DL <= 20 mg/L (U) [Mass/Vol] 7.6 ug/mL Normal Comprehensiv e Internal Medicine; [facility] Work Phone: Comment on above: PATIENT NOT FASTINGP ERFORMED BY: BILLIE [facility] Zxsfha1311 [address]Dublin [place] [id number] Albumin/Creatinine (U) [Mass ratio] 5 {mg/g_creat} Normal 0-29 [facility]; [facility] Work Phone: Comment on above: Normal: 0 - 29 Moder ately increased: 30 - 300 Severely increased: >300 PATIENT NOT FASTINGP ERFORMED BY: BILLIE [facility] Qmaphd2690 [address] RoadDublin [place] [id number] Creatinine (U) [Mass/Vol] 156.3 mg/dL Normal [facility]; [facility] Work Phone: Comment on above: PATIENT NOT FASTINGP ERFORMED BY: BILLIE [facility] Apzmxs7681 [address] RoadDublin [place] [id number] Sed Rate Erythrocyte (19953) Ordered By: Indigo Vat Tender Cloth on 12-17-2022 ESR (Bld) [Velocity] 27 mm/h Normal 0-30 Comp rehensive Internal Medicine; [facility] Work Phone: Comment on above: PATIENT NOT FASTINGP ERFORMED BY: BILLIE [facility] Lnjcxt4716 [address] RoadDublin [place] [id number] TSH ([id number])Ordered By: Albumatic m Clinical Sales Consultant on 12-17-2022 TSH Qn 1.580 {uIU/mL} Normal 0.450-4.50 0 [facility]; [facility] Work Phone: Comment on above: PATIENT NOT FASTINGP ERFORMED BY: BILLIE [facility] Wqhpsd1855 [address] RoadDublin [place] [id number] URINALYSIS, W/ MICRO (40095) Ordered By: Indigo Vat Tender Cloth on 12-17-2022 Appearance (U) Clear Normal Comprehens nini Internal Medicine; [facility] Work Phone: Comment on above: PATIENT NOT FASTINGP ERFORMED BY: BILLIE [facility] Eghsgp9524 [address] RoadDublin [place] [id number] Bilirubin Ql (U) Negative Normal Comprehe nsive Internal Medicine; [facility] Work Phone: Comment on above: PATIENT NOT FASTINGP ERFORMED BY: CB [facility] Yftgfx6668 [address] RoadDublin [place] [id number] Color (U) Yellow Normal [facility]; [facility] Work Phone: Comment on above: PATIENT NOT FASTINGP ERFORMED BY: CB [facility] Twwhhl4364 [address] RoadDublin [place] [id number] Glucose Ql (U) Negative Normal Comprehens nini Internal Medicine; [facility] Work Phone: Comment on above: PATIENT NOT FASTINGP ERFORMED BY: CB [facility] Wlwfbz2579 [address] RoadDublin [place] [id number] Hemoglobin Ql (U) Negative Normal Compreh ensive Internal Medicine; [facility] Work Phone: Comment on above: PATIENT NOT FASTINGP ERFORMED BY: BILLIE [facility] WhiteYjbddd0510 [address]Dublin [place] [id number] Ketones Ql (U) Negative Normal Comprehens nini Internal Medicine; [facility] Work Phone: Comment on above: PATIENT NOT FASTINGP ERFORMED BY: BILLIE [facility] Izvreb7629 [address] RoadDublin [place] [id number] Leukocyte esterase Test strip Ql (U) Negative Normal [facility]; [facility] Work Phone: Comment on above: PATIENT NOT FASTINGP ERFORMED BY: BILLIE [facility] Qniove2236 [address] RoadDublin [place] [id number] Microscopic observation LM Nom (Urine sed) MICRON Normal [facility]; [facility] Work Phone: Comment on above: Microscopic follows if indicated. PATIENT NOT FASTINGP ERFORMED BY: BILLIE [facility] Guwqrx4627 [address] RoadDublin [place] [id number] Microscopic observation LM Nom (Urine sed) See below: Normal [facility]; [facility] Work Phone: Comment on above: Microscopic was delores cated and was performed. PATIENT NOT FASTINGP ERFORMED BY: BILLIE [facility] Hidyad6651 [address] RoadDublin [place] [id number] Nitrite Ql (U) Negative Normal Comprehens nini Internal Medicine; [facility] Work Phone: Comment on above: PATIENT NOT FASTINGP ERFORMED BY: BILLIE [facility] Igjffs4887 [address] [facility] MichiganD[place] [id number] pH (U) 7.5 [pH] Normal 5.0-7.5 [facility]; [facility] Work Phone: Comment on above: PATIENT NOT FASTINGP ERFORMED BY: BILLIE [facility] Ofrzox4914 [address] RoadDublin [place] [id number] Protein Ql (U) Negative Normal Comprehens nini Internal Medicine; [facility] Work Phone: Comment on above: PATIENT NOT FASTINGP ERFORMED BY: BILLIE [facility] Uctufl6558 [address] [facility] HousingQuorum Health [id number] Specific gravity (U) [Rel density] 1.022 1 Normal 1.005-1.03 0 [facility]; [facility] Work Phone: Comment on above: PATIENT NOT FASTINGP ERFORMED BY: [facility] Ukympd2766 [facility] [id number] Urobilinogen (U) [Mass/Vol] 0.2 mg/dL Normal 0.2-1.0 [facility]; [facility] Work Phone: Comment on above: PATIENT NOT FASTINGP ERFORMED BY: [facility] Aplpzj2918 [facility] [id number] INHOUSE COVID 19 (ONLY) RAPI D ([id number])Ordered By: Alice Pitts on 07-12-2022 SARS-CoV-2 (COVID-19) RNA KRISTY+probe Ql (Unsp spec) Negative Normal [facility]; [facility] Work Phone: Inhouse FLU A+B DIRECT AG, ( RAPID) ([id number])Ordered By: Alice Pitts on 07-12-2022 FLUAV+FLUBV Ag Ql (Unsp spec) Negative Normal [facility]; [facility] Work Phone: CBC, PLATELETS & MANUAL DIFF (14952)Ordered By: Indigo Vat Tender Cloth on 01-01-2022 Basophils (Bld) [#/Vol] 0.1 10*3/uL Normal 0.0-0.2 [facility]; [facility] Work Phone: Comment on above: PATIENT NOT FASTINGP ERFORMED BY: [facility] Vfyowc7[address] [facility] [id number] Basophils/100 WBC (Bld) 1 % Normal [facility]; [facility] Work Phone: Comment on above: PATIENT NOT FASTINGP ERFORMED BY: [facility] Sxpxdb5808 [address] [facility] [id number] Eosinophils (Bld) [#/Vol] 0.2 10*3/uL Normal 0.0-0.4 [facility]; [facility] Work Phone: Comment on above: PATIENT NOT FASTINGP ERFORMED BY: BILLIE [facility] WhiteSbfiwk5849 [address] RoadDublin [place] [id number] Eosinophils/100 WBC (Bld) 3 % Normal [facility]; [facility] Work Phone: Comment on above: PATIENT NOT FASTINGP ERFORMED BY: CB [facility] Xqmlre5366 [address] RoadDublin [place] [id number] Erythrocyte distribution width (RBC) [Ratio] 13.1 % Normal 11.6-15.4 [facility]; [facility] Work Phone: Comment on above: PATIENT NOT FASTINGP ERFORMED BY: BILLIE [facility] Bnidtv6534 [address] RoadDublin [place] [id number] Hematocrit (Bld) [Volume fraction] 47.8 % Normal 37.5-51.0 [facility]; [facility] Work Phone: Comment on above: PATIENT NOT FASTINGP ERFORMED BY: CB [facility] Gztfsx1933 [address]Dublin [place] [id number] Hemoglobin (Bld) [Mass/Vol] 15.8 g/dL Normal 13.0-17.7 [facility]; [facility] Work Phone: Comment on above: PATIENT NOT FASTINGP ERFORMED BY: CB [facility] Woxons0795 [address] RoadDublin [place] [id number] Immature granulocytes (Bld) [#/Vol] 0.1 10*3/uL Normal 0.0-0.1 [facility]; [facility] Work Phone: Comment on above: PATIENT NOT FASTINGP ERFORMED BY: CB [facility] Paxfaz8235 [address] RoadDublin [place] [id number] Immature granulocytes/100 WBC (Bld) 1 % Normal [facility]; [facility] Work Phone: Comment on above: PATIENT NOT FASTINGP ERFORMED BY: CB [facility] Cdgiot7867 [address] RoadDublin [place] [id number] Lymphocytes (Bld) [#/Vol] 2.7 10*3/uL Normal 0.7-3.1 [facility]; [facility] Work Phone: Comment on above: PATIENT NOT FASTINGP ERFORMED BY: BILLIE [facility] Iiumsa0082 [address] RoadDublin [place] [id number] Lymphocytes/100 WBC (Bld) 29 % Normal [facility]; [facility] Work Phone: Comment on above: PATIENT NOT FASTINGP ERFORMED BY: CB [facility] Gdkrjx6250 [address] RoadDublin [place] [id number] MCH (RBC) [Entitic mass] 28.8 pg Normal 26.6-33.0 [facility]; [facility] Work Phone: Comment on above: PATIENT NOT FASTINGP ERFORMED BY: BILLIE [facility] Efjwez8605 [address] RoadDublin [place] [id number] MCHC (RBC) [Mass/Vol] 33.1 g/dL Normal 31.5-35.7 [facility]; [facility] Work Phone: Comment on above: PATIENT NOT FASTINGP ERFORMED BY: BILLIE [facility] Wuilnf5708 [address] RoadDublin [place] [id number] MCV (RBC) [Entitic vol] 87 fL Normal 79-97 [facility]; [facility] Work Phone: Comment on above: PATIENT NOT FASTINGP ERFORMED BY: CB [facility] Eqpmbn3985 [address] RoadDublin [place] [id number] Monocytes (Bld) [#/Vol] 1.0 10*3/uL Abnormal 0.1-0.9 [facility]; [facility] Work Phone: Comment on above: PATIENT NOT FASTINGP ERFORMED BY: CB [facility] Tbzybf8719 [address] RoadDublin [place] [id number] Monocytes/100 WBC (Bld) 10 % Normal [facility]; [facility] Work Phone: Comment on above: PATIENT NOT FASTINGP ERFORMED BY: CB [facility] Kytctv8759 [address] RoadDublin [place] [id number] Neutrophils (Bld) [#/Vol] 5.2 10*3/uL Normal 1.4-7.0 [facility]; [facility] Work Phone: Comment on above: PATIENT NOT FASTINGP ERFORMED BY: BILLIE [facility] WhiteTpusxf8971 [address] RoadDublin [place] [id number] Neutrophils/100 WBC (Bld) 56 % Normal [facility]; [facility] Work Phone: Comment on above: PATIENT NOT FASTINGP ERFORMED BY: CB [facility] Dtergm5678 [address] RoadDublin [place] [id number] Platelets (Bld) [#/Vol] 220 10*3/uL Normal 150-450 [facility]; [facility] Work Phone: Comment on above: PATIENT NOT FASTINGP ERFORMED BY: BILLIE [facility] Pzjutv4885 [address] RoadDublin [place] [id number] RBC (Bld) [#/Vol] 5.49 10*6/uL Normal 4.14-5.80 [facility]; [facility] Work Phone: Comment on above: PATIENT NOT FASTINGP ERFORMED BY: BILLIE [facility] Ekpbkr3376 [address] RoadDublin [place] [id number] WBC (Bld) [#/Vol] 9.2 10*3/uL Normal 3.4-10.8 [facility]; [facility] Work Phone: Comment on above: PATIENT NOT FASTINGP ERFORMED BY: CB [facility] Orizxu4255 [address] RoadDublin [place] [id number] LIPID PANEL (25461)Ordered B y: Indigo Vat Tender Cloth on 01-01-2022 Cholesterol [Mass/Vol] 230 mg/dL Abnormal 100-199 [facility]; [facility] Work Phone: Comment on above: PATIENT NOT FASTINGP ERFORMED BY: BILLIE [facility] Eapccs6200 [address] RoadDublin [place] [id number] Cholesterol in HDL [Mass/Vol] 45 mg/dL Normal [facility]; [facility] Work Phone: Comment on above: PATIENT NOT FASTINGP ERFORMED BY: BILLIE [facility] Glmvtf4279 [address] RoadDublin [place] [id number] Triglyceride [Mass/Vol] 182 mg/dL Abnormal 0-149 [facility]; [facility] Work Phone: Comment on above: PATIENT NOT FASTINGP ERFORMED BY: BILLIE [facility] Snoels3794 [address] RoadDublin [place] [id number] LIPID PANEL (52519) 33 mg/dL Normal 5-40 [facility]; [facility] Work Phone: Comment on above: PATIENT NOT FASTINGP ERFORMED BY: CB [facility] Tspayy4720 [address] RoadDublin [place] [id number] LIPID PANEL (19414) 152 mg/dL Abnormal 0-99 [facility] Internal Medicine; [facility] Work Phone: Comment on above: PATIENT NOT FASTINGP ERFORMED BY: BILLIE [facility] SchafferJezimi9108 [address]blin [place] [id number] LIPID PANEL (26017) 3.4 {ratio} Normal 0.0-3.6 [facility] Internal Medicine; [facility] Work Phone: Comment on above: LDL/HDL Ratio Men Wo men 1/2 Avg.Risk 1.0 1.5 Avg.Risk 3.6 3.2 2X Avg.Risk 6.2 5.0 3X Avg.Risk 8.0 6.1 PATIENT NOT FASTINGP ERFORMED BY: BILLIE [facility] Zkhrol5[address] [facility]bl[facility] [place] [id number] METABOLIC PANEL, COMPREHENSI VE (77706)Ordered By: Indigo Vat Tender Cloth on 01-01-2022 Albumin [Mass/Vol] 4.6 g/dL Normal 3.8-4.9 [facility] Internal Medicine; [facility] Work Phone: Comment on above: PATIENT NOT FASTINGP ERFORMED BY: BILLIE [facility] Mlftvz6823 [address] RoadDublin [place] [id number] Albumin/Globulin [Mass ratio] 1.6 {ratio} Normal 1.2-2.2 [facility]; [facility] Work Phone: Comment on above: PATIENT NOT FASTINGP ERFORMED BY: CB [facility] Weyted7170 [address] RoadDublin [place] [id number] ALP [Catalytic activity/Vol] 114 U/L Normal 44-121 [facility]; [facility] Work Phone: Comment on above: PATIENT NOT FASTINGP ERFORMED BY: CB [facility] Winxqt4583 [address] RoadDublin [place] [id number] ALT [Catalytic activity/Vol] 37 U/L Normal 0-44 [facility]; [facility] Work Phone: Comment on above: PATIENT NOT FASTINGP ERFORMED BY: CB [facility] Sjzjez7446 [address] RoadDublin [place] [id number] AST [Catalytic activity/Vol] 36 U/L Normal 0-40 [facility]; [facility] Work Phone: Comment on above: PATIENT NOT FASTINGP ERFORMED BY: CB [facility] Sjjgsn7731 [address] RoadDublin [place] [id number] Bilirubin [Mass/Vol] 0.9 mg/dL Normal 0.0-1.2 Comp rehensive Internal Medicine; [facility] Work Phone: Comment on above: PATIENT NOT FASTINGP ERFORMED BY: CB [facility] SchafferKosieg3753 [address] RoadDublin [place] [id number] Calcium [Mass/Vol] 10.0 mg/dL Normal 8.7-10.2 [facility]; [facility] Work Phone: Comment on above: PATIENT NOT FASTINGP ERFORMED BY: CB [facility] Yahyji2046 [address] RoadDublin [place] [id number] Chloride [Moles/Vol] 99 mmol/L Normal 96-106 Comp rehensive Internal Medicine; [facility] Work Phone: Comment on above: PATIENT NOT FASTINGP ERFORMED BY: CB [facility] Zhklmx7860 [address] RoadDublin [place] [id number] CO2 [Moles/Vol] 23 mmol/L Normal 20-29 [facility]; [facility] Work Phone: Comment on above: PATIENT NOT FASTINGP ERFORMED BY: BILLIE [facility] Kaiuci8318 [address] RoadDublin [place] [id number] Creatinine [Mass/Vol] 1.07 mg/dL Normal 0.76-1.27 [facility]; [facility] Work Phone: Comment on above: PATIENT NOT FASTINGP ERFORMED BY: CB [facility] Zzyyjh4646 [address] RoadDublin [place] [id number] GFR/1.73 sq M.predicted among non-blacks MDRD (S/P/Bld) [Vol rate/Area] 83 mL/min/{1.73_m2} Normal Comprehensiv e Internal Medicine; [facility] Work Phone: Comment on above: PATIENT NOT FASTINGP ERFORMED BY: BILLIE [facility] Vbukva8582 [address] RoadDublin [place] [id number] Globulin (S) [Mass/Vol] 2.9 g/dL Normal 1.5-4.5 [facility]; [facility] Work Phone: Comment on above: PATIENT NOT FASTINGP ERFORMED BY: CB [facility] Bvsjuu2972 [address] RoadDublin [place] [id number] Glucose [Mass/Vol] 86 mg/dL Normal 65-99 [facility]; [facility] Work Phone: Comment on above: PATIENT NOT FASTINGP ERFORMED BY: CB [facility] Hccufh9702 [address] RoadDublin [place] [id number] Potassium [Moles/Vol] 5.1 mmol/L Normal 3.5-5.2 [facility]; [facility] Work Phone: Comment on above: PATIENT NOT FASTINGP ERFORMED BY: CB [facility] Eyjanw9333 [address] RoadDublin [place] [id number] Protein [Mass/Vol] 7.5 g/dL Normal 6.0-8.5 [facility] Internal Medicine; [facility] Work Phone: Comment on above: PATIENT NOT FASTINGP ERFORMED BY: CB [facility] Lmdkzy1321 [address] RoadDublin [place] [id number] Sodium [Moles/Vol] 138 mmol/L Normal 134-144 Compre [facility] Internal Medicine; [facility] Work Phone: Comment on above: PATIENT NOT FASTINGP ERFORMED BY: [facility] [facility] [id number] Urea nitrogen [Mass/Vol] 13 mg/dL Normal 6-24 [facility]; [facility] Work Phone: Comment on above: PATIENT NOT FASTINGP ERFORMED BY: [facility] [facility] [id number] Urea nitrogen/Creatinine [Mass ratio] 12 mg/mg Normal 9-20 [facility]; [facility] Work Phone: Comment on above: PATIENT NOT FASTINGP ERFORMED BY: [place] [id number] [facility] [id number] TSH (THYROID STIMULATING HOR REGLA) ([id number])Ordered By: Indigo Vat Tender Cloth on 01-01-2022 TSH Qn 2.230 {uIU/mL} Normal 0.450-4.50 0 [facility]; [facility] Work Phone: Comment on above: PATIENT NOT FASTINGP ERFORMED BY: [place] [id number] [facility] [id number] INHOUSE COVID 19 (ONLY) RAPI D (56366)on 06-19-2021 SARS-CoV-2 (COVID-19) RNA KRISTY+probe Ql (Unsp spec) Positive Normal [facility]; [facility] Work Phone: 2018 Novel Coronavirus (COVI D-19), KRISTY (09944)Ordered By: Indigo Vat Tender Cloth on 05-25-20202018 Novel Coronavirus (COVID-19), KRISTY (99595) Not Detected Normal [facility]; [facility] Work Phone: Comment on above: This nucleic acid am plification test was developed and its performancecharacteristics determined by [employer]. Nucleic acidamplification tests include PCR and TMA. [...] assay. PATIENT NOT FASTINGP ERFORMED BY: BILLIE [email or web address] Dlflbb1776 [facility] [id number] 2018 Novel Coronavirus (COVID-19), KRISTY (97338) Not detected Normal [facility]; [facility] Work Phone: Comment on above: This nucleic acid am plification test was developed and its performancecharacteristics determined by [employer]. Nucleic acidamplification tests include PCR and TMA. [...] PATIENT NOT FASTINGP ERFORMED BY: CB [facility] Pyxqaf5845 [address]Dublin [place] [id number] CBC, Platelets & Auto Diff ( [id number])Ordered By: Indigo Vat Tender Cloth on 04-06-2019 Basophils (Bld) [#/Vol] 0.1 {x10E3/uL} Normal 0.0-0.2 [facility] Work Phone: Comment on above: PATIENT NOT FASTINGP ERFORMED BY: CB [facility] Jmklgk9258 [address]blin [place] [id number] Basophils (Bld) [#/Vol] 0.1 10*3/uL Normal 0.0-0.2 [facility]; [facility] Work Phone: Comment on above: PATIENT NOT FASTINGP ERFORMED BY: [facility] Xmyetr4777 [address] RoadFormerly Albemarle Hospitalin [place] [id number] Basophils/100 WBC (Bld) 1 % Normal [facility] Work Phone: Comment on above: PATIENT NOT FASTINGP ERFORMED BY: [facility] Fidtxc[address] [facility]in [place] [id number] Eosinophils (Bld) [#/Vol] 0.3 {x10E3/uL} Normal 0.0-0.4 [facility] Work Phone: Comment on above: PATIENT NOT FASTINGP ERFORMED BY: [facility] Addhxf[address] [facility]bl[facility] [place] [id number] Eosinophils (Bld) [#/Vol] 0.3 10*3/uL Normal 0.0-0.4 [facility]; [facility] Work Phone: Comment on above: PATIENT NOT FASTINGP ERFORMED BY: CB [facility] Rxfjap[address] [facility]bl[facility] [place] [id number] Eosinophils/100 WBC (Bld) 4 % Normal [facility] Work Phone: Comment on above: PATIENT NOT FASTINGP ERFORMED BY: CB [facility] Pvtsbw3443 [address] [facility] Hospitalbl[facility] [place] [id number] Erythrocyte distribution width (RBC) [Ratio] 14.8 % Normal 12.3-15.4 [facility] Work Phone: Comment on above: PATIENT NOT FASTINGP ERFORMED BY: BILLIE White6370 [address] RoadDublin [place] [id number] Hematocrit (Bld) [Volume fraction] 48.7 % Normal 37.5-51.0 [facility] Work Phone: Comment on above: PATIENT NOT FASTINGP ERFORMED BY: CB [facility] Wkaatf2457 [address] RoadDublin [place] [id number] Hemoglobin (Bld) [Mass/Vol] 16.1 g/dL Normal 13.0-17.7 [facility] Work Phone: Comment on above: PATIENT NOT FASTINGP ERFORMED BY: BILLIE SánchezCoines SchafferOwpklf5680 [address] Roadblin [place] [id number] Immature granulocytes (Bld) [#/Vol] 0.1 {x10E3/uL} Normal 0.0-0.1 [facility] Work Phone: Comment on above: PATIENT NOT FASTINGP ERFORMED BY: BILLIE [facility] Qfzwuh2783 [address]blin [place] [id number] Immature granulocytes (Bld) [#/Vol] 0.1 10*3/uL Normal 0.0-0.1 [facility]; [facility] Work Phone: Comment on above: PATIENT NOT FASTINGP ERFORMED BY: BILLIE [facility] Jwymui1018 [address] RoadDublin [place] [id number] Immature granulocytes/100 WBC (Bld) 1 % Normal [facility] Work Phone: Comment on above: PATIENT NOT FASTINGP ERFORMED BY: CB [facility] [id number] [address]Dublin [place] [id number] Lymphocytes (Bld) [#/Vol] 2.3 {x10E3/uL} Normal 0.7-3.1 [facility] Work Phone: Comment on above: PATIENT NOT FASTINGP ERFORMED BY: CB [facility] [id number] [address] RoadDublin [place] [id number] Lymphocytes (Bld) [#/Vol] 2.3 10*3/uL Normal 0.7-3.1 [facility]; [facility] Work Phone: Comment on above: PATIENT NOT FASTINGP ERFORMED BY: BILLIE [facility] SchafferXccoev5[address]blin [place] [id number] Lymphocytes/100 WBC (Bld) 30 % Normal [facility] Work Phone: Comment on above: PATIENT NOT FASTINGP ERFORMED BY: CB [facility] [id number] [address] [facility] [id number] MCH (RBC) [Entitic mass] 28.4 pg Normal 26.6-33.0 [facility] Work Phone: Comment on above: PATIENT NOT FASTINGP ERFORMED BY: [facility] [id number] [address] [facility] [id number] MCHC (RBC) [Mass/Vol] 33.1 g/dL Normal 31.5-35.7 [facility] Work Phone: Comment on above: PATIENT NOT FASTINGP ERFORMED BY: [facility] Pdtpla2708 [address] [facility] [id number] MCV (RBC) [Entitic vol] 86 fL Normal 79-97 [facility] Work Phone: Comment on above: PATIENT NOT FASTINGP ERFORMED BY: [facility] Ljxfkq6924 [facility] [facility] [id number] Monocytes (Bld) [#/Vol] 0.5 {x10E3/uL} Normal 0.1-0.9 [facility] Work Phone: Comment on above: PATIENT NOT FASTINGP ERFORMED BY: CB [facility] [id number] [address] [facility]D[place] [id number] Monocytes (Bld) [#/Vol] 0.5 10*3/uL Normal 0.1-0.9 [facility]; [facility] Work Phone: Comment on above: PATIENT NOT FASTINGP ERFORMED BY: CB [facility] Cnusbp2424 [facility] [facility] [id number] Monocytes/100 WBC (Bld) 7 % Normal [facility] Work Phone: Comment on above: PATIENT NOT FASTINGP ERFORMED BY: CB [facility] Lrbzeq4595 [address]Dublin [place] [id number] Neutrophils (Bld) [#/Vol] 4.4 {x10E3/uL} Normal 1.4-7.0 [facility] Work Phone: Comment on above: PATIENT NOT FASTINGP ERFORMED BY: CB [facility] Yzpdrm4121 [address]Dublin [place] [id number] Neutrophils (Bld) [#/Vol] 4.4 10*3/uL Normal 1.4-7.0 [facility]; [facility] Work Phone: Comment on above: PATIENT NOT FASTINGP ERFORMED BY: CB [facility] [id number] [address]Dublin [place] [id number] Neutrophils/100 WBC (Bld) 57 % Normal [facility] Work Phone: Comment on above: PATIENT NOT FASTINGP ERFORMED BY: CB [facility] Rxkccb3630 [address] RoadDublin [place] [id number] Platelets (Bld) [#/Vol] 252 {x10E3/uL} Normal 150-450 [facility] Work Phone: Comment on above: PATIENT NOT FASTINGP ERFORMED BY: CB [facility] Noycjb3916 [address] RoadDublin [place] [id number] Platelets (Bld) [#/Vol] 252 10*3/uL Normal 150-450 [facility]; [facility] Work Phone: Comment on above: PATIENT NOT FASTINGP ERFORMED BY: CB [facility] Rculqb2433 [address] RoadDublin [place] [id number] RBC (Bld) [#/Vol] 5.67 {x10E6/uL} Normal 4.14-5.80 [facility] Internal Medicine Work Phone: Comment on above: PATIENT NOT FASTINGP ERFORMED BY: CB [facility] Ywicje9513 [address] RoadDublin [place] [id number] RBC (Bld) [#/Vol] 5.67 10*6/uL Normal 4.14-5.80 [facility]; [facility] Work Phone: Comment on above: PATIENT NOT FASTINGP ERFORMED BY: [facility] [id number] WBC (Bld) [#/Vol] 7.5 {x10E3/uL} Normal 3.4-10.8 [facility] Internal Medicine Work Phone: Comment on above: PATIENT NOT FASTINGP ERFORMED BY: [facility] [id number] WBC (Bld) [#/Vol] 7.5 10*3/uL Normal 3.4-10.8 [facility]; [facility] Work Phone: Comment on above: PATIENT NOT FASTINGP ERFORMED BY: [facility] [id number] Influenza A&B Viral Culture ([id number])Ordered By: Indigo Vat Tender Cloth on 04-06-2019 FLUV identified Org specific cx Nom (Unsp spec) FLUABN Normal [facility] Work Phone: Comment on above: Negative:No Influenz a A or B detected. PATIENT NOT FASTINGP ERFORMED BY: [facility] [id number] Information: SRC:NL Metabolic Panel, Comprehensi ve (19908)Ordered By: Indigo Vat Tender [employer] on 04-06-2019 Albumin [Mass/Vol] 4.3 g/dL Normal 3.5-5.5 [facility] Internal Medicine Work Phone: Comment on above: PATIENT NOT FASTINGP ERFORMED BY: [facility] [id number] Albumin/Globulin [Mass ratio] 1.2 {ratio} Normal 1.2-2.2 [facility] Internal Medicine Work Phone: Comment on above: PATIENT NOT FASTINGP ERFORMED BY: [facility] Labhbs8489 [address] RoadDublin [place] [id number] ALP [Catalytic activity/Vol] 118 [iU]/L Abnormal 39-117 [facility] Work Phone: Comment on above: PATIENT NOT FASTINGP ERFORMED BY: CB [facility] Kyywhh1182 [address] RoadDublin [place] [id number] ALP [Catalytic activity/Vol] 118 U/L Abnormal 39-117 [facility]; [facility] Work Phone: Comment on above: PATIENT NOT FASTINGP ERFORMED BY: CB [facility] Nqailh0720 [address] RoadDublin [place] [id number] ALT [Catalytic activity/Vol] 48 [iU]/L Abnormal 0-44 [facility] Work Phone: Comment on above: PATIENT NOT FASTINGP ERFORMED BY: [facility] Pqlsnv0122 [address] RoadDublin [place] [id number] ALT [Catalytic activity/Vol] 48 U/L Abnormal 0-44 [facility]; [facility] Work Phone: Comment on above: PATIENT NOT FASTINGP ERFORMED BY: [facility] Aqrvba4079 [address] RoadDublin [place] [id number] AST [Catalytic activity/Vol] 34 [iU]/L Normal 0-40 [facility] Work Phone: Comment on above: PATIENT NOT FASTINGP ERFORMED BY: [facility] [id number] [address] RoadDublin [place] [id number] AST [Catalytic activity/Vol] 34 U/L Normal 0-40 [facility]; [facility] Work Phone: Comment on above: PATIENT NOT FASTINGP ERFORMED BY: CB [facility] Isghlg7717 [address] RoadDublin [place] [id number] Bilirubin [Mass/Vol] 0.3 mg/dL Normal 0.0-1.2 [facility] Work Phone: Comment on above: PATIENT NOT FASTINGP ERFORMED BY: CB [facility] Gsvyhf7350 [address] RoadDublin [place] [id number] Calcium [Mass/Vol] 9.4 mg/dL Normal 8.7-10.2 [facility] Work Phone: Comment on above: PATIENT NOT FASTINGP ERFORMED BY: CB [facility] Fmdvum6514 [address] RoadDublin [place] [id number] Chloride [Moles/Vol] 107 mmol/L Abnormal 96-106 Comp rehensive [facility] Medicine Work Phone: Comment on above: PATIENT NOT FASTINGP ERFORMED BY: CB [facility] Qfiekv1863 [address] RoadDublin [place] [id number] CO2 [Moles/Vol] 22 mmol/L Normal 20-29 [facility] Work Phone: Comment on above: PATIENT NOT FASTINGP ERFORMED BY: CB [facility] Obhoas9338 [address] RoadDublin [place] [id number] Creatinine [Mass/Vol] 1.10 mg/dL Normal 0.76-1.27 [facility] Work Phone: Comment on above: PATIENT NOT FASTINGP ERFORMED BY: CB [facility] Pitdfr4220 [address] RoadDublin [place] [id number] GFR/1.73 sq M predicted among blacks CKD-EPI (S/P/Bld) [Vol rate/Area] 89 mL/min/1.73 Normal [facility] Work Phone: Comment on above: PATIENT NOT FASTINGP ERFORMED BY: CB [facility] Xcroll1728 [address] RoadDublin [place] [id number] GFR/1.73 sq M predicted among non-blacks CKD-EPI (S/P/Bld) [Vol rate/Area] 77 mL/min/1.73 Normal [facility] Work Phone: Comment on above: PATIENT NOT FASTINGP ERFORMED BY: CB [facility] Rjhnnc9880 [address] RoadDublin [place] [id number] Globulin (S) [Mass/Vol] 3.5 g/dL Normal 1.5-4.5 [facility] Work Phone: Comment on above: PATIENT NOT FASTINGP ERFORMED BY: CB [facility] Vragji6743 [address] RoadDublin [place] [id number] Glucose [Mass/Vol] 90 mg/dL Normal 65-99 [facility] Internal Medicine Work Phone: Comment on above: PATIENT NOT FASTINGP ERFORMED BY: BILLIE [facility] Ikmluc1839 [address]Formerly [facility] Hospitalin [place] [id number] Potassium [Moles/Vol] 5.1 mmol/L Normal 3.5-5.2 [facility] Work Phone: Comment on above: PATIENT NOT FASTINGP ERFORMED BY: CB [facility] Ujabig[address] [facility] [place] [id number] Protein [Mass/Vol] 7.8 g/dL Normal 6.0-8.5 [facility] Internal Medicine Work Phone: Comment on above: PATIENT NOT FASTINGP ERFORMED BY: BILLIE [facility] Cduokr6637 [address] [facility] [place] [id number] Sodium [Moles/Vol] 146 mmol/L Abnormal 134-144 [facility] Internal Medicine Work Phone: Comment on above: PATIENT NOT FASTINGP ERFORMED BY: [facility] [id number] [address] [facility] [place] [id number] Urea nitrogen [Mass/Vol] 11 mg/dL Normal 6-24 [facility] Work Phone: Comment on above: PATIENT NOT FASTINGP ERFORMED BY: [facility] [id number] [address] [facility] [id number] Urea nitrogen/Creatinine [Mass ratio] 10 mg/mg Normal 9-20 [facility] Work Phone: Comment on above: PATIENT NOT FASTINGP ERFORMED BY: CB [facility] Ybrxtt7634 [address] [facility] [place] [id number] Rapid Flu (07382 x 2)on 03-26 FLUAV Ag IA Ql (Throat) Negative Normal [facility] Work Phone: FLUAV Ag IA Ql (Throat) Negative Normal [facility]; [facility] Work Phone: Urinalysis, Office ([id number])on 02-23-2015 Bilirubin Ql (U) Negative Normal Comprehe [...] 15:42-0400 Body height 177.8 cm Jamila Costa LPN [facility]; [facility] Work Phone: 12-16-2022 15:42-0400 Body mass index (BMI) [Ratio] 49.81 kg/m2 Jamila Slarb CHEMISTRY PHYSICS TEACHER [facility]; [facility] Work Phone: 12-16-2022 15:42-0400 Body surface area Derived from formula 2.64 m2 Jamila Slarb CHEMISTRY PHYSICS TEACHER [facility]; [facility] Work Phone: 12-16-2022 15:42-0400 Body temperature 97.9 [degF] Jamila Slarb CHEMISTRY PHYSICS TEACHER [facility]; [facility] Work Phone: Comment on above: Method: Temporal 12-16-2022 15:42-0400 Body weight 157.46 kg Jamila Slarb CHEMISTRY PHYSICS TEACHER [facility]; [facility] Work Phone: 12-16-2022 15:42-0400 Diastolic blood pressure 82 mm[Hg] Jamila Slarb CHEMISTRY PHYSICS TEACHER [facility]; [facility] Work Phone: Comment on above: Patient Position: Sitting; Cuff Location : Left Arm; Cuff Size: Standard 12-16-2022 15:42-0400 Heart rate 118 /min Jamila Slarb CHEMISTRY PHYSICS TEACHER [facility]; [facility] Work Phone: Comment on above: Pattern: Regular 12-16-2022 15:42-0400 Respiratory rate 16 /min Jamila Slarb CHEMISTRY PHYSICS TEACHER [facility]; [facility] Work Phone: Comment on above: Pattern: Unlabored 12-16-2022 15:42-0400 SaO2% (BldA) [Mass fraction] 99 % Jamila Slarb CHEMISTRY PHYSICS TEACHER [facility]; [facility] Work Phone: Comment on above: Room air 12-16-2022 15:42-0400 Systolic blood pressure 142 mm[Hg] Jamila Slarb CHEMISTRY PHYSICS TEACHER [facility]; [facility] Work Phone: Comment on above: Patient Position: Sitting; Cuff Location : Left Arm; Cuff Size: Standard 07-12-2022 07:16-0500 Body height 177.8 cm Alice Pitts MA [facility]; [facility] Work Phone: 07-12-2022 07:16-0500 Body mass index (BMI) [Ratio] 49.81 kg/m2 Alice Vallesortega SANTANA [facility]; [facility] Work Phone: 07-12-2022 07:16-0500 Body surface area Derived from formula 2.64 m2 Alice Luisjesenia SANTANA [facility]; [facility] Work Phone: 07-12-2022 07:16-0500 Body weight 157.46 kg Alice Luisjesenia SANTANA [facility]; [facility] Work Phone: 03-14-2022 10:46-0400 Body height 177.8 cm Edie Estevez SORAIDA [facility]; [facility] Work Phone: Comment on above: virtual, none reported 03-14-2022 10:46-0400 Body mass index (BMI) [Ratio] 49.81 kg/m2 Ediethomas Estevez SORAIDA [facility]; [facility] [...] Diastolic blood pressure 100 mm[Hg] Alyce Garcias CNP Work Phone: [facility]; [facility] Work Phone: Comment on above: Patient Position: Sitting; Cuff Location : Left Arm; Cuff Size: Large manually taken, then took w/ patient's machine (arm cuff L) and was 166/110 so seems to be accurate 01-08-2022 15:23-0400 Systolic blood pressure 166 mm[Hg] Alyce Garcias CNP Work Phone: [facility]; [facility] Work Phone: Comment on above: Patient Position: Sitting; Cuff Location : Left Arm; Cuff Size: Large manually taken, then took w/ patient's machine (arm cuff L) and was 166/110 so seems to be accurate 01-08-2022 14:34-0400 Body height 177.8 cm [facility]; [facility] Work Phone: 01-08-2022 14:34-0400 Body mass index (BMI) [Ratio] 49.81 kg/m2 [facility]; [facility] Work Phone: 01-08-2022 14:34-0400 Body surface area Derived from formula 2.64 m2 [facility]; [facility] Work Phone: 01-08-2022 14:34-0400 Body temperature 96.9 [degF] [facility] Comprehensiv e Internal Medicine; [facility] Work Phone: 01-08-2022 14:34-0400 Body weight 157.46 kg [facility]; [facility] Work Phone: 01-08-2022 14:34-0400 Heart rate 75 /min [facility]; [facility] Work Phone: Comment on above: Pattern: Regular 01-08-2022 14:34-0400 Respiratory rate 18 /min [facility] Comprehens[facility] e [facility]; [facility] Work Phone: Comment on above: Pattern: Unlabored 01-08-2022 14:34-0400 SaO2% (BldA) [Mass fraction] 97 % [facility]; [facility] Work Phone: Comment on above: Room air 12-31-2021 14:33-0400 Body height 177.8 cm Jamila Cosat LPN [facility]; [facility] Work Phone: 12-31-2021 14:33-0400 Body mass index (BMI) [Ratio] 50.08 kg/m2 Jamila Rodrigorb CHEMISTRY PHYSICS TEACHER [facility]; [facility] Work Phone: 12-31-2021 14:33-0400 Body surface area Derived from formula 2.64 m2 Jamila Slarb CHEMISTRY PHYSICS TEACHER [facility]; [facility] Work Phone: 12-31-2021 14:33-0400 Body temperature 97.2 [degF] Jamila Slarb CHEMISTRY PHYSICS TEACHER [facility]; [facility] Work Phone: 12-31-2021 14:33-0400 Body weight 158.31 kg Jamila Slarb CHEMISTRY PHYSICS TEACHER [facility]; [facility] Work Phone: 12-31-2021 14:33-0400 Diastolic blood pressure 98 mm[Hg] Jamila Slarb CHEMISTRY PHYSICS TEACHER [facility]; [facility] Work Phone: Comment on above: Patient Position: Sitting; Cuff Location : Left Arm; Cuff Size: Standard 12-31-2021 14:33-0400 Heart rate 98 /min Jamila Rodrigorb CHEMISTRY PHYSICS TEACHER [facility]; [facility] Work Phone: Comment on above: Pattern: Regular 12-31-2021 14:33-0400 Respiratory rate 17 /min Jamila Slarb CHEMISTRY PHYSICS TEACHER [facility]; [facility] Work Phone: Comment on above: Pattern: Unlabored 12-31-2021 14:33-0400 SaO2% (BldA) [Mass fraction] 99 % Jamila Slarb CHEMISTRY PHYSICS TEACHER [facility]; [facility] Work Phone: Comment on above: Room air 12-31-2021 14:33-0400 Systolic blood pressure 178 mm[Hg] Jamila Slarb CHEMISTRY PHYSICS TEACHER [facility]; [facility] Work [...] 01-05-2021 08:32-0400 Body height 177.8 cm Radha Suius [facility]; [facility] Work Phone: Comment on above: no vs taken as this is phone encounter d ue to covid 01-05-2021 08:32-0400 Body mass index (BMI) [Ratio] 50.94 kg/m2 Radha Gravius [facility]; [facility] Work Phone: Comment on above: no vs taken as this is phone encounter d ue to covid 01-05-2021 08:32-0400 Body surface area Derived from formula 2.66 m2 Radha Gravius [facility]; [facility] Work Phone: Comment on above: no vs taken as this is phone encounter d ue to covid 01-05-2021 08:32-0400 Body weight 161.05 kg Radha Gravius [facility]; [facility] Work Phone: Comment on above: no vs taken as this is phone encounter d ue to covid 05-25-2020 09:31-0500 BMI (Body Mass Index) 50.94 kg/m2 [facility]; [facility] Work Phone: 05-25-2020 09:31-0500 Body Temperature 98.1 [degF] [facility]; [facility] Work Phone: Comment on above: Method: Thermal Scan 05-25-2020 09:31-0500 Body weight 161.05 kg [facility]; [facility] Work Phone: 05-25-2020 09:31-0500 BSA (Body Surface Area) 2.66 m2 [facility]; [facility] Work Phone: 05-25-2020 09:31-0500 Height 177.8 cm [facility]; [facility] Work Phone: 03-13-2020 10:35-0400 BMI (Body Mass Index) 50.94 kg/m2 [facility] Work Phone: 03-13-2020 10:35-0400 Body weight 161.05 kg [facility] Work Phone: 03-13-2020 10:35-0400 BSA (Body Surface Area) 2.66 m2 [facility] Work Phone: 03-13-2020 10:35-0400 Height 177.8 cm [facility] Work Phone: 09-13-2019 [...] Mass Index) 50.94 kg/m2 Jay Reed LPN [facility] Internal Medicine Work Phone: Comment on above: standing 144/84 04-06-2019 08:56-0500 Body Temperature 97.8 [degF] Jay Reed LPN [facility] Internal Medicine Work Phone: Comment on above: Method: Temporal standing 144/84 04-06-2019 08:56-0500 Body weight 161.05 kg Jay Reed LPN [facility] Internal Medicine Work Phone: Comment on above: standing 144/84 04-06-2019 08:56-0500 BP Diastolic 82 mm[Hg] Jay Reed LPN [facility] Internal Medicine Work Phone: Comment on above: Patient Position: Sitting; Cuff Location : Left Arm; Cuff Size: Standard standing 144/84 04-06-2019 08:56-0500 BP Systolic 142 mm[Hg] Jay Reed LPN [facility] Internal Medicine Work Phone: Comment on above: Patient Position: Sitting; Cuff Location : Left Arm; Cuff Size: Standard standing 144/84 04-06-2019 08:56-0500 BSA (Body Surface Area) 2.66 m2 Jay Reed LPN [facility] Internal Medicine Work Phone: Comment on above: standing 144/84 04-06-2019 08:56-0500 Height 177.8 cm Jay Reed LPN [facility] Internal Medicine Work Phone: Comment on above: standing 144/84 04-06-2019 08:56-0500 Pulse (Heart Rate) 122 /min Jay Reed LPN [facility] Work Phone: Comment on above: Pattern: Regular standing 144/84 04-06-2019 08:56-0500 Pulse Oximetry 97 % Wendie Dawn [facility] Internal Medicine Work Phone: Comment on above: Room air standing 144/84 04-06-2019 08:56-0500 Respiratory Rate 16 /min Jay Reed LPN [facility] Internal Medicine Work Phone: Comment on [...] 07-25-2016 07:25-0500 Pulse Oximetry 96 % Wendie López [facility] Work Phone: Comment on [...] Regular 03-16-2015 09:43-0400 Pulse Oximetry 98 % Wendiekarla Parkeron [facility] Internal Medicine Work Phone: Comment on above: Room air 03-16-2015 09:43-0400 Respiratory Rate 18 /min Paula Hernandez RN [facility] Work Phone: Comment on above: Pattern: Unlabored 03-16-2015 09:43-0400 SaO2% (BldA) [Mass fraction] 98 % Paula Hernandez RN [facility]; [facility] Work Phone: Comment on above: Room air 02-23-2015 07:35-0400 Body Temperature 97.6 [degF] Wendiekarla Parkeron [facility] Internal Medicine Work Phone: Comment on [...] Date Encounter Type Care Provider Facility Start: 05-09-2025 ambulatory Wendieloly Dawn Facilit y:[facility] Start: 04-06-2025 End: 04-06-2025 ambulatory Wendieloly Dawn Facility:[facility] Start: 03-23-2025 End: 03-23-2025 ambulatory Wendiekarla Parkeron Facility:[facility] Start: 03-22-2025 Encounter for genera l adult medical examination without abnormal findings Wendie López [facility] Start: 03-17-2025 End: 03-17-2025 ambulatory Wendieloly Dawn Facility:[facility] Start: 08-24-2024 End: 08-24-2024 ambulatory Wendieloly Dawn Facility:[facility] Start: 12-27-2022 End: 08-04-2023 ambulatory [facility] Work Phone: Start: 12-27-2022 End: 12-27-2022 Patient encounter procedure [facility] [place] Work Phone: Start: 12-17-2022 End: 12-17-2022 Phone [...] 05-29-2020 End: 05-29-2020 Annotation/Addendum Wendie López [facility] Start: 05-25-2020 End: 05-25-2020 Office outpatient visit 15 minutes Wendie López [facility] Start: 03-13-2020 End: 03-13-2020 Office outpatient visit 15 minutes Wendie Ólpez [facility] Start: 09-13-2019 End: 09-13-2019 Office outpatient visit 15 minutes Wendie Dawn [facility] Start: 04-07-2019 End: 04-07-2019 Lab Order Wendie Dawn [facility] Start: 04-07-2019 Review Wendie Hartley [facility] Start: 04-06-2019 End: 04-06-2019 Office outpatient visit 15 minutes Wendie Dawn [facility] Start: 07-25-2016 End: 07-25-2016 Office outpatient visit 15 minutes Wendie Dawn [facility] Start: 03-16-2015 End: 03-16-2015 Office outpatient visit 15 minutes Wendie Dawn [facility] Start: 02-23-2015 End: 02-23-2015 Office outpatient new 30 minutes Wendie Dawn [facility] Internal [facility] Procedures Date Procedure Procedure Detail Performing Clinician Start: 12-27-2022 Computed tomography of abdomen and pelvis with contrast Start: 09-02-2022 End: 09-02-2022 Urgent Care Visit Report Procedure Note: See Note; NOTES: [facility] [address] [place] [address] OFFICE VISIT Date of Service: 09/02/22 MR#: [id number] Acct: [id number] Name: LB CUEVA Rep #: [id number] : 1970 Provider: INDERJIT Leroy Age/Sex: 52/M Location: [facility] Status: Signed Intake Vital Signs 12/30/19 09:30 [...] Emergency Department Summary Comments: See Note; NOTES: [facility] Medical Records Department [address] [place] [address] Emergency Department Summary 12/30/19 MR#: [id number] Acct: [id number] Name: LB CUEVA Rep #: [id number] : 1970 49 From: López Thomas MD PCP: Dr. Wendie Dawn, DO Status:REG ER History of Present Illness [...] % (Auto) 25.3 % (19-41) 12/30/19 10:15 [place] % (Auto) 8.4 % (0-10) 12/30/19 10:15 [...] problems, contact your Primary Care Provider. Call [facility] ([phone]) or report to the closest Emergency Room. Call 911 if necessary. 12/30/19 1141 <Electronically signed by López Thomas MD> Date López Thomas MD Cosigner Signature (If Indicated): Date CC: DO Wendie Brewer Start: 12-30-2019 End: 01-03-2020 12 Lead EKG Comments: See Note; NOTES: [facility] Cardiovascular Services [address] [place] [address] 12 Lead EKG 12/30/19 0957 MR#: [id number] Acct: [id number] Name: LB CUEVA Rep #: [id number] : 1970 49 From: Polina Alva MD Attending Dr: Status: DEP ER Ordering Dr: óLpez Thomas MD Date: 12/30/19 Location: ED Sex: [...] ECG Confirmed by DEBBIE MEDEROS, MANOJ ([id number]), business editor LUIS FERRARI ([id number]) on 01/03/2020 9:32:37 AM Referred By: DIZZY/WEAK Confirmed By:MATTHEW ALVA MD 01/03/20 0932 Date Polina Alva MD CC: Dr. Wendie Dawn DO; Dr. López Thomas MD Signed Wendie Dawn Start: 12-30-2019 End: 12-30-2019 Brain/Head without Contrast Comments: See Note; NOTES: [facility] Imaging Services [address] [place] [id number] Brain/Head without Contrast MR#: [id number] Acct: [id number] Name: LB CUEVA Rep #: [id number] : 1970 M 49 From: Misael ham MD PCP: Dr. Wendie Dawn DO Status: PRE ER Study: Brain/Head without Contrast Date of Exam: 11/12 Exam# [id number] Ordering Dr: López Thomas MD STUDY: CT [...] Wendie Dawn DO; Dr. López Thomas MD Pecan Cleaner: Signed Wendie Dawn Start: 04-19-2015 End: 04-19-2015 PT D/C of Non Returning Pt. Comments: See Note; NOTES: [facility] [address] [place] [address]. [address] [place] [address] Fax REHABILITATION SERVICES DISCHARGE SUMMARY MR#: [id number] Acct: [id number] Name: LB CUEVA Rep #: [id number] : 1970 45 From: Noe Garcias Referring [...] Evaluation - PT Comments: See Note; NOTES: [facility] [address] [place], [place] [address] Fax REHABILITATION SERVICES INITIAL EVALUATION MR#: [id number] Acct: [id number] Name: LB CUEVA Rep #: [id number] : 1970 44 From: Noe Garcias Referring Dr.: Wendie Dawn DO Status: REG RCR Insurance: [facility] Date: Patient's Visit Information LB CUEVA is [...] on his back without pain. 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 Please let me know if there are questions or concerns regarding this plan of care. Physician Signature: Date: <Electronically signed by Noe Garcias > 03/01/15 0754 CC: Wendie Dawn DO NIECY Signed For Medicare only, by signing this I certify the plan of care. __ Physicians Signature Date Wendie López Start: 02-23-2015 End: 02-24-2015 L/S Spine Min 4 Views Comments: See Note; NOTES: [facility] Imaging Services [address] [place] [address] Radiology Report MR#: [id number] Acct: [id number] Name: LB CUEVA Rep #: [id number] : 1970 M 44 From: Kiarra Boyce MD PCP: Wendie Dawn DO Status: REG CLI Study: L/S Spine Min 4 Views Date of Exam: 02/23/15 Exam# [id number] Ordering Dr: Wendie Dawn DO STUDY: X-RAY [...] MD at 7:22 EDT , Service support [phone], RAD/L/S Spine Min 4 Views IMPRESSION: Mild degenerative changes as above. Neuro foramina L5-S1, L4-5. Electronically Signed: Kiarra Boyce MD at 7:22 EDT , Service support [phone], CC: Wendie Dawn DO Pecan Cleaner: Signed Wendie Dawn Work Phone: Plan of Treatment Date Care Activity Detail Author Start: 12-16-2022 C-reactive protein C-REACTIVE PROTEIN (15113) [facility] Work Phone: Start: 12-16-2022 Sedimentation rate r bc non-automated Sed Rate Erythrocyte (03110) [facility]; [facility] Work Phone: Start: 12-16-2022 Assay of thyroid stimulating hormone tsh TSH (98531) [facility]; [facility] Work Phone: Start: 12-16-2022 Urnls dip stick/tabl et reagent auto microscopy URINALYSIS, W/ MICRO (77862) [facility]; [facility] Work Phone: Start: 12-16-2022 Urine albumin quantitative MICROALBUMIN: CREATININE RATIO (82192) AND (37656) [facility]; [facility] Work Phone: Start: 12-16-2022 Comprehensive metabo lic panel METABOLIC PANEL, COMPREHENSIVE (21059) [facility]; [facility] Work Phone: Start: 12-16-2022 Blood count complete auto&auto difrntl wbc CBC W/AUTO DIFF WBC (73590) [facility]; [facility] Work [...] Phone: Start: 01-08-2022 Lipid panel LIPID PANEL (92081) [facility]; [facility] [...] [place] influenza 2019 Novel Coronavirus (COVID-19), KRISTY (34832) [facility]; [facility] Work Phone: Start: 01-05-2021 Procedure Education Eprescribe d prescriptions (G8553) [facility]; [facility] Work Phone: Start: 05-25-2020 Procedure Education Eprescribe d prescriptions (G8553) [facility]; [facility] Work Phone: Start: 05-25-2020 [place] influenza 2019 Novel Coronavirus (COVID-19), KRISTY (04155) [facility]; [facility] Work Phone: Start: 03-13-2020 Procedure Education Eprescribe d prescriptions (G8553) [facility] Work Phone: Start: 09-13-2019 Procedure Education Eprescribe d prescriptions (G8553) [facility] Work Phone: Start: 04-07-2019 Comprehensive metabo lic panel METABOLIC PANEL, COMPREHENSIVE (55086) [facility] Work Phone: Start: 04-06-2019 Procedure Education Eprescribe d prescriptions (G8553) [facility] Work Phone: Start: 04-06-2019 Provider Instruction s for Treatment Follow up if no improvement or if symptoms worsen [facility] Work Phone: Start: 04-06-2019 Blood count complete auto&auto difrntl wbc CBC, Platelets & Auto Diff (63402) [facility] Work Phone: Start: 04-06-2019 Comprehensive metabo lic panel Metabolic Panel, Comprehensive (87031) [facility] Work Phone: Start: 04-06-2019 Virus centrifuge enh ncd id imfluor stain ea Influenza A&B Viral Culture (26751) [facility] Work Phone: Start: 07-25-2016 [...] Work Phone: Payers Date Payer Category Payer Unknown [id number] 2024 Self-pay [id number] 2020 Private Health Insurance [id number] 2014 Unknown [id number] 1970 Unknown [id number] Unknown Unknown [id number] Unknown [id number] 2.16.8 [id number] Unknown [id number] 2.16.8 [id number] Unknown [id number] 2.16.8 [id number] Unknown [id number] 2.16.8 [id number] Unknown [id number] 2.16.8 [id number] Social History Date Type Detail Facility [facility]: [facility]22 [facility] Start: 12-30-2019 Cigars [facility] Start: 1970 Sex Assigned At Male [facility] Clinical Notes Note Date & Type Note Facility Evaluation note No assessment information availa ble [facility] Work Phone: Instructions Name Patient Instructions Indication:Non-smoker Start: 1 Instruction Type:Provider Instructions for Treatment How to Access Health Information Online using Patient Portal and [email or web address] Apps Indication:Non-smoker Start: 1 Instruction Type:Patient Education How to Access Health Information Online using Patient Portal and [employer] Apps Indication:Non-smoker Start: 0 Instruction Type:Patient Education [...] tion Online using Patient Portal and [employer] Apps Indication:Non-smoker Start:05-Jan-2021 Instruction Type:Patient Education How to Access Health Informa tion Online using Patient Portal and [employer] Apps Indication:Non-smoker Start:25-May-2020 Instruction Type:Patient Education Patient [...] tion Online using Patient Portal and [employer] Apps Indication:Non-smoker Start:05-Jan-2021 Instruction Type:Patient Education How to Access Health Informa tion Online using Patient Portal and [employer] Apps Indication:Non-smoker Start:25-May-2020 Instruction Type:Patient Education Patient [...] tion Online using Patient Portal and [employer] Apps Indication:Non-smoker Start:31-Dec-2021 Instruction Type:Patient Education Patient Instructions Indication:COVID Start:19-Jun-2021 Instruction Type:Provider Instructions for Treatment Patient Instructions Indication:Non-smoker Start:05-Jan-2021 Instruction Type:Provider Instructions for Treatment How to Access Health Informa tion Online using Patient Portal and [employer] Apps Indication:Non-smoker Start:05-Jan-2021 Instruction Type:Patient Education How to Access Health Informa tion Online using Patient Portal and [employer] Apps Indication:Non-smoker Start:25-May-2020 Instruction Type:Patient Education Patient [...] Informa tion Online using Patient Portal and [email or web address] Apps Indication:Non-smoker Start:31-Dec-2021 Instruction Type:Patient Education Patient Instructions Indication:COVID Start:19-Jun-2021 Instruction Type:Provider Instructions for Treatment Patient Instructions Indication:Non-smoker Start:05-Jan-2021 Instruction Type:Provider Instructions for Treatment How to Access Health Informa tion Online using Patient Portal and [employer] Apps Indication:Non-smoker Start:05-Jan-2021 Instruction Type:Patient Education How to Access Health Informa tion Online using Patient Portal and [employer] Apps Indication:Non-smoker Start:25-May-2020 Instruction Type:Patient Education Patient [...] tion Online using Patient Portal and [employer] Apps Indication:Non-smoker Start:08-Jan-2022 Instruction Type:Patient Education Patient Instructions Indication:Non-smoker Start:31-Dec-2021 Instruction Type:Provider Instructions for Treatment How to Access Health Informa tion Online using Patient Portal and [employer] Apps Indication:Non-smoker Start:31-Dec-2021 Instruction Type:Patient Education Patient Instructions Indication:COVID Start:19-Jun-2021 Instruction Type:Provider Instructions for Treatment Patient Instructions Indication:Non-smoker Start:05-Jan-2021 Instruction Type:Provider Instructions for Treatment How to Access Health Informa tion Online using Patient Portal and [employer] Apps Indication:Non-smoker Start:05-Jan-2021 Instruction Type:Patient Education How to Access Health Informa tion Online using Patient Portal and [employer] Apps Indication:Non-smoker Start:25-May-2020 Instruction Type:Patient Education Patient [...] tion Online using Patient Portal and [employer] Apps Indication:BMI 50.0-59.9, adult Start:14-Mar-2022 Instruction Type:Patient Education Patient Instructions Indication:Non-smoker Start:08-Jan-2022 Instruction Type:Provider Instructions for Treatment How to Access Health Informa tion Online using Patient Portal and [employer] Apps Indication:Non-smoker Start:08-Jan-2022 Instruction Type:Patient Education Patient Instructions Indication:Non-smoker Start:31-Dec-2021 Instruction Type:Provider Instructions for Treatment How to Access Health Informa tion Online using Patient Portal and [employer] Apps Indication:Non-smoker Start:31-Dec-2021 Instruction Type:Patient Education Patient Instructions Indication:COVID Start:19-Jun-2021 Instruction Type:Provider Instructions for Treatment Patient Instructions Indication:Non-smoker Start:05-Jan-2021 Instruction Type:Provider Instructions for Treatment How to Access Health Informa tion Online using Patient Portal and [employer] Apps Indication:Non-smoker Start:05-Jan-2021 Instruction Type:Patient Education How to Access Health Informa tion Online using Patient Portal and [employer] Apps Indication:Non-smoker Start:25-May-2020 Instruction Type:Patient Education Patient [...] tion Online using Patient Portal and [employer] Apps Indication:Non-smoker Start:12-Jul-2022 Instruction Type:Patient Education Patient Instructions Indication:BMI 50.0-59.9, adult Start:14-Mar-2022 Instruction Type:Provider Instructions for Treatment How to Access Health Informa tion Online using Patient Portal and [employer] Apps Indication:BMI 50.0-59.9, adult Start:14-Mar-2022 Instruction Type:Patient Education Patient Instructions Indication:Non-smoker Start:08-Jan-2022 Instruction Type:Provider Instructions for Treatment How to Access Health Informa tion Online using Patient Portal and [employer] Apps Indication:Non-smoker Start:08-Jan-2022 Instruction Type:Patient Education Patient Instructions Indication:Non-smoker Start:31-Dec-2021 Instruction Type:Provider Instructions for Treatment How to Access Health Informa tion Online using Patient Portal and [employer] Apps Indication:Non-smoker Start:31-Dec-2021 Instruction Type:Patient Education Patient Instructions Indication:COVID Start:19-Jun-2021 Instruction Type:Provider Instructions for Treatment Patient Instructions Indication:Non-smoker Start:05-Jan-2021 Instruction Type:Provider Instructions for Treatment How to Access Health Informa tion Online using Patient Portal and [employer] Apps Indication:Non-smoker Start:05-Jan-2021 Instruction Type:Patient Education How to Access Health Informa tion Online using Patient Portal and [employer] Apps Indication:Non-smoker Start:25-May-2020 Instruction Type:Patient Education Patient [...] tion Online using Patient Portal and [employer] Apps Indication:BMI 50.0-59.9, adult Start:16-Dec-2022 Instruction Type:Patient Education Patient Instructions Indication:Non-smoker Start:12-Jul-2022 Instruction Type:Provider Instructions for Treatment How to Access Health Informa tion Online using Patient Portal and [employer] Apps Indication:Non-smoker Start:12-Jul-2022 Instruction Type:Patient Education Patient Instructions Indication:BMI 50.0-59.9, adult Start:14-Mar-2022 Instruction Type:Provider Instructions for Treatment How to Access Health Informa tion Online using Patient Portal and [employer] Apps Indication:BMI 50.0-59.9, adult Start:14-Mar-2022 Instruction Type:Patient Education Patient Instructions Indication:Non-smoker Start:08-Jan-2022 Instruction Type:Provider Instructions for Treatment How to Access Health Informa tion Online using Patient Portal and [employer] Apps Indication:Non-smoker Start:08-Jan-2022 Instruction Type:Patient Education Patient Instructions Indication:Non-smoker Start:31-Dec-2021 Instruction Type:Provider Instructions for Treatment How to Access Health Informa tion Online using Patient Portal and [employer] Apps Indication:Non-smoker Start:31-Dec-2021 Instruction Type:Patient Education Patient Instructions Indication:COVID Start:19-Jun-2021 Instruction Type:Provider Instructions for Treatment Patient Instructions Indication:Non-smoker Start:05-Jan-2021 Instruction Type:Provider Instructions for Treatment How to Access Health Informa tion Online using Patient Portal and [employer] Apps Indication:Non-smoker Start:05-Jan-2021 Instruction Type:Patient Education How to Access Health Informa tion Online using Patient Portal and [employer] Apps Indication:Non-smoker Start:25-May-2020 Instruction Type:Patient Education Patient [...] tion Online using Patient Portal and [employer] Apps Indication:BMI 50.0-59.9, adult Start:16-Dec-2022 Instruction Type:Patient Education Patient Instructions Indication:Non-smoker Start:12-Jul-2022 Instruction Type:Provider Instructions for Treatment How to Access Health Informa tion Online using Patient Portal and [employer] Apps Indication:Non-smoker Start:12-Jul-2022 Instruction Type:Patient Education Patient Instructions Indication:BMI 50.0-59.9, adult Start:14-Mar-2022 Instruction Type:Provider Instructions for Treatment How to Access Health Informa tion Online using Patient Portal and [employer] Apps Indication:BMI 50.0-59.9, adult Start:14-Mar-2022 Instruction Type:Patient Education Patient Instructions Indication:Non-smoker Start:08-Jan-2022 Instruction Type:Provider Instructions for Treatment How to Access Health Informa tion Online using Patient Portal and [employer] Apps Indication:Non-smoker Start:08-Jan-2022 Instruction Type:Patient Education Patient Instructions Indication:Non-smoker Start:31-Dec-2021 Instruction Type:Provider Instructions for Treatment How to Access Health Informa tion Online using Patient Portal and [employer] Apps Indication:Non-smoker Start:31-Dec-2021 Instruction Type:Patient Education Patient Instructions Indication:COVID Start:19-Jun-2021 Instruction Type:Provider Instructions for Treatment Patient Instructions Indication:Non-smoker Start:05-Jan-2021 Instruction Type:Provider Instructions for Treatment How to Access Health Informa tion Online using Patient Portal and [employer] Apps Indication:Non-smoker Start:05-Jan-2021 Instruction Type:Patient Education How to Access Health Informa tion Online using Patient Portal and [employer] Apps Indication:Non-smoker Start:25-May-2020 Instruction Type:Patient Education Patient [...] Informa tion Online using Patient Portal and [email or web address] Apps Indication:Non-smoker Start:25-May-2020 Instruction Type:Patient Education Patient [...] Informa tion Online using Patient Portal and [employer] Apps Indication:Non-smoker Start:25-May-2020 Instruction Type:Patient Education Patient [...] No September 02, 2022 1:14pm Power of Court Officer No September 02 1:14pm Chief Complaint and Reason for Visit Chief Complaint ABD PAIN Additional Source Comments (unrecognized sect ion and content) No Status Records FoundNo Status Records Found INFORMATION SOURCE (unrecogn ized section and content) DATE CREATED AUTHOR 07/12/2022 [facility] DATE CREATED AUTHOR AUTHOR'S JENNIFER KOEHLER 04/07/2025 [facility] Care Teams (unrecognized sec tion and content) Team Status: Active Member Role Status Dates Dr. Wendie Dawn DO Family Provider Active Dr. Wendie Dawn , DO Primary Care Provider Active Team Status: Inactive Member Role Status Dates Dr. Wendie Dawn , DO Primary Care Pr ovider, Attending Provider, [...] BE BASED ON THE PRIMARY CLINICAL RECORDS. [employer] [facility]. provides no warranty or guarantee of the accuracy or completeness of information in this document.
== END | disposition home or self-care (01) ==
LOC: SL 04-29 07:37
PROVIDERS: PCP Internal Medicine; Visit Provider Nurse Practitioner Family
DX: Z00.00 Encounter for general adult medical examination without abnormal findings (principal)

== ENCOUNTER → 2025-05-05 | Outpatient (CLI) | payer BC, SELFPAY | END | disposition home or self-care (01) | LOC: SL 14:03 | PROVIDERS: PCP Internal Medicine; Referring Provider Nurse Practitioner Family; Visit Provider Nurse Practitioner Family | DX: G47.33 Obstructive sleep apnea (adult) (pediatric) (principal) | CPT/HCPCS: 95806 ==

== ENCOUNTER 2025-05-09 07:32 | Day surgery (SDC) | payer BC, SELFPAY ==
[2025-05-09] VITALS (8 sets, daily range): BP systolic 121–147; BP diastolic 75–93; PULSE 82–104; RESP 14–18; TEMP 36.2–36.8; O2SAT 95–98; BMI 51.8
--- NOTE | 2025-05-09 07:37 | H&P.OPEN ---
HPI - General General Date of Service: 05/09/25 HPI Narrative LB CUEVA, is a 55 M who presents for screening colonoscopy. Patient denies any changes since last visit. Last visit 03/23/2025 [facility] HPI: 55-year-old male presents due to constipation as well as screening colonoscopy. Patient states that he does have a cycle of constipation and loose stools or watery stools. Patient states he does go mostly every day denies any blood. Patient denies any family history of colon cancer. Patient denies any nausea or vomiting. Patient only gets reflux on occasion depending on the food he eats maybe once every month or so. Patient's never had previous colonoscopy. [facility] Medical History Wears glasses Alcohol use Arthritis History of IBS CPAP (continuous positive airway pressure) dependence Sleep apnea Hypertension Abdominal pain History of change in bowel patterns Home Medications ?Medication ?Instructions ?Recorded ?Last Taken ?Type lisinopril 20 mg tablet 20 mg PO DAILY #30 tabs 04/25/25 05/08/25 Rx inulin 2 gram chewable tablet 6 g PO DAILY 05/05/25 05/05/25 History (Fiber Delights) Allergy/AdvReac Type Severity Reaction Status Date / Time No Known Allergies Allergy Verified 05/09/25 07:50 Family History Grandmother Breast cancer Mother Cancer Lung Cancer CVA (cerebral vascular accident) Father Cancer Hypertension Brother Cancer Hypertension Surgical History History of open reduction and internal fixation (ORIF) procedure Social History Smoking Status: Never smoker alcohol intake: current alcohol intake frequency: a few times a week Alcohol type: hard liquor substance use type: does not use Past Medical/Surgical History Planned Operation Planned Operative Procedure(s): COLONOSCOPY Cardiovascular Hx of Irregular Heartbeat and/or Afib: No Hx Heart Attack: No Hx Congestive Heart Failure: No Hx Hypertension: No Hx Pacemaker: No Respiratory Hx Chronic Obstructive Pulmonary Disease (COPD): No Hx Asthma: No Hx Emphysema: No Hx Sleep Apnea: Yes CPAP: Yes BIPAP: No Result (for STOP score): Positive Smoking Status: Never smoker Gastrointestinal Hx Ulcer: Yes Neurological Hx Seizures: No Hx Transient Ischemic Attacks (TIA): No Hx Head/Neck Injury: Yes Hx Headaches: Yes Hx Back Injury/Pain: Yes Blood Disorder Hx High Cholesterol: No Hx Hepatitis: No Hx Cirrhosis: No Endocrine Hx Diabetes: No Psycho/Social Hx Substance Use: No Hx Alcohol Use: Yes (2-3x a week) Hx Depression: No Hx Dementia: No Miscellaneous Hx Cancer: No Allergies No Known Allergies Allergy (Verified 05/09/25 07:50) Discharge Is Pt Admitted From a Jail, or a Half-Way: No After D/C, Where Do you Plan to Go: Return Home Physical Exam Const alert, oriented x3 and no apparent distress HEENT normocephalic and head/scalp atraumatic Resp normal respiratory effort Cardio regular rate GI soft to palpation and non-tender; Negative for non-distended Palpation: Negative for guarding Extremity no clubbing, cyanosis or edema Skin no rashes or lesions noted Neuro CN's II-XII intact bilaterally Psych mental status grossly normal Assessment & Plan Assessment/Plan (1) Encounter for screening for malignant neoplasm of colon: Surgery Risks - Colonoscopy I discussed with the patient the risks of the procedure: Yes Risks Include but are not Limited To: Risks include but are not limited to: Bleeding, perforation requiring further surgery, inability to complete colonoscopy requiring barium enema.
--- OUTSIDE RECORDS SUMMARY | 2025-05-09 07:46 | XMS RPT_ITS | CCD ---
Author Organization [facility] Care Team Providers Care Staking Technician Name Role Phone López, Wendie Unavailable Jay Adams Unavailable Unavailable Laxmi Craig E Unavailable Unavailable Unavailable Herb, Edie Unavailable Unavailable Jason Sandy Unavailable Unavailable Heather Mock Unavailable Unavailable López DO, Wendie Unavailable Jackie CHANNEL SALES DIRECTOR, Radha Unavailable Unavailable Unavailable Unavailable Sabra Norman MD Unavailable [phone] López DO, Wendie Unavailable Slarb BROADCAST METEOROLOGIST, Jamila Unavailable Unavailable Sabra Norman MD Unavailable Alyce Garcias CNP Unavailable Glacier CHANNEL SALES DIRECTOR, Kayela Unavailable Unavailable Herb BROADCAST METEOROLOGIST, Edie Unavailable Unavailable López DO, Wendie Attending Unavailable López DO, Wendie Referring Unavailable López DO, Wendie Consulting Unavailable Alice Pitts MA Unavailable Unavailable Robotham, Mallory Unavailable [place] BROADCAST METEOROLOGIST, Jorge L Unavailable Unavailable López, Wendie Referring [...] Facility Pulmonary Visit Reporton Pulmonary Visit Report [facility] [address] [place] [address] OFFICE VISIT Date of Service: 04/06/25 MR#: [id number] Acct: [id number] Name: LB CUEVA Rep #: [id number] : 1970 Provider: Alice Hester NP Age/Sex: 55/M Location: [facility] Status: Signed Assessment and Plan Assessment and [...] Additional Comments: This note was generated with [employer] dictation software. 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 Normal [facility] Surgery Visit Reporton 03-23 Surgery Visit Report [facility] [address] [place] [address] OFFICE VISIT Date of Service: 03/23/25 MR#: [id number] Acct: [id number] Name: LB CUEVA Rep #: [id number] : 1970 Provider: Dr. Mallory desir MD Age/Sex: 55/M Location: [facility] Status: Signed Intake Vital Signs 01/07/23 13:44 [...] healthy appearing, comfortable and no acute distress [facility] Head: normocephalic and atraumatic Neck Neck: supple [...] the procedure (more content not included)... Normal [facility] PSA Total (Rflx Free)on 02-24 COMMENT Comment Normal . [facility] Comment on above: Result Comment: The percent free PSA is performed on a reflex basis only when the total PSA is between 4.0 and 10.0 ng/mL. Performed at: [facility] [employer] [id number] Wireless Team Member: Shelton Kumar PhD, Phone: [phone] Performed By: #### L 3110.0100, L501.0100, L500.4100 #### [facility] [address] [place], [place], [id number] PSA, TOTAL 0.8 ng/mL Normal 0.0-4.0 [facility] Comment on above: Result Comment: Sam black ECLIA methodology. According to the [place] [employer], Serum PSA should decrease and [...] By: #### L 3110.0100, L501.0100, L500.4100 #### [facility] [address] [place], [place], [address] Glucoseon 03-17-2025 Glucose [Mass/Vol] 92 mg/dL Normal 70-99 [facility] Comment on above: Performed By: #### L 3110.0100, L501.0100, L500.4100 #### [facility] [address] [place], [address] Lipid Profileon 03-17-2025 CHOL:HDL 4.34 Normal [facility] Comment on above: Performed By: #### L 3110.0100, L501.0100, L500.4100 #### [facility] [address] [place], [address] Cholesterol [Mass/Vol] 206 mg/dL High <=200 [facility] Comment on above: Result Comment: Chol esterol level, Desirable <200 mg/dL Borderline high cholesterol 200-239 mg/dL High cholesterol >=240 mg/dL Recommendations of the NCEP Adult Treatment Panel for the following risk-cutoff thresholds for the [place] population. Performed By: #### L 3110.0100, L501.0100, L500.4100 #### [facility] [address] [place], [address] Cholesterol in HDL [Mass/Vol] 48 mg/dL Normal [facility] Comment on above: Result Comment: Karlene onal Cholesterol Education Program (NCEP) guidelines: <40 mg/dL: Low HDL-cholesterol (major risk factor for CHD) >= 60 mg/dL: High HDL-cholesterol (negative risk factor for CHD) HDL-cholesterol is affected by a number of factors, e.g. smoking, exercise, hormones, sex and age. Performed By: #### L 3110.0100, L501.0100, L500.4100 #### [facility] [address] [place], [address] Cholesterol in LDL [Mass/Vol] 128 mg/dL Normal [facility] Comment on above: Result Comment: Bord veskag=817-808 mg/dL Higher Wwbd=274 mg/dL or greater Hunter Equation 2020 for LDL-C Performed By: #### L 3110.0100, L501.0100, L500.4100 #### [facility] [address] [place], [place], [address] Cholesterol in VLDL [Mass/Vol] 35 mg/dL Normal 5-40 [facility] Comment on above: Performed By: #### L 3110.0100, L501.0100, L500.4100 #### [facility] [address] [place], [address] Triglyceride [Mass/Vol] 173 mg/dL Normal [facility] Comment on above: Result Comment: The drugs N-Acetylcysteine and Metamizole may falsely depress this assay. Normal range: <150 mg/dL Borderline High: 150-199 mg/dL High: 200-499 mg/dL Very High: >500 mg/dL Performed By: #### L 3110.0100, L501.0100, L500.4100 #### [facility] [address] [place], [place], [address] Urgent Care Visit Reporton 0 08-24-2024 Urgent Care Visit Report [facility] [address], [address] [place], [place] [address] OFFICE VISIT Date of Service: 08/24/24 MR#: [id number] Acct: [id number] Name: LB CUEVA Rep #: [id number] : 1970 Provider: INDERJIT Alexandra Age/Sex: 54/M Location: [facility] Status: Signed Intake Vital Signs 01/07/23 13:44 Height 5 ft 10 in Intake Visit Reasons: [facility] PHYSICAL/ [facility] Accompanied by: Self Allergies No Known Allergies Allergy (Verified 08/24/24 12:47) Medications ???Medication ???Instructions ???Recorded ???Confirmed ???Type NK 01/07/23 08/24/24 [facility] (Updated 01/07/23 @ 14:14 by [...] Chow Signature: Date (if applicable) CC: Normal [facility] C-REACTIVE PROTEIN ([id number])Or dered By: [employer] Artistic Director on 12-17-2022 CRP [Mass/Vol] 12 mg/L Abnormal 0-10 Comprehens nini [facility]; [facility] Work Phone: Comment on above: PATIENT NOT FASTINGP ERFORMED BY: [employer] [facility] [id number] CBC W/AUTO DIFF WBC (37018)O rdered By: [employer] Artistic Director on 12-17-2022 Basophils (Bld) [#/Vol] 0.1 10*3/uL Normal 0.0-0.2 [facility]; [facility] Work Phone: Comment on above: PATIENT NOT FASTINGP ERFORMED BY: [employer]6[address] FieldAwareHugh [facility] [id number] Basophils/100 WBC (Bld) 1 % Normal [facility]; [facility] Work Phone: Comment on above: PATIENT NOT FASTINGP ERFORMED BY: CB [facility] Pixpkv6[address] RoadDublin [place] [id number] Eosinophils (Bld) [#/Vol] 0.3 10*3/uL Normal 0.0-0.4 [facility]; [facility] Work Phone: Comment on above: PATIENT NOT FASTINGP ERFORMED BY: CB [facility] Bkmuzs18[address] RoadDublin [place] [id number] Eosinophils/100 WBC (Bld) 3 % Normal [facility]; [facility] Work Phone: Comment on above: PATIENT NOT FASTINGP ERFORMED BY: CB [facility] Gsppug80[address] RoadDublin [place] [id number] Erythrocyte distribution width (RBC) [Ratio] 13.1 % Normal 11.6-15.4 [facility]; [facility] Work Phone: Comment on above: PATIENT NOT FASTINGP ERFORMED BY: CB [facility] Gddkun37[address] RoadDublin [place] [id number] Hematocrit (Bld) [Volume fraction] 45.8 % Normal 37.5-51.0 [facility]; [facility] Work Phone: Comment on above: PATIENT NOT FASTINGP ERFORMED BY: CB [facility] Voyuha7[address] RoadDublin [place] [id number] Hemoglobin (Bld) [Mass/Vol] 15.2 g/dL Normal 13.0-17.7 [facility]; [facility] Work Phone: Comment on above: PATIENT NOT FASTINGP ERFORMED BY: CB [facility] Rtsgum28[address] RoadDublin [place] [id number] Immature granulocytes (Bld) [#/Vol] 0.1 10*3/uL Normal 0.0-0.1 [facility]; [facility] Work Phone: Comment on above: PATIENT NOT FASTINGP ERFORMED BY: CB [facility] Pqmkni040[address] RoadDublin [place] [id number] Immature granulocytes/100 WBC (Bld) 1 % Normal [facility]; [facility] Work Phone: Comment on above: PATIENT NOT FASTINGP ERFORMED BY: BILLIE White6[address] RoadDublin [place] [id number] Lymphocytes (Bld) [#/Vol] 2.3 10*3/uL Normal 0.7-3.1 [facility]; [facility] Work Phone: Comment on above: PATIENT NOT FASTINGP ERFORMED BY: BILLIE Labtheresa SchafferVxdhsf68[address] RoadDublin [place] [id number] Lymphocytes/100 WBC (Bld) 25 % Normal [facility]; [facility] Work Phone: Comment on above: PATIENT NOT FASTINGP ERFORMED BY: BILLIE Schafferlin[address] RoadHugh Chatham Memorial Hospitalin [place] [id number] MCH (RBC) [Entitic mass] 28.9 pg Normal 26.6-33.0 [facility]; [facility] Work Phone: Comment on above: PATIENT NOT FASTINGP ERFORMED BY: BILLIE [facility] Cffxbt[address] [facility] [place] [id number] MCHC (RBC) [Mass/Vol] 33.2 g/dL Normal 31.5-35.7 [facility]; [facility] Work Phone: Comment on above: PATIENT NOT FASTINGP ERFORMED BY: BILLIE Labarnulfo Lmommo[address] [facility]bl[facility] [place] [id number] MCV (RBC) [Entitic vol] 87 fL Normal 79-97 [facility]; [facility] Work Phone: Comment on above: PATIENT NOT FASTINGP ERFORMED BY: BILLIE [facility] Rqyjxp[address] RoadDublin [place] [id number] Monocytes (Bld) [#/Vol] 0.9 10*3/uL Normal 0.1-0.9 [facility]; [facility] Work Phone: Comment on above: PATIENT NOT FASTINGP ERFORMED BY: CB [facility] Svewuw[address] RoadDublin [place] [id number] Monocytes/100 WBC (Bld) 10 % Normal [facility]; [facility] Work Phone: Comment on above: PATIENT NOT FASTINGP ERFORMED BY: CB [facility] Blxvep48[address] RoadDublin [place] [id number] Neutrophils (Bld) [#/Vol] 5.6 10*3/uL Normal 1.4-7.0 [facility]; [facility] Work Phone: Comment on above: PATIENT NOT FASTINGP ERFORMED BY: CB [facility] Ljldyz[address] RoadDublin [place] [id number] Neutrophils/100 WBC (Bld) 60 % Normal [facility]; [facility] Work Phone: Comment on above: PATIENT NOT FASTINGP ERFORMED BY: CB [facility] Afbrzr[address] RoadDublin [place] [id number] Platelets (Bld) [#/Vol] 239 10*3/uL Normal 150-450 [facility]; [facility] Work Phone: Comment on above: PATIENT NOT FASTINGP ERFORMED BY: CB [facility] Peafhu[address] RoadDublin [place] [id number] RBC (Bld) [#/Vol] 5.26 10*6/uL Normal 4.14-5.80 Compr [facility] Internal [facility]; [facility] Work Phone: Comment on above: PATIENT NOT FASTINGP ERFORMED BY: CB [facility] Auuftf[address] RoadDublin [place] [id number] WBC (Bld) [#/Vol] 9.3 10*3/uL Normal 3.4-10.8 [facility]; [facility] Work Phone: Comment on above: PATIENT NOT FASTINGP ERFORMED BY: CB [facility] Prydoa[address] RoadDublin [place] [id number] METABOLIC PANEL, COMPREHENSI VE ([id number])Ordered By: [employer] Artistic Director on 12-17-2022 Albumin [Mass/Vol] 4.3 g/dL Normal 3.8-4.9 [facility]; [facility] Work Phone: Comment on above: PATIENT NOT FASTINGP ERFORMED BY: BILLIE [facility] Uderbs6[address] RoadDublin [place] [id number] Albumin/Globulin [Mass ratio] 1.4 {ratio} Normal 1.2-2.2 [facility]; [facility] Work Phone: Comment on above: PATIENT NOT FASTINGP ERFORMED BY: CB [facility] Ltqceh34[address] RoadDublin [place] [id number] ALP [Catalytic activity/Vol] 120 U/L Normal 44-121 [facility]; [facility] Work Phone: Comment on above: PATIENT NOT FASTINGP ERFORMED BY: CB [facility] Wvvgjp15[address] RoadDublin [place] [id number] ALT [Catalytic activity/Vol] 31 U/L Normal 0-44 [facility]; [facility] Work Phone: Comment on above: PATIENT NOT FASTINGP ERFORMED BY: CB [facility] Csetad23[address] RoadDublin [place] [id number] AST [Catalytic activity/Vol] 30 U/L Normal 0-40 [facility]; [facility] Work Phone: Comment on above: PATIENT NOT FASTINGP ERFORMED BY: BILLIE [facility] Xpxyol[address] RoadDublin [place] [id number] Bilirubin [Mass/Vol] 0.7 mg/dL Normal 0.0-1.2 Comp rehensive Internal Medicine; [facility] Work Phone: Comment on above: PATIENT NOT FASTINGP ERFORMED BY: CB [facility] Jnsdah65[address] RoadDublin [place] [id number] Calcium [Mass/Vol] 9.5 mg/dL Normal 8.7-10.2 [facility]; [facility] Work Phone: Comment on above: PATIENT NOT FASTINGP ERFORMED BY: CB [facility] Mzwrhu7[address] RoadDublin [place] [id number] Chloride [Moles/Vol] 102 mmol/L Normal 96-106 Comp rehensive Internal [facility]; [facility] Work Phone: Comment on above: PATIENT NOT FASTINGP ERFORMED BY: BILLIE [facility] Siqtfa8[address] RoadDublin [place] [id number] CO2 [Moles/Vol] 23 mmol/L Normal 20-29 [facility]; [facility] Work Phone: Comment on above: PATIENT NOT FASTINGP ERFORMED BY: CB [facility] Xhegfs[address] RoadDublin [place] [id number] Creatinine [Mass/Vol] 1.03 mg/dL Normal 0.76-1.27 [facility]; [facility] Work Phone: Comment on above: PATIENT NOT FASTINGP ERFORMED BY: BILLIE [facility] Blzibw20[address] RoadDublin [place] [id number] GFR/1.73 sq M.predicted among non-blacks MDRD (S/P/Bld) [Vol rate/Area] 86 mL/min/{1.73_m2} Normal Comprehensiv e Internal Medicine; [facility] Work Phone: Comment on above: PATIENT NOT FASTINGP ERFORMED BY: BILLIE [facility] Vtozhh0238 [address] RoadDublin [place] [id number] Globulin (S) [Mass/Vol] 3.0 g/dL Normal 1.5-4.5 [facility]; [facility] Work Phone: Comment on above: PATIENT NOT FASTINGP ERFORMED BY: CB [facility] Prxbct7679 [address] RoadDublin [place] [id number] Glucose [Mass/Vol] 90 mg/dL Normal 70-99 [facility]; [facility] Work Phone: Comment on above: PATIENT NOT FASTINGP ERFORMED BY: CB [facility] Jcoasg2827 [address] RoadDublin [place] [id number] Potassium [Moles/Vol] 4.8 mmol/L Normal 3.5-5.2 [facility]; [facility] Work Phone: Comment on above: PATIENT NOT FASTINGP ERFORMED BY: CB [facility] Wwnknl4[address] RoadDublin [place] [id number] Protein [Mass/Vol] 7.3 g/dL Normal 6.0-8.5 [facility]; [facility] Work Phone: Comment on above: PATIENT NOT FASTINGP ERFORMED BY: BILLIE Labtheresa SchafferNacipx8[address] RoadDublin [place] [id number] Sodium [Moles/Vol] 141 mmol/L Normal 134-144 [facility]; [facility] Work Phone: Comment on above: PATIENT NOT FASTINGP ERFORMED BY: BILLIE [employer]co[facility] SchafferEuqswm9[address] RoadDublin [place] [id number] Urea nitrogen [Mass/Vol] 15 mg/dL Normal 6-24 [facility]; [facility] Work Phone: Comment on above: PATIENT NOT FASTINGP ERFORMED BY: BILLIE [facility] Dzczss8332 [address] RoadDublin [place] [id number] Urea nitrogen/Creatinine [Mass ratio] 15 mg/mg Normal 9-20 [facility]; [facility] Work Phone: Comment on above: PATIENT NOT FASTINGP ERFORMED BY: BILLIE Labtheresa SchafferPloqeh38[address] RoadDublin [place] [id number] MICROALBUMINOrdered By: Syst em Job Checker on 12-17-2022 Albumin DL <= 20 mg/L (U) [Mass/Vol] 7.6 ug/mL Normal Comprehensiv e [facility]; [facility] Work Phone: Comment on above: PATIENT NOT FASTINGP ERFORMED BY: BILLIE [facility] Ipekln9350 [address] RoadDublin [place] [id number] Albumin/Creatinine (U) [Mass ratio] 5 {mg/g_creat} Normal 0-29 [facility]; [facility] Work Phone: Comment on above: Normal: 0 - 29 Moder ately increased: 30 - 300 Severely increased: >300 PATIENT NOT FASTINGP ERFORMED BY: BILLIE [facility] Dsrvfi9607 [address] RoadDublin [place] [id number] Creatinine (U) [Mass/Vol] 156.3 mg/dL Normal [facility]; [facility] Work Phone: Comment on above: PATIENT NOT FASTINGP ERFORMED BY: BILLIE [facility] Zrsmte9587 [address] RoadDublin [place] [id number] Sed Rate Erythrocyte ([id number]) Ordered By: [employer] Artistic Director on 12-17-2022 ESR (Bld) [Velocity] 27 mm/h Normal 0-30 Comp rehensive Internal Medicine; [facility] Work Phone: Comment on above: PATIENT NOT FASTINGP ERFORMED BY: BILLIE [facility] Eyvmvp7466 [address] RoadDublin [place] [id number] TSH ([id number])Ordered By: Parantez m Job Checker on 12-17-2022 TSH Qn 1.580 {uIU/mL} Normal 0.450-4.50 0 [facility]; [facility] Work Phone: Comment on above: PATIENT NOT FASTINGP ERFORMED BY: BILLIE [facility] Mhakcx7149 [address] RoadDublin [place] [id number] URINALYSIS, W/ MICRO ([id number]) Ordered By: [employer] Artistic Director on 12-17-2022 Appearance (U) Clear Normal Comprehens nini Internal Medicine; [facility] Work Phone: Comment on above: PATIENT NOT FASTINGP ERFORMED BY: BILLIE [facility] Osuyyb[address] RoadDublin [place] [id number] Bilirubin Ql (U) Negative Normal Comprehe nsive Internal Medicine; [facility] Work Phone: Comment on above: PATIENT NOT FASTINGP ERFORMED BY: CB [facility] Eiwwqc7799 [address] RoadDublin [place] [id number] Color (U) Yellow Normal [facility]; [facility] Work Phone: Comment on above: PATIENT NOT FASTINGP ERFORMED BY: CB [facility] Cjbivo9[address] RoadDublin [place] [id number] Glucose Ql (U) Negative Normal Comprehens nini [facility]; [facility] Work Phone: Comment on above: PATIENT NOT FASTINGP ERFORMED BY: CB [facility] Baansf2844 [address] RoadDublin [place] [id number] Hemoglobin Ql (U) Negative Normal Compreh ensive Internal Medicine; [facility] Work Phone: Comment on above: PATIENT NOT FASTINGP ERFORMED BY: BILLIE [facility] WhitePoaxxn4[address] RoadDublin [place] [id number] Ketones Ql (U) Negative Normal Comprehens nini [facility]; [facility] Work Phone: Comment on above: PATIENT NOT FASTINGP ERFORMED BY: BILLIE [facility] Gwqalx1668 [address] RoadDublin [place] [id number] Leukocyte esterase Test strip Ql (U) Negative Normal [facility]; [facility] Work Phone: Comment on above: PATIENT NOT FASTINGP ERFORMED BY: BILLIE [facility] Fjhhep3323 [address] RoadDublin [place] [id number] Microscopic observation LM Nom (Urine sed) MICRON Normal [facility]; [facility] Work Phone: Comment on above: Microscopic follows if indicated. PATIENT NOT FASTINGP ERFORMED BY: BILLIE [facility] Xrxsvq0439 [address] RoadDublin [place] [id number] Microscopic observation LM Nom (Urine sed) See below: Normal [facility]; [facility] Work Phone: Comment on above: Microscopic was delores cated and was performed. PATIENT NOT FASTINGP ERFORMED BY: BILLIE [facility] Redwur13[address] RoadDublin [place] [id number] Nitrite Ql (U) Negative Normal Comprehens nini [facility]; [facility] Work Phone: Comment on above: PATIENT NOT FASTINGP ERFORMED BY: BILLIE [facility] Oubwds[address] [facility] JacksonDublin [place] [id number] pH (U) 7.5 [pH] Normal 5.0-7.5 [facility]; [facility] Work Phone: Comment on above: PATIENT NOT FASTINGP ERFORMED BY: BILLIE [facility] Gorddb3155 [address] RoadDublin [place] [id number] Protein Ql (U) Negative Normal Comprehens nini [facility]; [facility] Work Phone: Comment on above: PATIENT NOT FASTINGP ERFORMED BY: BILLIE [facility] [address]lfw[address] [employer] TechnologyPending sale to [facility] [id number] Specific gravity (U) [Rel density] 1.022 1 Normal 1.005-1.03 0 [facility]; [facility] Work Phone: Comment on above: PATIENT NOT FASTINGP ERFORMED BY: [facility] Dvjgil8409 [facility] [id number] Urobilinogen (U) [Mass/Vol] 0.2 mg/dL Normal 0.2-1.0 [facility]; [facility] Work Phone: Comment on above: PATIENT NOT FASTINGP ERFORMED BY: LabGeosophic Sxbrvr0961 [facility] [id number] INHOUSE COVID 19 (ONLY) RAPI D ([id number])Ordered By: Alice Pitts on 07-12-2022 SARS-CoV-2 (COVID-19) RNA KRISTY+probe Ql (Unsp spec) Negative Normal [facility]; [facility] Work Phone: Inhouse FLU A+B DIRECT AG, ( RAPID) ([id number])Ordered By: Alice Pitts on 07-12-2022 FLUAV+FLUBV Ag Ql (Unsp spec) Negative Normal [facility]; [facility] Work Phone: CBC, PLATELETS & MANUAL DIFF ([id number])Ordered By: [employer] Artistic Director on 01-01-2022 Basophils (Bld) [#/Vol] 0.1 10*3/uL Normal 0.0-0.2 [facility]; [facility] Work Phone: Comment on above: PATIENT NOT FASTINGP ERFORMED BY: [facility] [address]hqslw[address] [facility] [id number] Basophils/100 WBC (Bld) 1 % Normal [facility]; [facility] Work Phone: Comment on above: PATIENT NOT FASTINGP ERFORMED BY: [facility] Jbljgj[address] [facility] [id number] Eosinophils (Bld) [#/Vol] 0.2 10*3/uL Normal 0.0-0.4 [facility]; [facility] Work Phone: Comment on above: PATIENT NOT FASTINGP ERFORMED BY: BILLIE [facility] WhiteGzsraa5481 [address] RoadDublin [place] [id number] Eosinophils/100 WBC (Bld) 3 % Normal [facility]; [facility] Work Phone: Comment on above: PATIENT NOT FASTINGP ERFORMED BY: CB [facility] Nmfcwd6005 [address] RoadDublin [place] [id number] Erythrocyte distribution width (RBC) [Ratio] 13.1 % Normal 11.6-15.4 [facility]; [facility] Work Phone: Comment on above: PATIENT NOT FASTINGP ERFORMED BY: BILLIE [facility] Uqskkj3729 [address]Dublin [place] [id number] Hematocrit (Bld) [Volume fraction] 47.8 % Normal 37.5-51.0 [facility]; [facility] Work Phone: Comment on above: PATIENT NOT FASTINGP ERFORMED BY: CB [facility] Gkcbqb6114 [address]Dublin [place] [id number] Hemoglobin (Bld) [Mass/Vol] 15.8 g/dL Normal 13.0-17.7 [facility]; [facility] Work Phone: Comment on above: PATIENT NOT FASTINGP ERFORMED BY: CB [facility] Ocgtyb0884 [address] RoadDublin [place] [id number] Immature granulocytes (Bld) [#/Vol] 0.1 10*3/uL Normal 0.0-0.1 [facility]; [facility] Work Phone: Comment on above: PATIENT NOT FASTINGP ERFORMED BY: CB [facility] Wwytbb2136 [address] RoadDublin [place] [id number] Immature granulocytes/100 WBC (Bld) 1 % Normal [facility]; [facility] Work Phone: Comment on above: PATIENT NOT FASTINGP ERFORMED BY: CB [facility] Knxacv5843 [address] RoadDublin [place] [id number] Lymphocytes (Bld) [#/Vol] 2.7 10*3/uL Normal 0.7-3.1 [facility]; [facility] Work Phone: Comment on above: PATIENT NOT FASTINGP ERFORMED BY: BILLIE [facility] Dcdgwj6832 [address] RoadDublin [place] [id number] Lymphocytes/100 WBC (Bld) 29 % Normal [facility]; [facility] Work Phone: Comment on above: PATIENT NOT FASTINGP ERFORMED BY: CB [facility] Jqtftg2425 [address] RoadDublin [place] [id number] MCH (RBC) [Entitic mass] 28.8 pg Normal 26.6-33.0 [facility]; [facility] Work Phone: Comment on above: PATIENT NOT FASTINGP ERFORMED BY: BILLIE [facility] Zxfzxe8066 [address] RoadDublin [place] [id number] MCHC (RBC) [Mass/Vol] 33.1 g/dL Normal 31.5-35.7 [facility]; [facility] Work Phone: Comment on above: PATIENT NOT FASTINGP ERFORMED BY: BILLIE [facility] Pgtdph2411 [address]Dublin [place] [id number] MCV (RBC) [Entitic vol] 87 fL Normal 79-97 [facility]; [facility] Work Phone: Comment on above: PATIENT NOT FASTINGP ERFORMED BY: CB [facility] Egbyjj5172 [address] RoadDublin [place] [id number] Monocytes (Bld) [#/Vol] 1.0 10*3/uL Abnormal 0.1-0.9 [facility]; [facility] Work Phone: Comment on above: PATIENT NOT FASTINGP ERFORMED BY: CB [facility] Kpdlki4421 [address] RoadDublin [place] [id number] Monocytes/100 WBC (Bld) 10 % Normal [facility]; [facility] Work Phone: Comment on above: PATIENT NOT FASTINGP ERFORMED BY: CB [facility] Qmgnqm3134 [address]Dublin [place] [id number] Neutrophils (Bld) [#/Vol] 5.2 10*3/uL Normal 1.4-7.0 [facility]; [facility] Work Phone: Comment on above: PATIENT NOT FASTINGP ERFORMED BY: BILLIE [facility] WhiteRcqgjo8785 [address] RoadDublin [place] [id number] Neutrophils/100 WBC (Bld) 56 % Normal [facility]; [facility] Work Phone: Comment on above: PATIENT NOT FASTINGP ERFORMED BY: CB [facility] Csymli7668 [address] RoadDublin [place] [id number] Platelets (Bld) [#/Vol] 220 10*3/uL Normal 150-450 [facility]; [facility] Work Phone: Comment on above: PATIENT NOT FASTINGP ERFORMED BY: BILLIE [facility] Bgolan7369 [address] RoadDublin [place] [id number] RBC (Bld) [#/Vol] 5.49 10*6/uL Normal 4.14-5.80 [facility]; [facility] Work Phone: Comment on above: PATIENT NOT FASTINGP ERFORMED BY: BILLIE [facility] Dxiukv2817 [address] RoadDublin [place] [id number] WBC (Bld) [#/Vol] 9.2 10*3/uL Normal 3.4-10.8 [facility]pre [facility]; [facility] Work Phone: Comment on above: PATIENT NOT FASTINGP ERFORMED BY: CB [facility] Kyuhrd6684 [address] RoadDublin [place] [id number] LIPID PANEL (06909)Ordered B y: [employer] Artistic Director on 01-01-2022 Cholesterol [Mass/Vol] 230 mg/dL Abnormal 100-199 [facility]; [facility] Work Phone: Comment on above: PATIENT NOT FASTINGP ERFORMED BY: BILLIE [facility] Pdftwi2209 [address]Dublin [place] [id number] Cholesterol in HDL [Mass/Vol] 45 mg/dL Normal [facility]; [facility] Work Phone: Comment on above: PATIENT NOT FASTINGP ERFORMED BY: BILLIE [facility] Lotusc2568 [address]Dublin [place] [id number] Triglyceride [Mass/Vol] 182 mg/dL Abnormal 0-149 [facility]; [facility] Work Phone: Comment on above: PATIENT NOT FASTINGP ERFORMED BY: BILLIE [facility] Tmjjxo2554 [address]Dublin [place] [id number] LIPID PANEL (23516) 33 mg/dL Normal 5-40 [facility]; [facility] Work Phone: Comment on above: PATIENT NOT FASTINGP ERFORMED BY: CB [facility] Uvzflr2122 [address]Dublin [place] [id number] LIPID PANEL (02020) 152 mg/dL Abnormal 0-99 [facility]; [facility] Work Phone: Comment on above: PATIENT NOT FASTINGP ERFORMED BY: BILLIE [facility] SchafferDhavyt8722 [address]blin [place] [id number] LIPID PANEL (47832) 3.4 {ratio} Normal 0.0-3.6 [facility]; [facility] Work Phone: Comment on above: LDL/HDL Ratio Men Wo men 1/2 Avg.Risk 1.0 1.5 Avg.Risk 3.6 3.2 2X Avg.Risk 6.2 5.0 3X Avg.Risk 8.0 6.1 PATIENT NOT FASTINGP ERFORMED BY: BILLIE [facility] Ibvmgh[address] [facility]blin [place] [id number] METABOLIC PANEL, COMPREHENSI VE (04861)Ordered By: [employer] Artistic Director on 01-01-2022 Albumin [Mass/Vol] 4.6 g/dL Normal 3.8-4.9 [facility]; [facility] Work Phone: Comment on above: PATIENT NOT FASTINGP ERFORMED BY: BILLIE [facility] Nzmgpy3651 [address] RoadDublin [place] [id number] Albumin/Globulin [Mass ratio] 1.6 {ratio} Normal 1.2-2.2 [facility]; [facility] Work Phone: Comment on above: PATIENT NOT FASTINGP ERFORMED BY: CB [facility] Lzjglr5730 [address] RoadDublin [place] [id number] ALP [Catalytic activity/Vol] 114 U/L Normal 44-121 [facility]; [facility] Work Phone: Comment on above: PATIENT NOT FASTINGP ERFORMED BY: CB [facility] Dqvhdy8870 [address] RoadDublin [place] [id number] ALT [Catalytic activity/Vol] 37 U/L Normal 0-44 [facility]; [facility] Work Phone: Comment on above: PATIENT NOT FASTINGP ERFORMED BY: CB [facility] Gjadcy3125 [address] RoadDublin [place] [id number] AST [Catalytic activity/Vol] 36 U/L Normal 0-40 [facility]; [facility] Work Phone: Comment on above: PATIENT NOT FASTINGP ERFORMED BY: CB [facility] Zpgdfh4677 [address] RoadDublin [place] [id number] Bilirubin [Mass/Vol] 0.9 mg/dL Normal 0.0-1.2 Comp rehensive Internal Medicine; [facility] Work Phone: Comment on above: PATIENT NOT FASTINGP ERFORMED BY: CB [facility] SchafferFgxkgt1187 [address] RoadDublin [place] [id number] Calcium [Mass/Vol] 10.0 mg/dL Normal 8.7-10.2 [facility]; [facility] Work Phone: Comment on above: PATIENT NOT FASTINGP ERFORMED BY: CB [facility] Mfgntf5305 [address]Dublin [place] [id number] Chloride [Moles/Vol] 99 mmol/L Normal 96-106 Comp rehensive [facility]; [facility] Work Phone: Comment on above: PATIENT NOT FASTINGP ERFORMED BY: CB [facility] Zzdzgw7517 [address] RoadDublin [place] [id number] CO2 [Moles/Vol] 23 mmol/L Normal 20-29 Comprehen [facility]; [facility] Work Phone: Comment on above: PATIENT NOT FASTINGP ERFORMED BY: BILLIE [facility] Uryuks8239 [address] RoadDublin [place] [id number] Creatinine [Mass/Vol] 1.07 mg/dL Normal 0.76-1.27 [facility]; [facility] Work Phone: Comment on above: PATIENT NOT FASTINGP ERFORMED BY: CB [facility] Objksg8877 [address] RoadDublin [place] [id number] GFR/1.73 sq M.predicted among non-blacks MDRD (S/P/Bld) [Vol rate/Area] 83 mL/min/{1.73_m2} Normal Comprehensiv e [facility]; [facility] Work Phone: Comment on above: PATIENT NOT FASTINGP ERFORMED BY: BILLIE [facility] Hdkxhz4001 [address] RoadDublin [place] [id number] Globulin (S) [Mass/Vol] 2.9 g/dL Normal 1.5-4.5 [facility]; [facility] Work Phone: Comment on above: PATIENT NOT FASTINGP ERFORMED BY: CB [facility] Izjnsy7762 [address] RoadDublin [place] [id number] Glucose [Mass/Vol] 86 mg/dL Normal 65-99 [facility]; [facility] Work Phone: Comment on above: PATIENT NOT FASTINGP ERFORMED BY: CB [facility] Kfoibn8966 [address] RoadDublin [place] [id number] Potassium [Moles/Vol] 5.1 mmol/L Normal 3.5-5.2 [facility]; [facility] Work Phone: Comment on above: PATIENT NOT FASTINGP ERFORMED BY: CB [facility] Whwmmi7303 [address] RoadDublin [place] [id number] Protein [Mass/Vol] 7.5 g/dL Normal 6.0-8.5 [facility]; [facility] Work Phone: Comment on above: PATIENT NOT FASTINGP ERFORMED BY: CB [facility] Ezavxe7088 [address] RoadDublin [place] [id number] Sodium [Moles/Vol] 138 mmol/L Normal 134-144 Compre [facility]; [facility] Work Phone: Comment on above: PATIENT NOT FASTINGP ERFORMED BY: [facility]6370 [facility] [id number] Urea nitrogen [Mass/Vol] 13 mg/dL Normal 6-24 [facility]; [facility] Work Phone: Comment on above: PATIENT NOT FASTINGP ERFORMED BY: [facility]6370 [facility] [id number] Urea nitrogen/Creatinine [Mass ratio] 12 mg/mg Normal 9-20 [facility]; [facility] Work Phone: Comment on above: PATIENT NOT FASTINGP ERFORMED BY: [place] [id number] [facility] [id number] TSH (THYROID STIMULATING HOR REGLA) (07081)Ordered By: [employer] Artistic Director on 01-01-2022 TSH Qn 2.230 {uIU/mL} Normal 0.450-4.50 0 [facility]; [facility] Work Phone: Comment on above: PATIENT NOT FASTINGP ERFORMED BY: [place] [id number] [facility] [id number] INHOUSE COVID 19 (ONLY) RAPI D (32881)on 06-19-2021 SARS-CoV-2 (COVID-19) RNA KRISTY+probe Ql (Unsp spec) Positive Normal [facility]; [facility] Work Phone: 2018 Novel Coronavirus (COVI D-19), KRISTY (67090)Ordered By: [employer] Artistic Director on 05-25-20202018 Novel Coronavirus (COVID-19), KRISTY ([id number]) Not Detected Normal [facility]; [facility] Work Phone: Comment on above: This nucleic acid am plification test was developed and its performancecharacteristics determined by [facility] [employer]. Nucleic acidamplification tests include PCR and TMA. [...] assay. PATIENT NOT FASTINGP ERFORMED BY: BILLIE [employer] Nidpqh4962 [facility] [id number] 2018 Novel Coronavirus (COVID-19), KRISTY ([id number]) Not detected Normal [facility]; [facility] Work Phone: Comment on above: This nucleic acid am plification test was developed and its performancecharacteristics determined by [facility]. Nucleic acidamplification tests include PCR and TMA. [...] PATIENT NOT FASTINGP ERFORMED BY: CB [facility] Bpfpzf9954 [address]Dublin [place] [id number] CBC, Platelets & Auto Diff ( 71365)Ordered By: [employer] Artistic Director on 04-06-2019 Basophils (Bld) [#/Vol] 0.1 {x10E3/uL} Normal 0.0-0.2 [facility] Work Phone: Comment on above: PATIENT NOT FASTINGP ERFORMED BY: CB [facility] Hyfzew9458 [address]blin [place] [id number] Basophils (Bld) [#/Vol] 0.1 10*3/uL Normal 0.0-0.2 [facility]; [facility] Work Phone: Comment on above: PATIENT NOT FASTINGP ERFORMED BY: [facility] Wdxnhm3822 M[address] RoadHugh Chatham [facility] Hospitalin [place] [id number] Basophils/100 WBC (Bld) 1 % Normal [facility] Work Phone: Comment on above: PATIENT NOT FASTINGP ERFORMED BY: [facility] [address]wvqaf[address] [facility]in [place] [id number] Eosinophils (Bld) [#/Vol] 0.3 {x10E3/uL} Normal 0.0-0.4 [facility] Work Phone: Comment on above: PATIENT NOT FASTINGP ERFORMED BY: [facility] Gctulf[address] [facility]bl[facility] [place] [id number] Eosinophils (Bld) [#/Vol] 0.3 10*3/uL Normal 0.0-0.4 [facility]; [facility] Work Phone: Comment on above: PATIENT NOT FASTINGP ERFORMED BY: CB [facility] Fiolrk[address] [facility]bl[facility] [place] [id number] Eosinophils/100 WBC (Bld) 4 % Normal [facility] Work Phone: Comment on above: PATIENT NOT FASTINGP ERFORMED BY: CB [facility] Bwwiwg0[address] [facility]blin [place] [id number] Erythrocyte distribution width (RBC) [Ratio] 14.8 % Normal 12.3-15.4 [facility] Work Phone: Comment on above: PATIENT NOT FASTINGP ERFORMED BY: BILLIE White6370 [address]Dublin [place] [id number] Hematocrit (Bld) [Volume fraction] 48.7 % Normal 37.5-51.0 [facility] Work Phone: Comment on above: PATIENT NOT FASTINGP ERFORMED BY: CB [facility] Vdqobr7180 [address] RoadDublin [place] [id number] Hemoglobin (Bld) [Mass/Vol] 16.1 g/dL Normal 13.0-17.7 [facility] Work Phone: Comment on above: PATIENT NOT FASTINGP ERFORMED BY: BILLIE [facility] SchafferAfiigw2742 [address]blin [place] [id number] Immature granulocytes (Bld) [#/Vol] 0.1 {x10E3/uL} Normal 0.0-0.1 [facility] Work Phone: Comment on above: PATIENT NOT FASTINGP ERFORMED BY: BILLIE [facility] Ijswdb9301 [address]blin [place] [id number] Immature granulocytes (Bld) [#/Vol] 0.1 10*3/uL Normal 0.0-0.1 [facility]; [facility] Work Phone: Comment on above: PATIENT NOT FASTINGP ERFORMED BY: BILLIE [facility] Rnbwho9425 [address] RoadDublin [place] [id number] Immature granulocytes/100 WBC (Bld) 1 % Normal [facility] Work Phone: Comment on above: PATIENT NOT FASTINGP ERFORMED BY: CB [facility] Pdusxe8257 [address] RoadDublin [place] [id number] Lymphocytes (Bld) [#/Vol] 2.3 {x10E3/uL} Normal 0.7-3.1 [facility] Work Phone: Comment on above: PATIENT NOT FASTINGP ERFORMED BY: CB [facility] Nodoqc3032 [address] RoadDublin [place] [id number] Lymphocytes (Bld) [#/Vol] 2.3 10*3/uL Normal 0.7-3.1 [facility]; [facility] Work Phone: Comment on above: PATIENT NOT FASTINGP ERFORMED BY: BILLIE [facility] SchafferVcruyw1513 [address]blin [place] [id number] Lymphocytes/100 WBC (Bld) 30 % Normal [facility] Work Phone: Comment on above: PATIENT NOT FASTINGP ERFORMED BY: CB [facility] Kiboyx[address] [facility] [id number] MCH (RBC) [Entitic mass] 28.4 pg Normal 26.6-33.0 [facility] Work Phone: Comment on above: PATIENT NOT FASTINGP ERFORMED BY: [facility] Qectki[address] [facility] [id number] MCHC (RBC) [Mass/Vol] 33.1 g/dL Normal 31.5-35.7 [facility] Work Phone: Comment on above: PATIENT NOT FASTINGP ERFORMED BY: [facility] Lscabl[address] [facility] [id number] MCV (RBC) [Entitic vol] 86 fL Normal 79-97 [facility] Work Phone: Comment on above: PATIENT NOT FASTINGP ERFORMED BY: [facility] Totloo[address] [facility] [id number] Monocytes (Bld) [#/Vol] 0.5 {x10E3/uL} Normal 0.1-0.9 [facility] Work Phone: Comment on above: PATIENT NOT FASTINGP ERFORMED BY: CB [facility] Avqmvo[address] [facility] JacksonDublin [place] [id number] Monocytes (Bld) [#/Vol] 0.5 10*3/uL Normal 0.1-0.9 [facility]; [facility] Work Phone: Comment on above: PATIENT NOT FASTINGP ERFORMED BY: CB [facility] Tpzqtr[address] [facility] [id number] Monocytes/100 WBC (Bld) 7 % Normal [facility] Work Phone: Comment on above: PATIENT NOT FASTINGP ERFORMED BY: CB [facility] Uuemav6255 [address]Dublin [place] [id number] Neutrophils (Bld) [#/Vol] 4.4 {x10E3/uL} Normal 1.4-7.0 [facility] Work Phone: Comment on above: PATIENT NOT FASTINGP ERFORMED BY: CB [facility] Vlgwyw4490 [address]Dublin [place] [id number] Neutrophils (Bld) [#/Vol] 4.4 10*3/uL Normal 1.4-7.0 [facility]; [facility] Work Phone: Comment on above: PATIENT NOT FASTINGP ERFORMED BY: CB [facility] Etfnzm9140 [address]Dublin [place] [id number] Neutrophils/100 WBC (Bld) 57 % Normal [facility] Work Phone: Comment on above: PATIENT NOT FASTINGP ERFORMED BY: CB [facility] Mtdpyp7596 [address] RoadDublin [place] [id number] Platelets (Bld) [#/Vol] 252 {x10E3/uL} Normal 150-450 [facility] Work Phone: Comment on above: PATIENT NOT FASTINGP ERFORMED BY: CB [facility] Xklpup5183 [address] RoadDublin [place] [id number] Platelets (Bld) [#/Vol] 252 10*3/uL Normal 150-450 [facility]; [facility] Work Phone: Comment on above: PATIENT NOT FASTINGP ERFORMED BY: CB [facility] Hibhev3627 [address] RoadDublin [place] [id number] RBC (Bld) [#/Vol] 5.67 {x10E6/uL} Normal 4.14-5.80 [facility] Internal Medicine Work Phone: Comment on above: PATIENT NOT FASTINGP ERFORMED BY: CB [facility] Mlojws2113 [address]Dublin [place] [id number] RBC (Bld) [#/Vol] 5.67 10*6/uL Normal 4.14-5.80 [facility] Internal Medicine; [facility] Work Phone: Comment on above: PATIENT NOT FASTINGP ERFORMED BY: [facility]6370 [facility] [id number] WBC (Bld) [#/Vol] 7.5 {x10E3/uL} Normal 3.4-10.8 [facility] Internal Medicine Work Phone: Comment on above: PATIENT NOT FASTINGP ERFORMED BY: [facility]6370 [facility] [id number] WBC (Bld) [#/Vol] 7.5 10*3/uL Normal 3.4-10.8 [facility] Internal [facility]; [facility] Work Phone: Comment on above: PATIENT NOT FASTINGP ERFORMED BY: [facility]6370 [facility] [id number] Influenza A&B Viral Culture (99913)Ordered By: [employer] Artistic Director on 04-06-2019 FLUV identified Org specific cx Nom (Unsp spec) FLUABN Normal [facility] Work Phone: Comment on above: Negative:No Influenz a A or B detected. PATIENT NOT FASTINGP ERFORMED BY: [facility]6370 [facility] [id number] Information: SRC:NL Metabolic Panel, Comprehensi ve (04358)Ordered By: [employer] Artistic Director on 04-06-2019 Albumin [Mass/Vol] 4.3 g/dL Normal 3.5-5.5 [facility] Internal Medicine Work Phone: Comment on above: PATIENT NOT FASTINGP ERFORMED BY: [facility]6370 [facility] [id number] Albumin/Globulin [Mass ratio] 1.2 {ratio} Normal 1.2-2.2 [facility] Internal Medicine Work Phone: Comment on above: PATIENT NOT FASTINGP ERFORMED BY: [facility] Mzugkm1122 [address] RoadDublin [place] [id number] ALP [Catalytic activity/Vol] 118 [iU]/L Abnormal 39-117 [facility] Work Phone: Comment on above: PATIENT NOT FASTINGP ERFORMED BY: CB [facility] Txpytk4294 [address] RoadDublin [place] [id number] ALP [Catalytic activity/Vol] 118 U/L Abnormal 39-117 [facility]; [facility] Work Phone: Comment on above: PATIENT NOT FASTINGP ERFORMED BY: CB [facility] Kqnejq2910 [address] RoadDublin [place] [id number] ALT [Catalytic activity/Vol] 48 [iU]/L Abnormal 0-44 [facility] Work Phone: Comment on above: PATIENT NOT FASTINGP ERFORMED BY: [facility] Hpfoae8091 [address] RoadDublin [place] [id number] ALT [Catalytic activity/Vol] 48 U/L Abnormal 0-44 [facility]; [facility] Work Phone: Comment on above: PATIENT NOT FASTINGP ERFORMED BY: [facility] Zviohy5727 [address] RoadDublin [place] [id number] AST [Catalytic activity/Vol] 34 [iU]/L Normal 0-40 [facility] Work Phone: Comment on above: PATIENT NOT FASTINGP ERFORMED BY: [facility] Igngaj4064 [address] RoadDublin [place] [id number] AST [Catalytic activity/Vol] 34 U/L Normal 0-40 [facility]; [facility] Work Phone: Comment on above: PATIENT NOT FASTINGP ERFORMED BY: CB [facility] Pldfqt0541 [address] RoadDublin [place] [id number] Bilirubin [Mass/Vol] 0.3 mg/dL Normal 0.0-1.2 Comp [facility]eren[facility] Internal Medicine Work Phone: Comment on above: PATIENT NOT FASTINGP ERFORMED BY: CB [facility] Cktshu3364 [address] RoadDublin [place] [id number] Calcium [Mass/Vol] 9.4 mg/dL Normal 8.7-10.2 [facility] Internal Medicine Work Phone: Comment on above: PATIENT NOT FASTINGP ERFORMED BY: CB [facility] Lurlex8906 [address]Dublin [place] [id number] Chloride [Moles/Vol] 107 mmol/L Abnormal 96-106 Comp rehensive Internal Medicine Work Phone: Comment on above: PATIENT NOT FASTINGP ERFORMED BY: CB [facility] Urfzkc6192 [address]Dublin [place] [id number] CO2 [Moles/Vol] 22 mmol/L Normal 20-29 [facility]hen [facility] Internal Medicine Work Phone: Comment on above: PATIENT NOT FASTINGP ERFORMED BY: CB [facility] Gdjuer1051 [address] RoadDublin [place] [id number] Creatinine [Mass/Vol] 1.10 mg/dL Normal 0.76-1.27 [facility] Work Phone: Comment on above: PATIENT NOT FASTINGP ERFORMED BY: CB [facility] Myoqbw6842 [address] RoadDublin [place] [id number] GFR/1.73 sq M predicted among blacks CKD-EPI (S/P/Bld) [Vol rate/Area] 89 mL/min/1.73 Normal [facility] Work Phone: Comment on above: PATIENT NOT FASTINGP ERFORMED BY: CB [facility] Qwdosk7575 [address]Dublin [place] [id number] GFR/1.73 sq M predicted among non-blacks CKD-EPI (S/P/Bld) [Vol rate/Area] 77 mL/min/1.73 Normal [facility] Work Phone: Comment on above: PATIENT NOT FASTINGP ERFORMED BY: CB [facility] Daqpsj7273 [address] RoadDublin [place] [id number] Globulin (S) [Mass/Vol] 3.5 g/dL Normal 1.5-4.5 [facility] Work Phone: Comment on above: PATIENT NOT FASTINGP ERFORMED BY: CB [facility] Pwvzie2376 [address] RoadDublin [place] [id number] Glucose [Mass/Vol] 90 mg/dL Normal 65-99 [facility] Internal Medicine Work Phone: Comment on above: PATIENT NOT FASTINGP ERFORMED BY: BILLIE [facility] Gldnwb1886 [address] RoadHugh Chatham Memorial Hospitalin [place] [id number] Potassium [Moles/Vol] 5.1 mmol/L Normal 3.5-5.2 [facility] Work Phone: Comment on above: PATIENT NOT FASTINGP ERFORMED BY: CB [facility] Eehcvf[address] [facility] [place] [id number] Protein [Mass/Vol] 7.8 g/dL Normal 6.0-8.5 [facility] Internal Medicine Work Phone: Comment on above: PATIENT NOT FASTINGP ERFORMED BY: BILLIE [facility] [id number] [facility] [place] [id number] Sodium [Moles/Vol] 146 mmol/L Abnormal 134-144 [facility] Work Phone: Comment on above: PATIENT NOT FASTINGP ERFORMED BY: [facility] [id number] [facility] [place] [id number] Urea nitrogen [Mass/Vol] 11 mg/dL Normal 6-24 [facility] Work Phone: Comment on above: PATIENT NOT FASTINGP ERFORMED BY: [facility] [id number] [facility] [id number] Urea nitrogen/Creatinine [Mass ratio] 10 mg/mg Normal 9-20 [facility] Work Phone: Comment on above: PATIENT NOT FASTINGP ERFORMED BY: CB [facility] [id number] [facility] [place] [id number] Rapid Flu (76157 x 2)on 03-26 FLUAV Ag IA Ql (Throat) Negative Normal [facility] Work Phone: FLUAV Ag IA Ql (Throat) Negative Normal [facility]; [facility] Work Phone: Urinalysis, Office ([id number])on 02-23-2015 Bilirubin Ql (U) Negative Normal Comprehe [...] index (BMI) [Ratio] 49.81 kg/m2 Jamila Slarb BROADCAST METEOROLOGIST [facility]; [facility] Work Phone: 12-16-2022 15:42-0400 Body surface area Derived from formula 2.64 m2 Jamila Slarb BROADCAST METEOROLOGIST [facility]; [facility] Work Phone: 12-16-2022 15:42-0400 Body temperature 97.9 [degF] Jamila Slarb BROADCAST METEOROLOGIST [facility]; [facility] Work Phone: Comment on above: Method: Temporal 12-16-2022 15:42-0400 Body weight 157.46 kg Jamila Slarb BROADCAST METEOROLOGIST [facility]; [facility] Work Phone: 12-16-2022 15:42-0400 Diastolic blood pressure 82 mm[Hg] Jamila Slarb BROADCAST METEOROLOGIST [facility]; [facility] Work Phone: Comment on above: Patient Position: Sitting; Cuff Location : Left Arm; Cuff Size: Standard 12-16-2022 15:42-0400 Heart rate 118 /min Jamila Slarb BROADCAST METEOROLOGIST [facility]; [facility] Work Phone: Comment on above: Pattern: Regular 12-16-2022 15:42-0400 Respiratory rate 16 /min Jamila Slarb BROADCAST METEOROLOGIST [facility]; [facility] Work Phone: Comment on above: Pattern: Unlabored 12-16-2022 15:42-0400 SaO2% (BldA) [Mass fraction] 99 % Jamila Slarb BROADCAST METEOROLOGIST [facility]; [facility] Work Phone: Comment on above: Room air 12-16-2022 15:42-0400 Systolic blood pressure 142 mm[Hg] Jamila Slarb BROADCAST METEOROLOGIST [facility]; [facility] Work [...] accurate 01-08-2022 14:34-0400 Body height 177.8 cm [facility]; [facility] Work Phone: 01-08-2022 14:34-0400 Body mass index (BMI) [Ratio] 49.81 kg/m2 [facility]; [facility] Work Phone: 01-08-2022 14:34-0400 Body surface area Derived from formula 2.64 m2 [facility] Internal Medicine; [facility] Work Phone: 01-08-2022 14:34-0400 Body temperature 96.9 [degF] [facility] Comprehens[facility] e Internal Medicine; [facility] Work Phone: 01-08-2022 14:34-0400 Body weight 157.46 kg [facility]; [facility] Work Phone: 01-08-2022 14:34-0400 Heart rate 75 /min [facility]; [facility] Work Phone: Comment on above: Pattern: Regular 01-08-2022 14:34-0400 Respiratory rate 18 /min [facility] Comprehens[facility] Internal Medicine; [facility] Work Phone: Comment on above: Pattern: Unlabored 01-08-2022 14:34-0400 SaO2% (BldA) [Mass fraction] 97 % [facility]; [facility] Work Phone: Comment on above: Room air 12-31-2021 14:33-0400 Body height 177.8 cm Jamila Costa LPN [facility]; [facility] Work Phone: 12-31-2021 14:33-0400 Body mass index (BMI) [Ratio] 50.08 kg/m2 Jamila Rodrigorb BROADCAST METEOROLOGIST [facility]; [facility] Work Phone: 12-31-2021 14:33-0400 Body surface area Derived from formula 2.64 m2 Jamila Slarb BROADCAST METEOROLOGIST [facility]; [facility] Work Phone: 12-31-2021 14:33-0400 Body temperature 97.2 [degF] Jamila Slarb BROADCAST METEOROLOGIST [facility]; [facility] Work Phone: 12-31-2021 14:33-0400 Body weight 158.31 kg Jamila Slarb BROADCAST METEOROLOGIST [facility]; [facility] Work Phone: 12-31-2021 14:33-0400 Diastolic blood pressure 98 mm[Hg] Jamila Slarb BROADCAST METEOROLOGIST [facility]; [facility] Work Phone: Comment on above: Patient Position: Sitting; Cuff Location : Left Arm; Cuff Size: Standard 12-31-2021 14:33-0400 Heart rate 98 /min Jamila Rodrigorb BROADCAST METEOROLOGIST [facility]; [facility] Work Phone: Comment on above: Pattern: Regular 12-31-2021 14:33-0400 Respiratory rate 17 /min Jamila Slarb BROADCAST METEOROLOGIST [facility]; [facility] Work Phone: Comment on above: Pattern: Unlabored 12-31-2021 14:33-0400 SaO2% (BldA) [Mass fraction] 99 % Jamila Slarb BROADCAST METEOROLOGIST [facility]; [facility] Work Phone: Comment on above: Room air 12-31-2021 14:33-0400 Systolic blood pressure 178 mm[Hg] Jamila Slarb BROADCAST METEOROLOGIST [facility]; [facility] Work [...] 08:32-0400 Body height 177.8 cm Radha Suius [facility]; [facility] Work Phone: Comment on above: no vs taken as this is phone encounter d ue to covid 01-05-2021 08:32-0400 Body mass index (BMI) [Ratio] 50.94 kg/m2 Radha Gravius [facility]; [facility] Work Phone: Comment on above: no vs taken as this is phone encounter d ue to covid 01-05-2021 08:32-0400 Body surface area Derived from formula 2.66 m2 Radha Gravius [facility]; [facility] Work Phone: Comment on above: no vs taken as this is phone encounter d ue to covid 01-05-2021 08:32-0400 Body weight 161.05 kg Radha Gravius [facility]; [facility] Work Phone: Comment on above: no vs taken as this is phone encounter d ue to covid 05-25-2020 09:31-0500 BMI (Body Mass Index) 50.94 kg/m2 [facility]; [facility] Work Phone: 05-25-2020 09:31-0500 Body Temperature 98.1 [degF] [facility]; [facility] Work Phone: Comment on above: Method: Thermal Scan 05-25-2020 09:31-0500 Body weight 161.[address] [facility]; [facility] Work Phone: 05-25-2020 09:31-0500 BSA (Body Surface Area) 2.[address] [facility]; [facility] Work Phone: 05-25-2020 09:31-0500 Height 177.[address] [facility]; [facility] Work Phone: 03-13-2020 10:35-0400 BMI (Body Mass Index) 50.94 kg/m2 [facility] Work Phone: 03-13-2020 10:35-0400 Body weight 161.05 kg [facility] Work Phone: 03-13-2020 10:35-0400 BSA (Body Surface Area) 2.66 m2 [facility] Work Phone: 03-13-2020 10:35-0400 Height 177.8 cm [facility] Work Phone: 09-13-2019 [...] Mass Index) 50.94 kg/m2 Jay Reed LPN [facility] Internal Medicine Work Phone: Comment on above: standing 144/84 04-06-2019 08:56-0500 Body Temperature 97.8 [degF] Jay Reed LPN [facility] Internal Medicine Work Phone: Comment on above: Method: Temporal standing 144/84 04-06-2019 08:56-0500 Body weight 161.05 kg Jay Reed LPN [facility] Internal Medicine Work Phone: Comment on above: standing 144/84 04-06-2019 08:56-0500 BP Diastolic 82 mm[Hg] Jay Reed LPN [facility] Internal Medicine Work Phone: Comment on above: Patient Position: Sitting; Cuff Location : Left Arm; Cuff Size: Standard standing 144/84 04-06-2019 08:56-0500 BP Systolic 142 mm[Hg] Jay Reed LPN [facility] Internal Medicine Work Phone: Comment on above: Patient Position: Sitting; Cuff Location : Left Arm; Cuff Size: Standard standing 144/84 04-06-2019 08:56-0500 BSA (Body Surface Area) 2.66 m2 Jay Reed LPN [facility] Internal Medicine Work Phone: Comment on above: standing 144/84 04-06-2019 08:56-0500 Height 177.8 cm Jay Reed LPN [facility] Internal Medicine Work Phone: Comment on above: standing 144/84 04-06-2019 08:56-0500 Pulse (Heart Rate) 122 /min Jay Reed LPN [facility] Work Phone: Comment on above: Pattern: Regular standing 144/84 04-06-2019 08:56-0500 Pulse Oximetry 97 % Wendie Dawn [facility] Internal Medicine Work Phone: Comment on above: Room air standing 144/84 04-06-2019 08:56-0500 Respiratory Rate 16 /min Jay Reed LPN [facility] Internal Medicine Work Phone: Comment on above: [...] 09:43-0400 Pulse Oximetry 98 % Wendiekarla Parkeron [facility] Internal Medicine Work Phone: Comment on above: Room air 03-16-2015 09:43-0400 Respiratory Rate 18 /min Paula Hernandez RN [facility] Work Phone: Comment on above: Pattern: Unlabored 03-16-2015 09:43-0400 SaO2% (BldA) [Mass fraction] 98 % Paula Hernandez RN [facility]; [facility] Work Phone: Comment on above: Room air 02-23-2015 07:35-0400 Body Temperature 97.6 [degF] Wendiekarla Parkeron [facility] Internal Medicine Work Phone: Comment on above: [...] Facility Start: 05-09-2025 ambulatory Wendieloly Dawn Facilit y:[facility] Start: 04-06-2025 End: 04-06-2025 ambulatory Wendieloly Dawn Facility:[facility] Start: 03-23-2025 End: 03-23-2025 ambulatory Wendiekarla Parkeron Facility:[facility] Start: 03-22-2025 Encounter for genera l adult medical examination without abnormal findings Wendie López [facility] Start: 03-17-2025 End: 03-17-2025 ambulatory Wendieloly Dawn Facility:[facility] Start: 08-24-2024 End: 08-24-2024 ambulatory Wendieloly Dawn Facility:[facility] Start: 12-27-2022 End: 08-04-2023 ambulatory [facility] Work Phone: Start: 12-27-2022 End: 12-27-2022 Patient encounter procedure [facility] Work Phone: Start: 12-17-2022 End: 12-17-2022 [...] 05-29-2020 End: 05-29-2020 Annotation/Addendum Wendie López [facility] Start: 05-25-2020 End: 05-25-2020 Office outpatient visit 15 minutes Wendie López [facility] Start: 03-13-2020 End: 03-13-2020 Office outpatient visit 15 minutes Wendie López [facility] Start: 09-13-2019 End: 09-13-2019 Office outpatient visit 15 minutes Wendie Dawn [facility] Start: 04-07-2019 End: 04-07-2019 Lab Order Wendie Dawn [facility] Start: 04-07-2019 Review Wendie Hartley [facility] Start: 04-06-2019 End: 04-06-2019 Office outpatient visit 15 minutes Wendie Dawn [facility] Start: 07-25-2016 End: 07-25-2016 Office outpatient visit 15 minutes Wendie Dawn [facility] Start: 03-16-2015 End: 03-16-2015 Office outpatient visit 15 minutes Wendie Dawn [facility] Start: 02-23-2015 End: 02-23-2015 Office outpatient new 30 minutes Wendie Dawn [facility] Internal Medicine Procedures Date Procedure Procedure Detail Performing Clinician Start: 12-27-2022 Computed tomography of abdomen and pelvis with contrast Start: 09-02-2022 End: 09-02-2022 Urgent Care Visit Report Procedure Note: See Note; NOTES: [facility] [address] [place] [address] OFFICE VISIT Date of Service: 09/02/22 MR#: [id number] Acct: [id number] Name: LB CUEVA Rep #: [id number] : 1970 Provider: INDERJIT Leroy Age/Sex: 52/M Location: [facility] Status: Signed Intake Vital Signs 12/30/19 09:30 Height 5 ft 10 in Intake Visit Reasons: [employer] Allergies No Known Allergies Allergy (Verified 12/30/19 09:32) PFSH Social History Smoking Status: Current some day smoker HPI HPI Details: LB CEUVA, is a 52 M who presents to [...] Emergency Department Summary Comments: See Note; NOTES: [facility] Medical Records Department [address] [place] [address] Emergency Department Summary 12/30/19 MR#: [id number] Acct: [id number] Name: LB CUEVA Rep #: [id number] : 1970 49 From: López Thomas MD [...] % (Auto) 25.3 % (19-41) 12/30/19 10:15 Miller % (Auto) 8.4 % (0-10) 12/30/19 10:15 [...] problems, contact your Primary Care Provider. Call [facility] ([phone]) or report to the closest Emergency Room. Call 911 if necessary. 12/30/19 1141 <Electronically signed by López Thomas MD> Date López Thomas MD Cosigner Signature (If Indicated): Date CC: DO Wendie Brewer Start: 12-30-2019 End: 01-03-2020 12 Lead EKG Comments: See Note; NOTES: [facility] Cardiovascular Services [address] [place] [address] 12 Lead EKG 12/30/19 0957 MR#: [id number] Acct: [id number] Name: LB CUEVA Rep #: [id number] : 1970 49 From: Polina Alva MD [...] ECG Confirmed by DEBBIE MEDEROS, MANOJ ([id number]), general expeditor LUIS FERRARI ([id number]) on 01/03/2020 9:32:37 AM Referred By: DIZZY/WEAK Confirmed By:MATTHEW ALVA MD 01/03/20 0932 Date Polina Alva MD CC: Dr. Wendie Dawn DO; Dr. López Thomas MD Signed Wendie Dawn Start: 12-30-2019 End: 12-30-2019 Brain/Head without Contrast Comments: See Note; NOTES: [facility] Imaging Services [address] [place] [address] Brain/Head without Contrast MR#: [id number] Acct: [id number] Name: LB CUEVA Rep #: [id number] : 1970 M 49 From: Misael ham MD PCP: Dr. Wendie Dawn DO Status: PRE ER Study: Brain/Head without Contrast Date of Exam: 11/12 Exam# [id number] Ordering Dr: López Thomas MD STUDY: CT [...] Wendie Dawn DO; Dr. López Thomas MD Transplant Coordinator: Signed Wendie Dawn Start: 04-19-2015 End: 04-19-2015 PT D/C of Non Returning Pt. Comments: See Note; NOTES: [facility] [address] [place] [address]. [address] [place] [address] Fax REHABILITATION SERVICES DISCHARGE SUMMARY MR#: [id number] Acct: [id number] Name: LB CUEVA Rep #: [id number] : 1970 45 From: Noe Garcias Referring [...] Evaluation - PT Comments: See Note; NOTES: [facility] [address] [facility] [place], [place] [address] Fax REHABILITATION SERVICES INITIAL EVALUATION MR#: [id number] Acct: [id number] Name: LB CUEVA Rep #: [id number] : 1970 44 From: Noe Garcias Referring Dr.: Wendie Dawn DO Status: REG RCR Insurance: [facility] Date: Patient's Visit Information LB CUEVA is [...] on his back without pain. 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 Please let me know [...] Min 4 Views Comments: See Note; NOTES: [facility] Imaging Services [address] [place] [address] Radiology Report MR#: [id number] Acct: [id number] Name: LB CUEVA Rep #: [id number] : 1970 M 44 From: Kiarra Boyce MD PCP: Wendie Dawn DO Status: REG CLI Study: L/S Spine Min 4 Views Date of Exam: 02/23/15 Exam# [id number] Ordering Dr: Wendie Dawn DO STUDY: X-RAY [...] MD at 7:22 EDT , Service support [phone], RAD/L/S Spine Min 4 Views IMPRESSION: Mild degenerative changes as above. Neuro foramina L5-S1, L4-5. Electronically Signed: Kiarra Boyce MD at 7:22 EDT , Service support [phone], CC: Wendie Dawn DO Transplant Coordinator: Signed Wendie Dawn Work Phone: Plan of Treatment Date Care Activity Detail Author Start: 12-16-2022 C-reactive protein C-REACTIVE PROTEIN (40238) [facility] Work Phone: Start: 12-16-2022 Sedimentation rate r bc non-automated Sed Rate Erythrocyte (09209) [facility]; [facility] Work Phone: Start: 12-16-2022 Assay of thyroid stimulating hormone tsh TSH (28481) [facility]; [facility] Work Phone: Start: 12-16-2022 Urnls dip stick/tabl et reagent auto microscopy URINALYSIS, W/ MICRO (53067) [facility]; [facility] Work Phone: Start: 12-16-2022 Urine albumin quantitative MICROALBUMIN: CREATININE RATIO (38348) AND (14704) [facility]; [facility] Work Phone: Start: 12-16-2022 Comprehensive metabo lic panel METABOLIC PANEL, COMPREHENSIVE (99260) [facility]; [facility] Work Phone: Start: 12-16-2022 Blood count complete auto&auto difrntl wbc CBC W/AUTO DIFF WBC (91361) [facility]; [facility] Work [...] Phone: Start: 01-08-2022 Lipid panel LIPID PANEL (94724) [facility] prehensive Internal Medicine; [facility] Work [...] [place] influenza 2019 Novel Coronavirus (COVID-19), KRISTY (03380) [facility]; [facility] Work Phone: Start: 01-05-2021 Procedure Education Eprescribe d prescriptions (G8553) [facility]; [facility] Work Phone: Start: 05-25-2020 Procedure Education Eprescribe d prescriptions (G8553) [facility]; [facility] Work Phone: Start: 05-25-2020 [place] influenza 2019 Novel Coronavirus (COVID-19), KRISTY (78134) [facility]; [facility] Work Phone: Start: 03-13-2020 Procedure Education Eprescribe d prescriptions (G8553) [facility] Work Phone: Start: 09-13-2019 Procedure Education Eprescribe d prescriptions (G8553) [facility] Work Phone: Start: 04-07-2019 Comprehensive metabo lic panel METABOLIC PANEL, COMPREHENSIVE (43483) [facility] Work Phone: Start: 04-06-2019 Procedure Education Eprescribe d prescriptions (G8553) [facility] Work Phone: Start: 04-06-2019 Provider Instruction s for Treatment Follow up if no improvement or if symptoms worsen [facility] Work Phone: Start: 04-06-2019 Blood count complete auto&auto difrntl wbc CBC, Platelets & Auto Diff (56664) [facility] Work Phone: Start: 04-06-2019 Comprehensive metabo lic panel Metabolic Panel, Comprehensive (66210) [facility] Work Phone: Start: 04-06-2019 Virus centrifuge enh ncd id imfluor stain ea Influenza A&B Viral Culture (04224) [facility] Work Phone: Start: 07-25-2016 [...] Phone: Payers Date Payer Category Payer Unknown [id number] 2024 Self-pay [id number] 2020 Private Health Insurance [id number] 2014 Unknown [id number] 1970 Unknown [id number] [id number] Unknown Unknown [id number] Unknown [id number] 2.16.8 [id number] Unknown [id number] 2.16.8 [id number] Unknown [id number] 2.16.8 [id number] Unknown [id number] 2.16.8 [id number] Unknown [id number] 2.16.8 [id number] Social History Date Type Detail Facility Start: 09[facility]02-2022 [facility] Start: 12-30-2019 Cigars [facility] Start: 1970 Sex Assigned At Male W [facility] Clinical Notes Note Date & Type Note Facility Evaluation note No assessment information availa ble [facility] Work Phone: Instructions Name Patient Instructions Indication:Non-smoker Start: 1 Instruction Type:Provider Instructions for Treatment How to Access Health Information Online using Patient Portal and [employer] Apps Indication:Non-smoker Start: 1 Instruction Type:Patient Education How to Access Health Information Online using Patient Portal and [employer] Apps Indication:Non-smoker Start: 0 Instruction Type:Patient Education [...] tion Online using Patient Portal and [employer]rd [employer] Apps Indication:Non-smoker Start:05-Jan-2021 Instruction Type:Patient Education How to Access Health Informa tion Online using Patient Portal and [employer]rd [employer] Apps Indication:Non-smoker Start:25-May-2020 Instruction Type:Patient Education [...] tion Online using Patient Portal and [employer] Apps Indication:Non-smoker Start:05-Jan-2021 Instruction Type:Patient Education How to Access Health Informa tion Online using Patient Portal and [employer] Apps Indication:Non-smoker Start:25-May-2020 Instruction Type:Patient Education [...] tion Online using Patient Portal and [employer] Apps Indication:Non-smoker Start:31-Dec-2021 Instruction Type:Patient Education Patient Instructions Indication:COVID Start:19-Jun-2021 Instruction Type:Provider Instructions for Treatment Patient Instructions Indication:Non-smoker Start:05-Jan-2021 Instruction Type:Provider Instructions for Treatment How to Access Health Informa tion Online using Patient Portal and [employer]rd [employer] Apps Indication:Non-smoker Start:05-Jan-2021 Instruction Type:Patient Education How to Access Health Informa tion Online using Patient Portal and [employer]rd [employer] Apps Indication:Non-smoker Start:25-May-2020 Instruction Type:Patient Education [...] Informa tion Online using Patient Portal and [employer] Apps Indication:Non-smoker Start:31-Dec-2021 Instruction Type:Patient Education Patient Instructions Indication:COVID Start:19-Jun-2021 Instruction Type:Provider Instructions for Treatment Patient Instructions Indication:Non-smoker Start:05-Jan-2021 Instruction Type:Provider Instructions for Treatment How to Access Health Informa tion Online using Patient Portal and [employer] Apps Indication:Non-smoker Start:05-Jan-2021 Instruction Type:Patient Education How to Access Health Informa tion Online using Patient Portal and [employer] Apps Indication:Non-smoker Start:25-May-2020 Instruction Type:Patient Education [...] tion Online using Patient Portal and [employer] Apps Indication:Non-smoker Start:08-Jan-2022 Instruction Type:Patient Education Patient Instructions Indication:Non-smoker Start:31-Dec-2021 Instruction Type:Provider Instructions for Treatment How to Access Health Informa tion Online using Patient Portal and [employer] Apps Indication:Non-smoker Start:31-Dec-2021 Instruction Type:Patient Education Patient Instructions Indication:COVID Start:19-Jun-2021 Instruction Type:Provider Instructions for Treatment Patient Instructions Indication:Non-smoker Start:05-Jan-2021 Instruction Type:Provider Instructions for Treatment How to Access Health Informa tion Online using Patient Portal and 3rd [employer] Apps Indication:Non-smoker Start:05-Jan-2021 Instruction Type:Patient Education How to Access Health Informa tion Online using Patient Portal and [employer]rd [employer] Apps Indication:Non-smoker Start:25-May-2020 Instruction Type:Patient Education [...] tion Online using Patient Portal and [employer]rd [employer] Apps Indication:BMI 50.0-59.9, adult Start:14-Mar-2022 Instruction Type:Patient Education Patient Instructions Indication:Non-smoker Start:08-Jan-2022 Instruction Type:Provider Instructions for Treatment How to Access Health Informa tion Online using Patient Portal and 3rd [employer] Apps Indication:Non-smoker Start:08-Jan-2022 Instruction Type:Patient Education Patient Instructions Indication:Non-smoker Start:31-Dec-2021 Instruction Type:Provider Instructions for Treatment How to Access Health Informa tion Online using Patient Portal and 3rd [employer] Apps Indication:Non-smoker Start:31-Dec-2021 Instruction Type:Patient Education Patient Instructions Indication:COVID Start:19-Jun-2021 Instruction Type:Provider Instructions for Treatment Patient Instructions Indication:Non-smoker Start:05-Jan-2021 Instruction Type:Provider Instructions for Treatment How to Access Health Informa tion Online using Patient Portal and 3rd [employer] Apps Indication:Non-smoker Start:05-Jan-2021 Instruction Type:Patient Education How to Access Health Informa tion Online using Patient Portal and [employer]rd [employer] Apps Indication:Non-smoker Start:25-May-2020 Instruction Type:Patient Education [...] tion Online using Patient Portal and [employer]rd [employer] Apps Indication:Non-smoker Start:12-Jul-2022 Instruction Type:Patient Education Patient Instructions Indication:BMI 50.0-59.9, adult Start:14-Mar-2022 Instruction Type:Provider Instructions for Treatment How to Access Health Informa tion Online using Patient Portal and 3rd [employer] Apps Indication:BMI 50.0-59.9, adult Start:14-Mar-2022 Instruction Type:Patient Education Patient Instructions Indication:Non-smoker Start:08-Jan-2022 Instruction Type:Provider Instructions for Treatment How to Access Health Informa tion Online using Patient Portal and 3rd [employer] Apps Indication:Non-smoker Start:08-Jan-2022 Instruction Type:Patient Education Patient Instructions Indication:Non-smoker Start:31-Dec-2021 Instruction Type:Provider Instructions for Treatment How to Access Health Informa tion Online using Patient Portal and 3rd [employer] Apps Indication:Non-smoker Start:31-Dec-2021 Instruction Type:Patient Education Patient Instructions Indication:COVID Start:19-Jun-2021 Instruction Type:Provider Instructions for Treatment Patient Instructions Indication:Non-smoker Start:05-Jan-2021 Instruction Type:Provider Instructions for Treatment How to Access Health Informa tion Online using Patient Portal and 3rd [employer] Apps Indication:Non-smoker Start:05-Jan-2021 Instruction Type:Patient Education How to Access Health Informa tion Online using Patient Portal and 3rd [employer] Apps Indication:Non-smoker Start:25-May-2020 Instruction Type:Patient Education [...] tion Online using Patient Portal and 3rd [employer] Apps Indication:BMI 50.0-59.9, adult Start:16-Dec-2022 Instruction Type:Patient Education Patient Instructions Indication:Non-smoker Start:12-Jul-2022 Instruction Type:Provider Instructions for Treatment How to Access Health Informa tion Online using Patient Portal and 3rd [employer] Apps Indication:Non-smoker Start:12-Jul-2022 Instruction Type:Patient Education Patient Instructions Indication:BMI 50.0-59.9, adult Start:14-Mar-2022 Instruction Type:Provider Instructions for Treatment How to Access Health Informa tion Online using Patient Portal and 3rd [employer] Apps Indication:BMI 50.0-59.9, adult Start:14-Mar-2022 Instruction Type:Patient Education Patient Instructions Indication:Non-smoker Start:08-Jan-2022 Instruction Type:Provider Instructions for Treatment How to Access Health Informa tion Online using Patient Portal and 3rd [employer] Apps Indication:Non-smoker Start:08-Jan-2022 Instruction Type:Patient Education Patient Instructions Indication:Non-smoker Start:31-Dec-2021 Instruction Type:Provider Instructions for Treatment How to Access Health Informa tion Online using Patient Portal and 3rd [employer] Apps Indication:Non-smoker Start:31-Dec-2021 Instruction Type:Patient Education Patient Instructions Indication:COVID Start:19-Jun-2021 Instruction Type:Provider Instructions for Treatment Patient Instructions Indication:Non-smoker Start:05-Jan-2021 Instruction Type:Provider Instructions for Treatment How to Access Health Informa tion Online using Patient Portal and 3rd [employer] Apps Indication:Non-smoker Start:05-Jan-2021 Instruction Type:Patient Education How to Access Health Informa tion Online using Patient Portal and 3rd [employer] Apps Indication:Non-smoker Start:25-May-2020 Instruction Type:Patient Education [...] tion Online using Patient Portal and 3rd [employer] Apps Indication:BMI 50.0-59.9, adult Start:16-Dec-2022 Instruction Type:Patient Education Patient Instructions Indication:Non-smoker Start:12-Jul-2022 Instruction Type:Provider Instructions for Treatment How to Access Health Informa tion Online using Patient Portal and 3rd [employer] Apps Indication:Non-smoker Start:12-Jul-2022 Instruction Type:Patient Education Patient Instructions Indication:BMI 50.0-59.9, adult Start:14-Mar-2022 Instruction Type:Provider Instructions for Treatment How to Access Health Informa tion Online using Patient Portal and 3rd [employer] Apps Indication:BMI 50.0-59.9, adult Start:14-Mar-2022 Instruction Type:Patient Education Patient Instructions Indication:Non-smoker Start:08-Jan-2022 Instruction Type:Provider Instructions for Treatment How to Access Health Informa tion Online using Patient Portal and 3rd [employer] Apps Indication:Non-smoker Start:08-Jan-2022 Instruction Type:Patient Education Patient Instructions Indication:Non-smoker Start:31-Dec-2021 Instruction Type:Provider Instructions for Treatment How to Access Health Informa tion Online using Patient Portal and 3rd [employer] Apps Indication:Non-smoker Start:31-Dec-2021 Instruction Type:Patient Education Patient Instructions Indication:COVID Start:19-Jun-2021 Instruction Type:Provider Instructions for Treatment Patient Instructions Indication:Non-smoker Start:05-Jan-2021 Instruction Type:Provider Instructions for Treatment How to Access Health Informa tion Online using Patient Portal and 3rd [employer] Apps Indication:Non-smoker Start:05-Jan-2021 Instruction Type:Patient Education How to Access Health Informa tion Online using Patient Portal and 3rd [employer] Apps Indication:Non-smoker Start:25-May-2020 Instruction Type:Patient Education [...] Informa tion Online using Patient Portal and [employer] Apps Indication:Non-smoker Start:25-May-2020 Instruction Type:Patient Education [...] Informa tion Online using Patient Portal and [employer] Apps Indication:Non-smoker Start:25-May-2020 Instruction Type:Patient Education Patient [...] No September 02, 2022 1:14pm 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 [employer] [facility]. provides no warranty or guarantee of the accuracy or completeness of information in this document.
[2025-05-09] MEDS: Lactated Ringers 1,000 ML 15 ML IV (08:11)
--- NOTE | 2025-05-09 08:28 | PRE.ANES_ITS ---
ASA Classification* ASA Classification ASA Classification: 3 Assessment & Plan Anesthesia* Anesthesia Assessment Anesthesia Assessment: Discussed sedation and/or anesthesia options, risks, benefits, and alternatives with patient/parents/legal guardian/POA. Questions invited. The patient/parents/legal guardian/POA seems to understand and agrees to proceed with anesthesia plan. Reviewed the physical assessment, medical history, allergy history and patient home medications list prior to surgery/procedure/anesthetic and documented any changes. Performed airway and anesthesia risk assessments. Anesthesia Type Anesthesia Type: MAC History Source History Obtained from:: Patient and Chart Anesthesia Focused Assessment* Temperature: 98.3 F Pulse Rate: 90 Blood Pressure: 139/80 Respiratory Rate: 18 Pulse Ox: 96 Oxygen Delivery Method: Room Air Airway Assessment Mouth opens: >3 cm Mallampati Score: IV Teeth Condition: Missing (Patient has several missing teeth. Rest are tight.) Neck Range of motion (ROM): Limited ROM (Somewhat Decreased) Labs Anesthesia Preop lab: CBC WBC, (4.4-11.0) 8.2 K/mm3 12/30/19, 10:15 RBC, (4.6-6.2) 5.72 M/mm3 12/30/19, 10:15 Hgb, (13.0-16.5) 16.1 g/dL 12/30/19, 10:15 Hct, (40-54) 51.3 % 12/30/19, 10:15 Plt Count, (150-450) 235 K/mm3 12/30/19, 10:15 CHEMISTRY Potassium, (3.5-5.1) 4.6 mmol/L 12/30/19, 10:15 Sodium, (136-145) 138 mmol/L 12/30/19, 10:15 BUN, (7-18) 14 mg/dL 12/30/19, 10:15 Creatinine, (0.70-1.30) 1.17 mg/dL 12/30/19, 10:15 Glucose, (70-99) 92 mg/dL 03/17/25, 12:42 COAG Pre-Assessment Diagnosis/Proposed Procedure Planned Operative Procedure(s): COLONOSCOPY Anesthesia History Anesthesia History - wheat shipper: Anesthesia History - wheat shipper Hx Hospitalization No 05/05/25 12:13 Any Problems With Anesthesia Yes: N&V 05/05/25 12:13 Cholinesterase deficiency No 05/05/25 12:13 You/Your Family Experience No 05/05/25 12:13 fever (hyperthermia) with Relationship Recent Exposure to Contagious No 05/09/25 07:51 Disease Does patient have nerve No 05/05/25 12:13 stimulator Patient instructed to have device shut off --Does patient have Pacemaker No 05/09/25 07:51 or ICD? When Was Last Pacemaker Check QUESTION #4 FULL TEXT: You/Your Family Experience fever (hyperthermia) with Anesthesia Last Oral Intake Last Oral intake: Last Oral Intake NPO since 23:30 05/09/25 07:51 Meds taken in AM with sips of No 05/09/25 07:51 water? Meds patient instructed to take am of surgery PONV PONV - wheat shipper: PONV - wheat shipper Female No 05/05/25 12:13 HX of Motion Sickness Yes 05/05/25 12:13 HX of N/V After Surgery Yes 05/05/25 12:13 Non-Smoker Yes 05/05/25 12:13 Duration of Surgery greater No 05/05/25 12:13 than 60 minutes Number of Risk Factors 3 05/05/25 12:13 PONV Score Moderate Risk 05/05/25 12:13 Height & Weight Height & Weight: Anesthesia: Height & Weight Height 5 ft 10 in 05/09/25 07:51 Weight: 164 kg 05/09/25 07:51 Body Mass Index (BMI) 51.8 05/09/25 07:51 Respiratory Assessment Respiratory Assessment - wheat shipper: Respiratory Tract Infection Hx - wheat shipper Hx Respiratory Tract Infection No 05/05/25 12:13 STOP Sleep Apnea STOP Sleep Apnea - wheat shipper: STOP Sleep Apnea - wheat shipper Hx Hypertension No 05/09/25 07:38 Hx Sleep Apnea Yes 05/09/25 07:38 CPAP Yes 05/05/25 12:13 BIPAP No 05/05/25 12:13 Do you snore loudly (louder than talking or can be heard Do you often feel tired/ fatigued/ sleepy during daytime? Has anyone observed you stop breathing during sleep? STOP Results Positive 05/09/25 07:38 QUESTION #5 FULL TEXT : Do you snore loudly (louder than talking or can be heard through closed doors)? 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 Specify any problems Hx of Preganancy in last 3 N/A 05/05/25 12:13 Months Nurse Filling Out Transfusion VCHRISTIN 05/05/25 12:13 & Questions: Date: 05/05/25 05/05/25 12:13 Time: 12:14 05/05/25 12:13 Patient unable to answer at this time (ie. confused, unrespo /Reproduction History /Reproductive History - wheat shipper: /Reproductive Hx- wheat shipper Hx Now Gestational Age (in weeks): EDC: Hx Hx Para Hx Section SAB Does the father of the baby or his family experience fever w Father of the baby Malignant Hypertension history comment Active Medications Active Medications: Current Medications Generic Name Dose Route Start Last Admin Trade Name Freq PRN Reason Stop Dose Admin Lactated Ringer's 1,000 mls @ 15 mls/hr 05/09/25 08:15 05/09/25 08:11 IV 15 mls/hr .Q48H CAN Administration PFSH Medical History Wears glasses Alcohol use Arthritis History of IBS CPAP (continuous positive airway pressure) dependence Sleep apnea Hypertension Abdominal pain History of change in bowel patterns Home Medications ?Medication ?Instructions ?Recorded ?Last Taken ?Type lisinopril 20 mg tablet 20 mg PO DAILY #30 tabs 06/1905/08/25 Rx inulin 2 gram chewable tablet 6 g PO DAILY 05/05/25 History (Fiber Delights) Allergy/AdvReac Type Severity Reaction Status Date / Time No Known Allergies Allergy Verified 05/09/25 07:50 Family History Grandmother Breast cancer Mother Cancer Lung Cancer CVA (cerebral vascular accident) Father Cancer Hypertension Brother Cancer Hypertension Surgical History History of open reduction and internal fixation (ORIF) procedure Social History Smoking Status: Never smoker alcohol intake: current alcohol intake frequency: a few times a week Alcohol type: hard liquor substance use type: does not use Review of Systems (Anesthesia) ROS Narrative System reviewed and no additional complaints, except as documented.
--- NOTE | 2025-05-09 09:00 | COLBX_PTH ---
PATIENT: LB CUEVA LOC: EN U#:[id number] AGE/SX: 55/M ROOM: RE05/09/[address]: Dr. Mallory Capsp MD : 1970 BED: DIS: 05/09/2025 SPEC #: [id number] RECD: 05/09/25 11:43 STATUS: ROQUE REQ #: [id number] WARD: 05/09/25 09:[address]: Mallory Capps DEPT: SURGICAL PATHOLOGY RECD BY: Jay Mota ENTERED: 05/09/25 13:38 SP TYPE: COLON BX OT DR: Dr. Wendie Dawn DO Tissues: A - Cecum, NOS B - Descending colon C - Sigmoid colon biopsy Procedures: Surgery Specimen Level IV HEADER OPERATION: Colonscopy with polypectomy PRE-OP DIAGNOSIS: Encounter for screening for malignant neoplasm of colon TISSUE SUBMITTED: A- Cecal polyp, B- Descending colon biopsy, C- Sigmoid colon biopsy MICROSCOPIC DIAGNOSIS A. Colon, cecum, polypectomy: - Tubulovillous adenoma, multiple fragments. B. Colon, descending, biopsy: - Tubular adenoma. C. Colon, sigmoid, biopsy: - Mucosal prolapse with hyperplastic crypt change. MICROSCOPIC DESCRIPTION Slides are reviewed. GROSS DESCRIPTION A. Received in fixative is one container labeled with the patient's name and designated Cecal polyp. The specimen consists of multiple irregular fragments of barron tissue that in aggregate measure 1.7 x 0.8 x 0.3 cm. The specimen is totally submitted in one cassette. B. Received in fixative is one container labeled with the patient's name and designated Descending colon biopsy. The specimen consists of one irregular fragment of barron tissue that measures 0.2 cm. The specimen is totally submitted in one cassette. C. Received in fixative is one container labeled with the patient's name and designated Sigmoid colon biopsy. The specimen consists of two irregular fragments of barron tissue that measure 0.2 and 0.3 cm. The specimen is totally submitted in one cassette. IN 05/09/2025 CPT:33541q3
--- NOTE | 2025-05-09 10:16 | OP.PROVAT_ITS ---
05/09/2025 Wendie Dawn [address] [place] [address] Re : Colonoscopy procedure for Delroy Malone Dear Dr. Dawn This procedure was performed on Friday, May 09, 2025. My impressions and recommendations are as follows: Impressions : - Three less than 5 mm polyps in the sigmoid colon and in the descending colon. - One 6 mm polyp in the cecum, removed with a hot snare. Resected and retrieved. - The examination was otherwise normal on direct and retroflexion views. Recommendations : - Discharge patient to home. - Resume previous diet. - Continue present medications. - Await pathology results. - Repeat colonoscopy in 5 years for surveillance based on pathology results. My findings are described in the full procedure note, which is enclosed. If I can be of further assistance, please feel free to contact me at Doctor phone number(s): , Work: . Sincerely, MD Mallory Chambers MD 05/09/2025 10:15:43 AM This report has been signed electronically.
--- NOTE | 2025-05-09 10:16 | OP.COLON_ITS ---
Patient Name: Delroy Malone Procedure Date: 05/09/2025 9:36 AM Date of : 1970 Age: 55 Procedure: Colonoscopy Indications: Screening for colorectal malignant neoplasm Providers: Mallory Capps MD Referring MD: Wendie Dawn Medicines: Monitored Anesthesia Care Patient Profile: This is a 55 year old male. Last Colonoscopy: none. The patient's first colonoscopy is today. Complications: No immediate complications. Procedure: Pre-Anesthesia Assessment: - Prior to the procedure, a History and Physical was performed, and patient medications and allergies were reviewed. The patient's tolerance of previous anesthesia was also reviewed. The risks and benefits of the procedure and the sedation options and risks were discussed with the patient. All questions were answered, and informed consent was obtained. Prior Anticoagulants: The patient has taken no anticoagulant or antiplatelet agents. ASA Grade Assessment: Per anesthesia. After reviewing the risks and benefits, the patient was deemed in satisfactory condition to undergo the procedure. After I obtained informed consent, the scope was passed under direct vision. Throughout the procedure, the patient's blood pressure, pulse, and oxygen saturations were monitored continuously. The pediatric colonoscope was introduced through the anus and advanced to the cecum, identified by the appendiceal orifice, ileocecal valve and palpation. The colonoscopy was performed without difficulty. The patient tolerated the procedure well. The quality of the bowel preparation was good. Scope In: 9:44:56 AM Scope Withdrawal Time 0 hours 16 minutes 48 seconds Scope Out: 10:09:43 AM Total Procedure Duration Time 0 hours 24 minutes 47 seconds Findings: The perianal and digital rectal examinations were normal. Three sessile polyps were found in the sigmoid colon and descending colon. The polyps were less than 5 mm in size. A 6 mm polyp was found in the cecum. The polyp was sessile. The polyp was removed with a hot snare. Resection and retrieval were complete. The exam was otherwise without abnormality on direct and retroflexion views. Impression: - Three less than 5 mm polyps in the sigmoid colon and in the descending colon. - One 6 mm polyp in the cecum, removed with a hot snare. Resected and retrieved. - The examination was otherwise normal on direct and retroflexion views. Recommendation: - Discharge patient to home. - Resume previous diet. - Continue present medications. - Await pathology results. - Repeat colonoscopy in 5 years for surveillance based on pathology results. Procedure Code(s): --- Professional --- 38284, PT, Colonoscopy, flexible; with removal of tumor(s), polyp(s), or other lesion(s) by snare technique Diagnosis Code(s): --- Professional --- Z12.11, Encounter for screening for malignant neoplasm of colon D12.5, Benign neoplasm of sigmoid colon D12.4, Benign neoplasm of descending colon D12.0, Benign neoplasm of cecum CPT copyright 2021 [employer]. All rights reserved. The codes documented in this report are preliminary and upon horticultural specialty grower review may be revised to meet current compliance requirements. MD Mallory Chambers MD 05/09/2025 10:15:43 AM This report has been signed electronically. Number of Addenda: 0 Note Initiated On: 05/09/2025 9:36 AM
--- NOTE | 2025-05-09 10:24 | PCM.POST.ANE ---
Anesthesia: Postop Eval I Current Vital Signs Temperature: 97.1 F Pulse Rate: 101 Blood Pressure: 147/90 Respiratory Rate: 16 Pulse Ox: 96 Oxygen Delivery Method: Room Air Assessment Airway patent: Yes Spontaneous unlabored respirations: Yes Mental status: Awake and Calm nausea: No Vomiting: No Anesthesia Complication: No Fluid Hydration Crystalloid volume administer (ml): 400 Total IV fluid infused: 400 Progress Note Anesthesia document: Postop Eval 1 completed: Yes
--- NOTE | 2025-05-09 14:58 | PCM.POSTANE2 ---
Anesthesia Postop Eval I Sum Postop Eval Completion status Anesthesia document: Postop Eval 1 completed: Yes Anesthesia Postop Eval I Summary Anesthesia Postop Eval I Summary: Anesthesia Postop Eval I: Assessment Summary Airway patent Yes 05/09/25 10:31 [email or web address] Spontaneous unlabored Yes 05/09/25 10:31 [email or web address] respirations Mental status Awake,Calm 05/09/25 10:31 [email or web address] nausea No 05/09/25 10:31 [email or web address] Vomiting No 05/09/25 10:31 [email or web address] Anesthesia Postop Eval I: Fluid Summary Crystalloid volume administer 400 05/09/25 10:31 [email or web address] (ml) Colloids volume administered ( ml) Blood Product volume administered (ml) Total IV fluid infused 400 05/09/25 10:31 [email or web address] Anesthesia Postop Eval I: Summary Notes Anesthesia Complication No 05/09/25 10:31 [email or web address] Anesthesia Complication Comment: Post-operative progress note Anesthesia: Postop Eval II Evaluation Mental status: Awake and Calm Pain Level: 0 nausea: No Vomiting: No Complications Anesthesia Complication: No
== END 2025-05-09 10:53 | disposition home or self-care (01) ==
LOC: EN 07:33 → AC 07:34
PROVIDERS: PCP Internal Medicine; Referring Provider Internal Medicine; Visit Provider Surgery
PROC: 0DJD8ZZ Inspection of Lower Intestinal Tract, Via Natural or Artificial Opening Endoscopic (ICD-10-PCS; CPT 45378; principal; 2025-05-09 08:55)
DX: Z12.11 Encounter for screening for malignant neoplasm of colon (principal); D12.0 Benign neoplasm of cecum; D12.4 Benign neoplasm of descending colon; I10 Essential (primary) hypertension; Z79.899 Other long term (current) drug therapy
CPT/HCPCS: 45385; 88305; J2405